=== PATIENT | female | born 1990 | race Caucasian/White ===

== ENCOUNTER 2019-12-18 06:52 | Outpatient (NON) | payer OTHER, SELFPAY ==
[2019-12-18 22:14] LABS: SARS-CoV-2 RNA PCR Negative
== END 2019-12-18 06:53 ==
PROVIDERS: PCP Internal Medicine; Visit Provider Internal Medicine
DX: Z20.828 Contact with and (suspected) exposure to other viral communicable diseases (principal); R68.89 Other general symptoms and signs
CPT/HCPCS: 87635; C9803; U0003

== ENCOUNTER 2019-12-20 15:33 | Outpatient (CLI) | payer OTHER, SELFPAY ==
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
== END 2019-12-20 15:34 | disposition home or self-care (01) ==
PROVIDERS: PCP Internal Medicine; Visit Provider Nurse Practitioner
DX: R05 Cough (principal)
CPT/HCPCS: 71046

== ENCOUNTER 2020-02-08 09:02 | Outpatient (CLI) | payer OTHER, SELFPAY ==
--- NOTE | ~2020-02-08 | US_ITS ---
US breast LT limited INDICATION: Palpable left breast lump at 9-10:00 position. Left breast pain. TECHNIQUE: Dedicated Limited left breast ultrasound COMPARISON: No prior studies for comparison. FINDINGS: The left breast is composed of normal heterogeneous echotexture without focal solid or cyst ic mass. IMPRESSION: 1: Normal left breast ultrasound. BI-RADS CATEGORY 1 - NEGATIVE Reviewed, dictated and finalized at location A. GER PROCESS EXCELLENCE
== END 2020-02-08 09:03 ==
LOC: MICIMG 09:02
PROVIDERS: Visit Provider Nurse Practitioner Obstetrics & Gynecology
DX: N63.20 Unspecified lump in the left breast, unspecified quadrant (principal)
CPT/HCPCS: 76642

== ENCOUNTER 2021-01-20 07:56 | Outpatient (CLI) | payer OTHER, SELFPAY ==
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
[2021-02-09 15:28] VITALS: BMI 53.9
== END 2021-01-21 07:41 | disposition home or self-care (01) ==
LOC: ANHCSM 07:57
PROVIDERS: PCP Internal Medicine; Visit Provider Nurse Practitioner Family
DX: G47.33 Obstructive sleep apnea (adult) (pediatric) (principal); Z99.89 Dependence on other enabling machines and devices
CPT/HCPCS: 95811

== ENCOUNTER 2021-03-20 09:34 | Outpatient (CLI) | payer OTHER, SELFPAY ==
[2021-03-20 11:25] LABS: Lithium 0.2 mmol/L (0.6-1.2)
== END 2021-03-20 09:35 | disposition home or self-care (01) ==
PROVIDERS: PCP Internal Medicine; Visit Provider Internal Medicine
DX: Z51.81 Encounter for therapeutic drug level monitoring (principal); Z79.899 Other long term (current) drug therapy
CPT/HCPCS: 36415; 80178

== ENCOUNTER 2021-09-16 09:29 | Outpatient (CLI) | payer OTHER, SELFPAY ==
[2021-09-16 10:02] LABS: Alanine Aminotransferase 21 U/L (6-35); Albumin Level 4.2 g/dL (3.5-5.1); Alkaline Phosphatase 46 U/L (38-126); Anion Gap 7 mmol/L (8-16); Aspartate Amino Transferase 23 U/L (14-36); Bilirubin,Total 0.6 mg/dL (0.2-1.3); Blood Urea Nitrogen 10 mg/dL (7-17); Calcium 8.4 mg/dL (8.4-10.2); Carbon Dioxide 27 mmol/L (22-30); Chloride 103 mmol/L (98-107); Cholesterol 143 mg/dL (0-200); Estimated Glomerular Filt Rate > 60; Glucose 95 mg/dL (65-110); HDL Direct 35 mg/dL; Potassium 4.4 mmol/L (3.4-5.0); Sodium 137 mmol/L (137-145); Triglycerides 164 mg/dL (<150)
[2021-09-16 10:12] LABS: LDL Cholesterol Direct 58 mg/dL
[2021-09-16 10:23] LABS: Appearance Urine Cloudy (Clear); Bacteria Urine Trace /hpf; Bilirubin Urine 1+ (Negative); Blood Urine Negative (Negative); Color Urine Yellow (Yellow); Glucose Urine UA Negative (Negative); Ketones Urine Negative (Negative); Leukocyte Esterase Ur 2+ LEU/UL (Negative); Mucus Urine Rare /lpf; Nitrate Urine Negative (Negative); Protein Urine 2+ mg/dL (Negative); RBC Urine 21-50 /hpf (0-2); Specific Grav Ur 1.025 (1.001-1.035); Squamous Epithelial Cell Urine Many /hpf (Few); Urobilinogen Urine 0.2 mg/dL (<2.0); WBC Clumps Urine Present /HPF; WBC Urine 31-50 /hpf; pH Urine 6.5 (5.0-9.0)
[2021-09-16 10:36] LABS: Add Urine Microscopic? YES
[2021-09-16 11:11] LABS: Hemoglobin A1C 5.3 % (<5.7)
== END 2021-09-16 09:30 | disposition home or self-care (01) ==
LOC: ANHLAB 09:31
PROVIDERS: PCP Internal Medicine; Visit Provider Nurse Practitioner
DX: G47.00 Insomnia, unspecified (principal); E88.81 Metabolic syndrome and other insulin resistance; R35.0 Frequency of micturition; Z13.21 Encounter for screening for nutritional disorder
CPT/HCPCS: 36415; 80053; 80061; 81001; 83036; 84443; 87086; 87088

== ENCOUNTER 2022-06-02 17:13 | Outpatient (CLI) | payer OTHER, SELFPAY ==
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
== END 2022-06-02 17:14 ==
PROVIDERS: PCP Internal Medicine; Visit Provider Chiropractor
DX: M47.816 Spondylosis without myelopathy or radiculopathy, lumbar region (principal); M47.814 Spondylosis without myelopathy or radiculopathy, thoracic region
CPT/HCPCS: 72072; 72110

== ENCOUNTER 2022-06-09 16:13 | Outpatient (CLI) | payer OTHER, SELFPAY ==
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
== END 2022-06-09 16:14 | disposition home or self-care (01) ==
PROVIDERS: PCP Internal Medicine; Visit Provider Nurse Practitioner
DX: R51.9 Headache, unspecified (principal)
CPT/HCPCS: 70450

== ENCOUNTER 2022-10-19 08:51 | Outpatient (CLI) | payer BC, SELFPAY ==
--- NOTE | ~2022-10-19 | XR_ITS ---
EXAMINATION: XR ankle RT min 3V INDICATION: Right ankle pain TECHNIQUE: Four views of the right ankle are obtained. COMPARISON: None available FINDINGS: Bone alignment is normal. There is no fracture. There is diffuse soft tissue swelling of th e ankle. IMPRESSION: 1. Ankle soft tissue swelling without acute osseous abnormality. Reviewed, dictated and finalized at location A.
== END 2022-10-19 08:52 | disposition home or self-care (01) ==
PROVIDERS: PCP Family Medicine; Visit Provider Nurse Practitioner Family
DX: S99.911A Unspecified injury of right ankle, initial encounter (principal); X58.XXXA Exposure to other specified factors, initial encounter; M79.89 Other specified soft tissue disorders
CPT/HCPCS: 73610

== ENCOUNTER 2023-09-21 08:43 | Outpatient (CLI) | payer MEDICAID, SELFPAY ==
[2023-09-21 10:09] LABS: Basophils Percent Auto 0.3 % (0.2-1.2); Eosinophils Absolute Auto 0.1 K/mm3 (0-0.3); Eosinophils Percent Auto 0.9 % (0-4.4); Hemoglobin 13.5 g/dL (12.0-15.0); Immature Granulocyte Absolute 0.08 K/mm3 (0.00-0.031); Immature Granulocyte Percent A 0.7 % (0-0.5); Lymphocytes Absolute Auto 2.63 K/mm3 (0.9-3.2); Lymphocytes Percent Auto 22.4 % (18.3-44.2); Mean Corpuscular HGB Conc 31.4 g/dl (32-36); Mean Corpuscular Hemoglobin 25.4 pg (26-34); Mean Platelet Volume 9.9 fl (7.4-10.4); Monocytes Absolute Auto 0.6 K/mm3 (0.1-0.6); Monocytes Percent Auto 4.9 % (2.6-8.5); Neutrophils Absolute Auto 8.3 K/mm3 (1.3-6.7); Neutrophils Percent Auto 70.8 % (45.5-73.1); Platelet Count Result 375 k/mm3 (150-375); Red Blood Count 5.31 M/mm3 (4.2-5.4); Red Cell Distribution Width 13.9 % (11.5-14.5); White Blood Count 11.7 K/mm3 (4.5-10.0)
[2023-09-21 10:23] LABS: Alanine Aminotransferase 30 U/L (6-35); Albumin Level 4.3 g/dL (3.5-5.1); Alkaline Phosphatase 66 U/L (38-126); Anion Gap 10 mmol/L (4-12); Aspartate Amino Transferase 28 U/L (14-36); Bilirubin,Total 0.6 mg/dL (0.2-1.3); Blood Urea Nitrogen 9 mg/dL (7-17); Calcium 8.7 mg/dL (8.4-10.2); Carbon Dioxide 27 mmol/L (22-30); Chloride 100 mmol/L (98-107); Cholesterol 164 mg/dL (0-200); Estimated Glomerular Filt Rate > 60; Glucose 107 mg/dL (65-110); HDL Direct 39 mg/dL; Potassium 3.7 mmol/L (3.4-5.0); Sodium 137 mmol/L (137-145); Triglycerides 120 mg/dL (<150)
[2023-09-21 10:34] LABS: LDL Cholesterol Direct 90 mg/dL
[2023-09-21 10:48] LABS: Vitamin D 25 Hydroxy 37.6 ng/mL
[2023-09-21 12:35] LABS: Hemoglobin A1C 6.6 % (<5.7)
[2023-09-23 15:19] LABS: Amphetamines NEGATIVE ng/mL (<500); Barbiturates NEGATIVE ng/mL (<300); Benzodiazepines NEGATIVE ng/mL (<100); Cocaine Metabolite NEGATIVE ng/mL (<150); Marijuana Metabolite POSITIVE ng/mL (<20); Methadone Metabolite NEGATIVE ng/mL (<100); Opiates NEGATIVE ng/mL (<100); Oxidant NEGATIVE mcg/mL (<200); pH 8.1 (4.5-9.0)
== END 2023-09-21 08:44 | disposition home or self-care (01) ==
LOC: ANHLAB 08:45
PROVIDERS: PCP Nurse Practitioner Family; Visit Provider Nurse Practitioner Family
DX: F31.10 Bipolar disorder, current episode manic without psychotic features, unspecified (principal); E66.01 Morbid (severe) obesity due to excess calories; G47.00 Insomnia, unspecified; I10 Essential (primary) hypertension; Z79.899 Other long term (current) drug therapy; F90.9 Attention-deficit hyperactivity disorder, unspecified type; F41.9 Anxiety disorder, unspecified
CPT/HCPCS: 36415; 80053; 80061; 80307; 82306; 83036; 84439; 84443; 85025

== ENCOUNTER 2024-02-06 08:30 | Outpatient (CLI) | payer MEDICAID, SELFPAY ==
[2024-02-06 09:07] LABS: Basophils Absolute Auto 0.1 K/mm3 (0.0-0.1); Basophils Percent Auto 0.4 % (0.2-1.2); Eosinophils Absolute Auto 0.1 K/mm3 (0-0.3); Eosinophils Percent Auto 0.7 % (0-4.4); Hematocrit 47.1 % (37.0-47.0); Hemoglobin 15.2 g/dL (12.0-15.0); Immature Granulocyte Percent A 0.9 % (0-0.5); Lymphocytes Absolute Auto 2.15 K/mm3 (0.9-3.2); Lymphocytes Percent Auto 18.5 % (18.3-44.2); Mean Corpuscular HGB Conc 32.3 g/dl (32-36); Mean Corpuscular Hemoglobin 25.8 pg (26-34); Mean Corpuscular Volume 79.8 fl (80-100); Mean Platelet Volume 9.5 fl (7.4-10.4); Monocytes Absolute Auto 0.5 K/mm3 (0.1-0.6); Monocytes Percent Auto 4.1 % (2.6-8.5); Neutrophils Absolute Auto 8.8 K/mm3 (1.3-6.7); Neutrophils Percent Auto 75.4 % (45.5-73.1); Platelet Count Result 355 k/mm3 (150-375); White Blood Count 11.6 K/mm3 (4.5-10.0)
[2024-02-06 09:19] LABS: Alanine Aminotransferase 65 U/L (6-35); Albumin Level 4.2 g/dL (3.5-5.1); Alkaline Phosphatase 66 U/L (38-126); Anion Gap 10 mmol/L (4-12); Aspartate Amino Transferase 47 U/L (14-36); Bilirubin,Total 0.7 mg/dL (0.2-1.3); Blood Urea Nitrogen 10 mg/dL (7-17); Calcium 9.1 mg/dL (8.4-10.2); Carbon Dioxide 26 mmol/L (22-30); Chloride 102 mmol/L (98-107); Estimated Glomerular Filt Rate > 60; Glucose 139 mg/dL (65-110); Potassium 4.1 mmol/L (3.4-5.0); Sodium 138 mmol/L (137-145)
[2024-02-06 11:21] LABS: Hemoglobin A1C 6.7 % (<5.7)
== END 2024-02-06 08:31 | disposition home or self-care (01) ==
LOC: ANHLAB 08:34
PROVIDERS: PCP Nurse Practitioner Family; Visit Provider Nurse Practitioner Family
DX: F31.10 Bipolar disorder, current episode manic without psychotic features, unspecified (principal); E11.69 Type 2 diabetes mellitus with other specified complication; E66.01 Morbid (severe) obesity due to excess calories; I10 Essential (primary) hypertension; L73.2 Hidradenitis suppurativa
CPT/HCPCS: 36415; 80053; 83036; 85025

== ENCOUNTER 2024-04-27 08:18 | Outpatient (CLI) | payer OTHER, SELFPAY ==
[2024-04-27 09:20] LABS: Anion Gap 10 mmol/L (4-12); Blood Urea Nitrogen 10 mg/dL (7-17); Calcium 9.1 mg/dL (8.4-10.2); Carbon Dioxide 26 mmol/L (22-30); Chloride 102 mmol/L (98-107); Estimated Glomerular Filt Rate > 60; Glucose 118 mg/dL (65-110); Potassium 4.2 mmol/L (3.4-5.0); Sodium 138 mmol/L (137-145)
== END 2024-04-27 08:19 | disposition home or self-care (01) ==
LOC: ANHLAB 08:19
PROVIDERS: PCP Nurse Practitioner Family; Visit Provider Nurse Practitioner Family
DX: I10 Essential (primary) hypertension (principal)
CPT/HCPCS: 36415; 80048

== ENCOUNTER 2024-05-01 08:17 | Outpatient (CLI) | payer OTHER, SELFPAY ==
[2024-05-01 09:06] LABS: Partial Thromboplastin Time 29.5 Seconds (22.3-36.8); Prothrombin Time 13.7 Seconds (11.1-14.7)
[2024-05-01 14:55] LABS: Iron 58 ug/dL (37-170)
[2024-05-01 15:23] LABS: Percent Iron Saturation 15 % (20-50)
[2024-05-01 17:41] LABS: Hemoglobin A1C 6.2 % (<5.7)
[2024-05-01 18:05] LABS: Cholesterol 158 mg/dL (0-200); HDL Direct 35 mg/dL; Triglycerides 234 mg/dL (<150)
[2024-05-01 18:09] LABS: LDL Cholesterol Direct 70 mg/dL
[2024-05-01 18:25] LABS: Vitamin D 25 Hydroxy 28.7 ng/mL
[2024-05-02 07:42] LABS: Transferrin 275 mg/dL (206-381)
[2024-05-02 19:15] LABS: Folic Acid 14.5 ng/mL (2.76->20)
== END 2024-05-01 08:18 | disposition home or self-care (01) ==
PROVIDERS: PCP Nurse Practitioner Family
DX: Z01.818 Encounter for other preprocedural examination (principal); E66.01 Morbid (severe) obesity due to excess calories; E53.8 Deficiency of other specified B group vitamins
CPT/HCPCS: 36415; 80061; 82306; 82607; 82746; 82747; 83036; 83540; 83550; 84443; 84466; 85610; 85730

== ENCOUNTER 2024-06-18 14:53 | Outpatient (CLI) | payer OTHER, SELFPAY ==
[2024-06-18 15:42] LABS: Add Urine Microscopic? YES; Appearance Urine Turbid (Clear); Bilirubin Urine Negative (Negative); Blood Urine 3+ (Negative); Color Urine Yellow (Yellow); Glucose Urine UA Negative (Negative); Ketones Urine 1+ mg/dL (Negative); Leukocyte Esterase Ur 3+ LEU/UL (Negative); Nitrate Urine Positive (Negative); Protein Urine 2+ mg/dL (Negative); Specific Grav Ur 1.021 (1.001-1.035); Urobilinogen Urine 0.2 mg/dL (<2.0)
[2024-06-18 15:59] LABS: Bacteria Urine 4+ /hpf; RBC Urine 21-50 /hpf (0-2); Squamous Epithelial Cell Urine Moderate /hpf (Few); WBC Urine >100 /hpf (0-3)
[2024-06-18 16:00] LABS: Calcium Oxalate Crystals Urine Present /hpf
--- OUTSIDE RECORDS SUMMARY | 2024-06-18 16:52 | XMS_ITS | Clinical Summary ---
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 Role Phone Unavailable Primary Care Provider Unavailabl e Social History Tobacco Use Types Packs/Day Years Used Date Smoking Tobacco: Never Assessed Comments Unknown Sex and Gender Information Value Date Recorded Sex Assigned at Not on file Legal Sex Female 5:11 PM [employer] Gender Identity Not on file Sexual Orientation Not on file Plan of Treatment Health Maintenance Due Date Last Done Comments Cervical Cancer Screening Pa p Smear (Age 30 to 64) Every 3 Years 1992 Annual Physical 09/21/1995 Hepatitis C 2010 DTaP, Tdap and Td Vaccines ( 1 - Tdap) 09/21/2011 Hepatitis B Vaccines (1 of 3 - 19+ 3-dose series) 09/21/2011 Cervical Cancer Screening Pa p with HPV Testing (Age 30 to 64) Every 5 Years 2022 Cervical Cancer Screening with HPV 2022 COVID-19 Vaccine (2023-2 5 season) 2023 HPV Vaccines Aged Out No longer eligi ble based on patient's age to complete this topic Meningococcal B Vaccine Aged Out No l onger eligible based on patient's age to complete this topic Meningococcal Vaccine Aged Out No yovana vasquez eligible based on patient's age to complete this topic Pneumococcal Vaccine: Pediat rics (0 to 5 Years) and At-Risk Patients (6 to 49 Years) Aged Out No longer eligible b ased on patient's age to complete this topic RSV Immunizations Under 20 Months Aged Out No longer eligible based on patient's age to complete this topic
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
--- OUTSIDE RECORDS SUMMARY | 2024-06-18 16:52 | XMS_ITS | Clinical Summary ---
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
--- OUTSIDE RECORDS SUMMARY | 2024-06-18 16:52 | XMS_ITS | Patient Health Record ---
Author Organization [facility] Address [address] [place] [address] Care Team Providers Care Home Appraiser Name Role Phone Flip Medellin Primary Care Provider Dunia Prieto [phone] Allergies Allergen (clinical drug ingredient) Drug/Non Drug Allergy documented on EMR Reaction Allergy Type Onset Date Status Penicillin hives Drug Allergy Active Reason For Referral Reason Start individual the rapy Diagnosis 1 Bipolar 1 disorder ( F31.9) Referral Organization [facility] Referring Provider First Name Flip Referring Provider Last Name Lacie Referring Provider Speciality Psychiatry Referred Provider [facility] Clinical Notes Beth Grande 02:05:00 PM >TIER indicates client has already begun the process of intake for therapy. Referral Priority Routine Medications Medication SIG (Take, Route, Frequency, Duration) Notes Start Date End Date Status hydrOXYzine HCl 25 MG 1-2 tablets as nee ded Orally three times a day Not-Shreyas ing Lurasidone HCl 60 MG 1 tablet in the candice sowmya with food Orally Once a day for 30 days Active Ozempic 0.5 mg Active Social History Tobacco Use: Social History Observation Description Date Details (start date - stop date) Never Smoker NA - NA PRAPARE Question Answer Notes Date Completed/Updated: 10/05/2023 What is your current housing situation? I have housing Are you worried about losing your housing? No son is currently staying with his father What is the highest level of school that you have finished? High school diploma or GED In the past year, have you o r any family members you live with been unable to get any of the following when it was really needed? Check all that apply Medicine or any health care (medical, dental, mental health or vision) Has lack of transportation k ept you from medical appointments, meetings, work or from getting things needed for daily living? No How often do you see or talk to people that you care about and feel close to? (For example: talking to friends on the phone, visiting friends or family, going to cheondoism or club meetings) 3 to 5 times a week How stressed are you? Stress is when someone feels tense, nervous, anxious, or can\t sleep at night because their mind is troubled A little bit states the she feels better on the olanzapine, currently holding off on the adderall due to the bobbi In the past year have you sp ent more than 2 nights in a row in a detention, nursing home, [place] [facility] center, or juvenile correctional facility? No Are you a refugee? No What country are you from? [place] Do you feel physically and emotionally safe where you currently live? Yes states she feels safe in her current environment In the past year, have you b een afraid of your partner or ex-partner? No PRAPARE Score: 5 Tobacco Control (Standard) Question Answer Notes Tobacco use: Nonsmoker Problems Problem Type SNOMED Code ICD Code Onset Dates Problem Status W/U Status Risk Notes Problem Attention deficit hyperactivity disorder (301366475) ADHD (attention deficit hyperactivity disorder), combined type (F90.2) 11/15/19 24 Active confirmed Problem Bipolar 1 disorder (243310539) Bipolar 1 disorder (F31.9) 09/23/19 24 Active confirmed Vital Signs Heart Rate 100 /min 10/05/2023 Respiratory Rate 18 /min 10/05/2023 Blood pressure diastolic 80 mm Hg 10/05/2023 Oximetry 98 % 10/05/2023 Height 70 in 10/05/2023 Blood pressure systolic 132 mm Hg 10/05/2023 Weight 424.4 lbs 10/05/2023 BMI 60.89 kg/m2 10/05/2023 Encounters Encounter Location Date Provider Diagnosis [address] [address] 09/23/2023 Kyria Medellin Bipolar 1 disorder F31.9 and Cannabis use disorder F12.90 [facility] [address] [place] [phone] 10/05/2023 Kyria Medellin Bipolar 1 disorder F31.9 ; Cannabis use disorder F12.90 and Nutritional counseling Z71.3 [place] [address] [place] [phone] 10/05/2023 Dunia Prieto [facility] [address] [place] [phone] 10/18/2023 Kyria Medellin Bipolar 1 disorder F31.9 and Cannabis use disorder F12.90 [place] [address] [place] [phone] 11/15/2023 Kyria Medellin Bipolar 1 disorder F31.9 ; ADHD (attention deficit hyperactivity disorder), combined type F90.2 and Cannabis use disorder F12.90 [place] [address] [place] [phone] 12/15/2023 Kyria Medellin ADHD (attention deficit hyperactivity disorder), combined type F90.2 ; Bipolar 1 disorder F31.9 and Cannabis use disorder F12.90 [place] [address] [place] [phone] 01/17/2024 Kyria Medellin ADHD (attention deficit hyperactivity disorder), combined type F90.2 ; Bipolar 1 disorder F31.9 and Cannabis use disorder F12.90 [facility] [address] [place] [phone] 02/23/2024 Kyria Medellin ADHD (attention deficit hyperactivity disorder), combined type F90.2 ; Bipolar 1 disorder F31.9 and Cannabis use disorder F12.[address] [address] 05/22/2024 Kyria Medellin ADHD (attention deficit hyperactivity disorder), combined type F90.2 ; Bipolar 1 disorder F31.9 and Cannabis use disorder F12.[address] [address] 09/23/2023 Flip Medellin [address] [place] [address] 11/04/2023 Flip Medellin [facility] [address] [place] [address] 11/04/2023 Flip Medellin Bipolar 1 disorder F31.[address] [place] [address] 04/30/2024 Flip Medellin Assessments Encounter Date Diagnosis (ICD Code) Assessment Notes Treatment Notes Treatment Clinical Notes Section Notes 09/23/2023 Bipolar 1 disorder (ICD-10 - F31.9) History: Family hx of bipolar disorder in mother/grandmother possibly brother. Hx of trialing Trazodone 50 mg, Celexa 10 mg, Adderall 10 mg BID, Adderall XR 30 mg, olanzapine 10 mg, lithium 300 mg BID, Zoloft 50 mg, Lamictal 100 mg, Abilify 5 mg, Wellbutrin XL 150 mg, Lunesta 2 mg. 1 hospitalization for bobbi in 2020 at [facility] with diagnosis of Bipolar disorder. Denies any previous SA/HI or SIB or AVH. Reports passive SI when depressed. Has 1 son who is 8. Today's visit: Patient is a 33-year-old female who presents for a psychiatric evaluation over phone and is located in [place]. PHQ-9 score of 16, JAYCOB-7 score of 19, MDQ with 13 yes. Not currently prescribed/taking any psychotropic medications. Pt presents with manic symptoms this appt as evidenced by pressured speech, circumstantial responses, hyper talkative. Does report some feelings paranoia and delusions of grandiosity such as being psychic and having connections with influential people. She appears mostly pleasant during conversation and is directable as needed. She does not endorse any feelings of SI/HI. She is agreeable to retrialing Zyprexa and is instructed to take her first dose today. She appears to have a good support system with her mother and son's father who she lives with. Provided pt education regarding olanzapine through HIPPA compliant text message and she is agreeable to next visit being in person. Educated pt on cannabis use and bipolar d/o, and she is encouraged to stop using. Further referred to crisis team for daily check-ins until more stabilized on medication. Unable to complete AIMS due to nature of appt, denies any irregular muscle movements; would benefit from an in person appointment.She is agreeable to treatment plan and is provided an opportunity to ask questions. May self-administer medications or be administered own oral medications per [facility] protocols. Provided informed consent with understanding of side effects, adverse effects, risks and benefits as well as alternative treatments as previously discussed and with the above recommended medications & other aspects of the treatment program. Agrees to return sooner if symptoms worsen or suicidal or homicidal ideations occur. 09/23/2023 Cannabis use disorder (ICD-10 - F12.90) 10/05/2023 Bipolar 1 disorder (ICD-10 - F31.9) History: Family hx of bipolar disorder in mother/grandmother possibly brother. Hx of trialing Trazodone 50 mg, Celexa 10 mg, Adderall 10 mg BID, Adderall XR 30 mg, olanzapine 10 mg, lithium 300 mg BID, Zoloft 50 mg, Lamictal 100 mg, Abilify 5 mg, Wellbutrin XL 150 mg, Lunesta 2 mg. 1 hospitalization for bobbi in 2020 at [facility] with diagnosis of Bipolar disorder. Denies any previous SA/HI or SIB or AVH. Reports passive SI when depressed. Has 1 son who is 8. Today's visit: Patient is a 33-year-old female who presents for a psychiatric follow-up over phone and is located in [place]. Previously seen on 09/23/2023 and during this appt was started on Olanzapine, PHQ-9 score of 16, today is 10. Pt reports noticeable decrease in her manic sx to include feeling more calm, decreased racing thoughts, not feeling grandiose, decreased energy in general, sleeping more. She does report noticeable increase in appetite. Discussed transitioning her to another mood stabilizer such as Latuda d/t concerns for weight, and she is agreeable. Encouraged pt to trial hydroxyzine as needed for sleep as well. She is okay with cross tapering olanzapine, discussed taking half for 5 mg for 4-7 days while starting Latuda. Encourage pt to continue reducing cannabis use. During future appts will further evaluate for ADHD sx and discuss non-stimulant options she can trial if warranted. AIMS is unremarkable. She is going to send lab work to office, do not see in chart. No acute safety concerns the time of this appt, he is agreeable to treatment plan and was provided an opportunity to ask questions. May self-administer medications or be administered own oral medications per [facility] protocols. Provided informed consent with understanding of side effects, adverse effects, risks and benefits as well as alternative treatments as previously discussed and with the above recommended medications & other aspects of the treatment program. Agrees to return sooner if symptoms worsen or suicidal or homicidal ideations occur. 10/18/2023 Bipolar 1 disorder (ICD-10 - F31.9) History: Family hx of bipolar disorder in mother/grandmother possibly brother. Hx of trialing Trazodone 50 mg, Celexa 10 mg, Adderall 10 mg BID, Adderall XR 30 mg, olanzapine 10 mg, lithium 300 mg BID, Zoloft 50 mg, Lamictal 100 mg, Abilify 5 mg, Wellbutrin XL 150 mg, Lunesta 2 mg. 1 hospitalization for bobbi in 2020 at [facility] with diagnosis of Bipolar disorder. Denies any previous SA/HI or SIB or AVH. Reports passive SI when depressed. Has 1 son who is 8. Today's visit: Patient is a 33-year-old female who presents for a psychiatric follow-up over phone and is located in [place]. Previously seen on 10/05/23 and during this appt was decreased on Zyprexa to 5 mg and started on Latuda in the evening alternatively d/t concerns for weight. Pt reports some insomnia (with restless legs) and irritability since the switch to Latuda, but notes improvement in anxiety. Denies any feelings of bobbi. Suspect Latuda absorption may be reduced as she is not taking it with food. Advised patient to take Latuda with dinner or an evening snack of at least 300 calories and will see if this improves efficacy. Pt's report of restless legs usually follow insomnia. Reports side effect of daytime somnolence. Unable to complete AIMS due to nature of appt, denies any irregular muscle movements; would benefit from an in person appointment. Will continue Latuda at current dose, encourage with food for increased absorption of medication and to take earlier in the evening to see if this also helps with daytime somnolence. No acute safety concerns at the time of this appt, she is agreeable to treatment plan and was provided an opportunity to ask questions. May self-administer medications or be administered own oral medications per [facility] protocols. Provided informed consent with understanding of side effects, adverse effects, risks and benefits as well as alternative treatments as previously discussed and with the above recommended medications & other aspects of the treatment program. Agrees to return sooner if symptoms worsen or suicidal or homicidal ideations occur. 10/18/2023 Cannabis use disorder (ICD-10 - F12.90) 11/04/2023 Bipolar 1 disorder (ICD-10 - F31.9) 11/15/2023 ADHD (attention deficit hyperactivity disorder), combined type (ICD-10 - F90.2) History: Family hx of bipolar disorder in mother/grandmother possibly brother. Hx of trialing Trazodone 50 mg, Celexa 10 mg, Adderall 10 mg BID, Adderall XR 30 mg, olanzapine 10 mg, lithium 300 mg BID, Zoloft 50 mg, Lamictal 100 mg, Abilify 5 mg, Wellbutrin XL 150 mg, Lunesta 2 mg. 1 hospitalization for bobbi in 2020 at [facility] with diagnosis of Bipolar disorder. Denies any previous SA/HI or SIB or AVH. Reports passive SI when depressed. Has 1 son who is 8. Today's visit: Patient is a 33-year-old female who presents for a psychiatric follow-up over phone and is located in [place]. Previously seen on 10/18/2023 and during this appt was continued on Latuda 40 mg. Previous PHQ-9 score of 10, today is 17. Reporting daytime fatigue interfering with school performance, likely due to lurasidone. She has a history of ADHD, supported by today's screening, but is not currently on treatment. Given concerns for manic switch with stimulant treatment in setting of bipolar disorder, plan is to start Strattera 40mg daily in morning and continue lurasidone for now. Will consider lurasidone dose adjustment in future if fatigue persists or trialing another mood stabilizer. Patient is amenable to this plan. Unable to complete AIMS due to nature of appt, denies any irregular muscle movements; would benefit from an in person appointment.No acute safety concerns at the time of this appt, she is agreeable to treatment plan and was provided an opportunity to ask questions. May self-administer medications or be administered own oral medications per [facility] protocols. Provided informed consent with understanding of side effects, adverse effects, risks and benefits as well as alternative treatments as previously discussed and with the above recommended medications & other aspects of the treatment program. Agrees to return sooner if symptoms worsen or suicidal or homicidal ideations occur. 11/15/2023 Bipolar 1 disorder (ICD-10 - F31.9) 12/15/2023 ADHD (attention deficit hyperactivity disorder), combined type (ICD-10 - F90.2) History: Family hx of bipolar disorder in mother/grandmother possibly brother. Hx of trialing Trazodone 50 mg, Celexa 10 mg, Adderall 10 mg BID, Adderall XR 30 mg, olanzapine 10 mg, lithium 300 mg BID, Zoloft 50 mg, Lamictal 100 mg, Abilify 5 mg, Wellbutrin XL 150 mg, Lunesta 2 mg. 1 hospitalization for bobbi in 2020 at [facility] with diagnosis of Bipolar disorder. Denies any previous SA/HI or SIB or AVH. Reports passive SI when depressed. Has 1 son who is 8. Today's visit: Patient is a 33-year-old female who presents for a psychiatric follow-up over phone and is located in [place]. Previously seen on 11/15/2023 and during this appt was continued on Latuda 40 mg and started on Strattera 40 mg for ADHD. Previous PHQ-9 score of 17, today is 11. Reports her moods have been feeling pretty stable mostly on Latuda and does not wish for any adjustment. She reports starting atomoxetine has not noticed any changes at all, will increase to 60 mg and wait another 4 weeks before reassessing effectiveness of medication. If no noticeable changes, may consider switching to Qelbree. Patient is amenable to this plan. Unable to complete AIMS due to nature of appt, denies any irregular muscle movements; would benefit from an in person appointment.No acute safety concerns at the time of this appt, she is agreeable to treatment plan and was provided an opportunity to ask questions. May self-administer medications or be administered own oral medications per [facility] protocols. Provided informed consent with understanding of side effects, adverse effects, risks and benefits as well as alternative treatments as previously discussed and with the above recommended medications & other aspects of the treatment program. Agrees to return sooner if symptoms worsen or suicidal or homicidal ideations occur. 01/17/2024 ADHD (attention deficit hyperactivity disorder), combined type (ICD-10 - F90.2) History: Family hx of bipolar disorder in mother/grandmother possibly brother. Hx of trialing Trazodone 50 mg, Celexa 10 mg, Adderall 10 mg BID, Adderall XR 30 mg, olanzapine 10 mg, lithium 300 mg BID, Zoloft 50 mg, Lamictal 100 mg, Abilify 5 mg, Wellbutrin XL 150 mg, Lunesta 2 mg. 1 hospitalization for bobbi in 2020 at [facility] with diagnosis of Bipolar disorder. Denies any previous SA/HI or SIB or AVH. Reports passive SI when depressed. Has 1 son who is 8. Today's visit: Patient is a 33-year-old female who presents for a psychiatric follow-up over phone and is located in [place]. Presents with ongoing symptoms of depression and poor concentration with Strattera 60 mg not providing adequate improvement, and Latuda 40 mg helpful for mood stability but not fully addressing depressive symptoms. Plan to increase Latuda to 60 mg and Strattera to 80 mg to target residual symptoms. Patient is agreeable to medication adjustments and will follow up in 4-6 weeks to assess response. Unable to complete AIMS due to nature of appt, denies any irregular muscle movements; would benefit from an in person appointment.No acute safety concerns at the time of this appt, she is agreeable to treatment plan and was provided an opportunity to ask questions. May self-administer medications or be administered own oral medications per [facility] protocols. Provided informed consent with understanding of side effects, adverse effects, risks and benefits as well as alternative treatments as previously discussed and with the above recommended medications & other aspects of the treatment program. Agrees to return sooner if symptoms worsen or suicidal or homicidal ideations occur. 02/23/2024 ADHD (attention deficit hyperactivity disorder), combined type (ICD-10 - F90.2) History: Family hx of bipolar disorder in mother/grandmother possibly brother. Hx of trialing Trazodone 50 mg, Celexa 10 mg, Adderall 10 mg BID, Adderall XR 30 mg, olanzapine 10 mg, lithium 300 mg BID, Zoloft 50 mg, Lamictal 100 mg, Abilify 5 mg, Wellbutrin XL 150 mg, Lunesta 2 mg. 1 hospitalization for bobbi in 2020 at [facility] with diagnosis of Bipolar disorder. Denies any previous SA/HI or SIB or AVH. Reports passive SI when depressed. Has 1 son who is 8. Today's visit: Patient is a 33-year-old female who presents for a psychiatric follow-up over phone and is located in [place]. Previously seen on 01/17/2024 and during this appt was increased on Latuda to 60 mg QHS and increased on atomoxetine to 80 mg. Previous PHQ-9 score of 8, today is 7. Recently increased dose but did not notice significant difference, agrees to continue same dose for now when asked if she would like to decrease to previous dose. Reports recent abnormal EKG and heart monitor findings per cardiology, with concern for Strattera causing abnormal heart palpitations, so she discontinued on 02/15 with upcoming stress test. Patient is hoping to be cleared by cardiology for weight loss surgery. Will hold off on any ADHD medications including Strattera for now pending further cardiac workup, as limited options due to potential cardiac side effects. Unable to complete AIMS due to nature of appt, denies any irregular muscle movements; would benefit from an in person appointment.No acute safety concerns at the time of this appt, she is agreeable to treatment plan and was provided an opportunity to ask questions. May self-administer medications or be administered own oral medications per [facility] protocols. Provided informed consent with understanding of side effects, adverse effects, risks and benefits as well as alternative treatments as previously discussed and with the above recommended medications & other aspects of the treatment program. Agrees to return sooner if symptoms worsen or suicidal or homicidal ideations occur. 05/22/2024 ADHD (attention deficit hyperactivity disorder), combined type (ICD-10 - F90.2) History: Family hx of bipolar disorder in mother/grandmother possibly brother. Hx of trialing Trazodone 50 mg, Celexa 10 mg, Adderall 10 mg BID, Adderall XR 30 mg, olanzapine 10 mg, lithium 300 mg BID, Zoloft 50 mg, Lamictal 100 mg, Abilify 5 mg, Wellbutrin XL 150 mg, Lunesta 2 mg. 1 hospitalization for bobbi in 2020 at [facility] with diagnosis of Bipolar disorder. Denies any previous SA/HI or SIB or AVH. Reports passive SI when depressed. Has 1 son who is 8. Today's visit: Patient is a 33-year-old female who presents for a psychiatric follow-up over phone and is located in [place]. Previously seen Jan 2024 and during this appt was continued on Latuda to 60 mg and stopped on atomoxetine (had self-discontinued). Previous PHQ-9 score of 7, today is 5. Reports approved for gastric sleeve on Tuesday; understandably some anxiety about changes in her body and surgery. Reports mood stability on Latuda and wishes to continue taking as prescribed. Unable to complete AIMS due to nature of appt, denies any irregular muscle movements; would benefit from an in person appointment.No acute safety concerns at the time of this appt, she is agreeable to treatment plan and was provided an opportunity to ask questions. May self-administer medications or be administered own oral medications per [facility] protocols. Provided informed consent with understanding of side effects, adverse effects, risks and benefits as well as alternative treatments as previously discussed and with the above recommended medications & other aspects of the treatment program. Agrees to return sooner if symptoms worsen or suicidal or homicidal ideations occur. 05/22/2024 Bipolar 1 disorder (ICD-10 - F31.9) 02/23/2024 Bipolar 1 disorder (ICD-10 - F31.9) 01/17/2024 Bipolar 1 disorder (ICD-10 - F31.9) 12/15/2023 Bipolar 1 disorder (ICD-10 - F31.9) 11/15/2023 Cannabis use disorder (ICD-10 - F12.90) 10/05/2023 Cannabis use disorder (ICD-10 - F12.90) 10/05/2023 Nutritional counseling (ICD-10 - Z71.3) 12/15/2023 Cannabis use disorder (ICD-10 - F12.90) 01/17/2024 Cannabis use disorder (ICD-10 - F12.90) 02/23/2024 Cannabis use disorder (ICD-10 - F12.90) 05/22/2024 Cannabis use disorder (ICD-10 - F12.90) 09/23/2023 Other Olanzapine Oral Tablet (OLANZAPINE - ORAL) material was printed 10/05/2023 Other Provided case management services to address social determinants of health needs and reduce barriers to health care services. Plan Of Treatment No Information Insurance Providers Payer Name Payer Address Payer Phone Subscriber Number Group Number Insured Name Patient Relationship to Insured Coverage Start Date Coverage End Date [facility] Claims Department [address] [place] [address] [phone] [id number] Anita Cisneros Self - patient is the insured 4 [address] [place] [address] [id number] Anita Cisneros Self - patient is the insured 4 4 [employer] [place] [address] [place] [address] [id number] Anita Cisneros Self - patient is the insured 4 4 [facility] Claims [facility] [address] [place] [address] [phone] [id number] Anita Cisneros Self - patient is the insured 4 Medical (General) History Medical History History ICD Code Hemorrhoid Surgical History Surgery Date(Month/Year) gland stones removed. Hospitalization History Reason Date(Month/Year) broken arm 01/2020 [facility] 01/2021
--- OUTSIDE RECORDS SUMMARY | 2024-06-18 16:52 | XMS_ITS | Data Portability ---
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 We reviewed the typical evaluation with labs, pelvic US and possible endometrial biopsy. Briefly discussed the options available for treatment (depending on the results of evaluation) such as hormonal treatment (OCPs, progestins), Mirena, endometrial ablation, and surgery. We spent more than 30 minutes face to face. the patient has an IUD. She had abnormal bleeding in the past. [email or web address] Not available 12/26/2020 14:37:18 04/24/2021 04/24/2021 Annual gynecological exam performed. Patient will come back in a year unless there are new symptoms. Suggest Calcium with Vitamin D if not eating in diet. Patient advised to get annual flu shot. Recommend yearly physicals and preform monthly breast exams. Genetic testing is available for patients with family history of cancer. Engage in safe sexual practices, use condoms. Encouraged to have daily exercise. Avoid tobacco and illicit drugs, moderation of alcohol. If BMI greater than 25 dietary consult advised. If you have any questions please call or email. Not available 04/24/2021 16:54:56 08/24/2023 08/24/2023 Annual gynecological exam performed. Patient will come back in a year unless there are new symptoms. [email or web address] Not available 08/24/2023 10:57:17 Plan of Treatment Reminders Order Date Submit Date Provider Last Modified By Organization Details Last Modified Time Details Appointments None recorded. Lab unlisted lab - 17-oh progesteron e, lc/MS/MS 2020 [facility] (Lab), [address], [place], [address], 23:19:25 dhea-sulfat e, serum 2020 [facility] (Lab), [address], [place], [address], 23:19:21 hormone panel, serum or plasma 2020 [facility] (Lab), [address], [place], [address], 23:19:24 HbA1c (hemoglobin A1c), blood 2020 [facility] (Lab), [address], [place], [address], 23:19:24 progesteron e, serum 2020 [facility] (Lab), [address], [place], [address], 23:19:23 prolactin, serum 2020 [facility] (Lab), [address], [place], [address], 23:19:23 shbg (sex hormone-bin ding globulin), serum 2020 [facility] (Lab), [address], [place], [address], 23:19:22 testosteron e free/testos terone total, ratio, serum 2020 [facility] (Lab), [address] [facility], [place], [address], 23:19:25 TSH, serum or plasma 2020 [facility] (Lab), [address], [place], [address], 23:19:21 CBC 2020 [facility] (Lab), [address], [place], [address], 23:19:20 CMP, serum or plasma 2020 [facility] (Lab), [address] [facility], [place], [address], 23:19:22 vitamin D, 25-hydroxy, total, serum 2020 [facility] (Lab), [address], [place], [address], 23:19:23 Referral None recorded. Procedures None recorded. Surgeries None recorded. Imaging US, pelvis [address], [address], [address], [place], [address], 21:27:20 US, transvagina l [address], [address], [address], [place], [address], 21:27:20 US, pelvis, complete 2020 [email or web address] [facility], [address], [place] [address], [place], [address], 15:21:52 Medication Orders metronidazo le 500 mg tablet 2021 [email or web address] [facility] #[id number], [address], [place], [place], [id number], 11:05:58 nystatin-tr iamcinolone 100,000 unit/gram-0 .1 % topical ointment 2021 [facility] #[id number], [address], [place], [place], [id number], 11:03:11 Patient TargetsNo targets recorded. Patient InstructionsNo instructions recorded. Reason for Referral None Reported. Results Created Date Observation Date Name Description Value Unit Range Abnormal Flag Note LastModifiedBy Organization Detail LastModifiedTime 12/31/1912/30/2020 CBC (HEMO GRAM) WBC 12.1 10'3/ uL 3.6-10 .2 high Not Available [facility] (Lab) [address] [place], [address], 01/06/2021 23:19:20 12/31/19 21 12/30/2020 CBC (HEMO GRAM) RBC 5.20 10'6/ uL (based on docume nted legal sex) 4.10-5 .30 Not Available [facility] (Lab) [address] [place], [address], 01/06/2021 23:19:20 12/31/19 21 12/30/2020 CBC (HEMO GRAM) HGB 13.8 g/dL (based on docume nted legal sex) 11.9-1 5.8 Not Available [facility] (Lab) [address] [place], [address], 01/06/2021 23:19:20 12/31/19 21 12/30/2020 CBC (HEMO GRAM) HCT 43.1 % (based on docume nted legal sex) 37.4-4 8.3 Not Available [facility] (Lab) [address] [facility], [place], [address], 01/06/2021 23:19:20 12/31/19 21 12/30/2020 CBC (HEMO GRAM) MCV 83.0 fL 82.0-9 9.0 Not Available [facility] (Lab) [address] [facility], [place], [address], 01/06/2021 23:19:20 12/31/19 21 12/30/2020 CBC (HEMO GRAM) MCH 27.0 pg 27.0-3 3.0 Not Available [facility] (Lab) [address] [facility] [address] [address], [place], [address], 01/06/2021 23:19:20 12/31/19 21 12/30/2020 CBC (HEMO GRAM) MCHC 32.0 g/dL 32.0-3 6.0 Not Available [facility] (Lab) [address] [facility] [address], [place], [address], 01/06/2021 23:19:20 12/31/19 21 12/30/2020 CBC (HEMO GRAM) RDW 14.0 % 11.0-1 5.0 Not Available [facility] (Lab) [address] [facility] [address], [place], [address], 01/06/2021 23:19:20 12/31/19 21 12/30/2020 CBC (HEMO GRAM) plt 374 10'3/ uL 150-45 0 Not Available [facility] (Lab) [address] [facility] [address], [place], [address], 01/06/2021 23:19:20 12/31/19 21 12/30/2020 CBC (HEMO GRAM) MPV 10.2 fL 9.8-12 .7 Not Available [facility] (Lab) [address] [facility] [address], [place], [address], 01/06/2021 23:19:20 12/31/19 21 12/30/2020 CBC (HEMO GRAM) NRBC's 0.00 % 0 Not Available [facility] (Lab) [address], [place], [address], 01/06/2021 23:19:20 12/31/19 21 12/30/2020 CBC (HEMO GRAM) absolute NRBCs 0.0 10'3/ uL 0 2020 1:42 AM: P indic ates parti al resul ts on a panel have been relea sed. Addit ional resul ts will follo w. 2020 1:42 AM: This resul t has been final verif ied. No addit ional or joiner ed resul ts are expec randy. Not Available [facility] (Lab) [address], [place], [address], 01/06/2021 23:19:20 12/31/19 21 12/30/2020 DHEA SULFA TE DHEA-sulfate 153 ug/dL Femal e Range s Age(y ) Range (ug/d L) 10-15 34-28 0 15-20 65-36 8 20-25 148-4 07 25-35 99-34 0 35-45 61-33 7 45-55 35-25 6 55-65 19-20 5 65-75 9-246 > 75 12-15 4 Not Available [facility] (Lab) [address], [place], [address], 01/06/2021 23:19:21 12/31/19 21 12/30/2020 TSH, REFLE X FREE T4 TSH 2.74 uIU/m L 0.30-5 .33 Not Available [facility] (Lab) [address], [place], [address], 01/06/2021 23:19:21 12/31/19 21 12/30/2020 HUMAN SEX HORMO NE LAQUITA NG GLOBU JAILENE sex hormone binding globulin 29.0 nmole s/L 18.2-1 35.5 Not Available [facility] (Lab) [address], [place], [address], 01/06/2021 23:19:22 12/31/19 21 12/30/2020 CMP(C OMPRE HENSI VE METAB OLIC PANEL ) sodium 139 mmol/ L 133-14 6 Not Available [facility] (Lab) [address], [place], [address], 01/06/2021 23:19:22 12/31/19 21 12/30/2020 CMP(C OMPRE HENSI VE METAB OLIC PANEL ) potassium 4.2 mmol/ L 3.5-5. 1 Not Available [facility] (Lab) [address] [facility] [address], [place], [address], 01/06/2021 23:19:22 12/31/19 21 12/30/2020 CMP(C OMPRE HENSI VE METAB OLIC PANEL ) chloride 103 mmol/ L 98-107 Not Available [facility] (Lab) [address] [facility] [address], [place], [address], 01/06/2021 23:19:22 12/31/19 21 12/30/2020 CMP(C OMPRE HENSI VE METAB OLIC PANEL ) carbon dioxide 27 mmol/ L 21-31 Not Available [facility] (Lab) [address] [facility] [address], [place], [address], 01/06/2021 23:19:22 12/31/19 21 12/30/2020 CMP(C OMPRE HENSI VE METAB OLIC PANEL ) anion gap 9 mmol/ L 4-13 Not Available [facility] (Lab) [address] [facility] [address], [place], [address], 01/06/2021 23:19:22 12/31/19 21 12/30/2020 CMP(C OMPRE HENSI VE METAB OLIC PANEL ) blood urea nitrogen 10 mg/dL 7-25 Not Available [facility] (Lab) [address], [place], [address], 01/06/2021 23:19:22 12/31/19 21 12/30/2020 CMP(C OMPRE HENSI VE METAB OLIC PANEL ) creatinine 0.67 mg/dL 0.60-1 .30 Not Available [facility] (Lab) [address], [place], [address], 01/06/2021 23:19:22 12/31/19 21 12/30/2020 CMP(C OMPRE HENSI VE METAB OLIC PANEL ) calcium 9.2 mg/dL 8.3-10 .5 Not Available [facility] (Lab) [address], [place], [address], 01/06/2021 23:19:22 12/31/19 21 12/30/2020 CMP(C OMPRE HENSI VE METAB OLIC PANEL ) glucose 93 mg/dL 70-100 Not Available [facility] (Lab) [address], [place], [address], 01/06/2021 23:19:22 12/31/19 21 12/30/2020 CMP(C OMPRE HENSI VE METAB OLIC PANEL ) protein, total 7.0 g/dL 6.4-8. 3 Not Available [facility] (Lab) [address], [place], [address], 01/06/2021 23:19:22 12/31/19 21 12/30/2020 CMP(C OMPRE HENSI VE METAB OLIC PANEL ) albumin 4.2 g/dL 3.5-5. 0 Not Available [facility] (Lab) [address], [place], [address], 01/06/2021 23:19:22 12/31/19 21 12/30/2020 CMP(C OMPRE HENSI VE METAB OLIC PANEL ) ALT 16 units /L 9-43 Not Available [facility] (Lab) [address], [place], [address], 01/06/2021 23:19:22 12/31/19 21 12/30/2020 CMP(C OMPRE HENSI VE METAB OLIC PANEL ) alkaline phosphatase 55 units /L 34-104 Not Available [facility] (Lab) [address] [facility] [address], [place], [address], 01/06/2021 23:19:22 12/31/19 21 12/30/2020 CMP(C OMPRE HENSI VE METAB OLIC PANEL ) AST 12 units /L 13-39 low Not Available [facility] (Lab) [address] [facility] [address], [place], [address], 01/06/2021 23:19:22 12/31/19 21 12/30/2020 CMP(C OMPRE HENSI VE METAB OLIC PANEL ) bilirubin, total 0.4 mg/dL 0.2-1. 2 Not Available [facility] (Lab) [address] [facility] [address], [place], [address], 01/06/2021 23:19:22 12/31/19 21 12/30/2020 CMP(C OMPRE HENSI VE METAB OLIC PANEL ) egfrcr (CKD-epi 2020) >90 mL/mi n/1.7 3_m2 >=60 Not Available [facility] (Lab) [address] [facility] [address], [place], [address], 01/06/2021 23:19:22 12/31/19 21 12/30/2020 VITAM IN D, 25-OH (TOTA L D2/D3 ) vitamin D, 25-hydroxy, total 20.8 NG/mL 30-80 low NOTE: Defic iency : <20 ng/mL Insuf ficie ncy: 20-29 ng/mL Optim um Level : 30-80 ng/mL Possi ble Toxic ity: >80 ng/mL Most patie nts with toxic ity have level s >150 ng/mL . Not Available [facility] (Lab) [address] [facility] [address], [place], [address], 01/06/2021 23:19:23 12/31/19 21 12/30/2020 PROGE STERO NE progesterone 6.73 NG/mL This assay was perfo rmed using [employer] ratio n reage nts and test kits. Value s obtai bertha with other assay metho ds or kits canno t be used inter [facility] . Femal e Proge stero ne Range s: Folli cular phase 0.06- 0.89 ng/mL Ovula tion phase 0.12- 12.00 ng/mL Lutea l phase 1.83- 23.90 ng/mL Postm enopa usal< 0.05- 0.13 ng/mL Healt hy Pregn ant Women 1st Trime ster1 1.0-4 4.30 2nd Trime ster2 5.40- 83.30 3rd Trime ster5 8.70- 214.0 0 Not Available [facility] (Lab) [address] [place], [address], 01/06/2021 23:19:23 12/31/19 21 12/30/2020 PROLA CTIN prolactin, total 18.90 NG/mL 4.79-2 3.30 This assay was perfo rmed using [employer] ratio n reage nts and test kits. Value s obtai bertha with other assay metho ds or kits canno t be used inter [facility] . Not Available [facility] (Lab) [address] [place], [address], 01/06/2021 23:19:23 12/31/19 21 12/30/2020 FSH, LH, ESTRA DIOL estradiol 103.0 pg/mL This assay was perfo rmed using [employer] ratio n reage nts and test kits. Value s obtai bertha with other assay metho ds or kits canno t be used inter [facility] . Femal e Estra diol Range s: Folli cular phase 12.4- 233 pg/mL Ovula tion phase 41.0- 398 pg/mL Lutea l phase 22.3- 341 pg/mL Postm enopa usal< 5-138 pg/mL Healt hy Pregn ant Women 1st Trime ster1 54-32 43 pg/mL 2nd Trime ster1 561-2 1280 pg/mL 3rd Trime ster8 525-> 36340 pg/mL Not Available [facility] (Lab) [address] [place], [address], 01/06/2021 23:19:24 12/31/19 21 12/30/2020 FSH, LH, ESTRA DIOL FSH 3.9 mIU/m L This assay was perfo rmed using [employer] ratio n reage nts and test kits. Value s obtai bertha with other assay metho ds or kits canno t be used inter [facility] . Femal es Folli cular : 3.5-1 2.5 mIU/m L Ovula tion: 4.7-2 1.5 mIU/m L Lutea l: 1.7-7 .7 mIU/m L Postm enopa use: 25.8- 134.8 mIU/m L Not Available [facility] (Lab) [address] [address], [place], [address], 01/06/2021 23:19:24 12/31/19 21 12/30/2020 FSH, LH, ESTRA DIOL LH 16.2 mIU/m L This assay was perfo rmed using [employer] n reage nts and test kits. Value s obtai bertha with other assay metho ds or kits canno t be used inter [facility] . Femal es Mid-F ollic ular: 2.4-1 2.6 mIU/m L Mid-C ycle: 14.0- 95.6 mIU/m L Mid-L uteal : 1.0-1 1.4 mIU/m L Postm enopa use: 7.7-5 8.5 mIU/m L Not Available [facility] (Lab) [address] [facility] [address], [place], [address], 01/06/2021 23:19:24 12/31/1912/30/2020 HEMOG LOBIN A1C hemoglobin A1C 5.7 % 0-5.6 high The Ameri can [employer] i[employer] n recom mends that a prima ry goal of therjames hazel be a HBA1C of < 7% and that physi cians victor m d reeva luate the treat ment regim en in patie nts with HBA1C value s consi stent ly > 8%. <5.7% Keisha l 5.7 - 6.4% Incre ased risk for diabe raman >=6.5 % Diagn ostic of diabe raman <7.0% Goal of thera py >8.0% Actio n sugge sted Not Available [facility] (Lab) [address] [facility] [address], [place], [address], 01/06/2021 23:19:24 12/31/19 21 12/30/2020 17-OH PROGE STERO NE 17-hydroxypr ogesterone, lc/MS/MS 143 NG/dL Adult Femal e Refer ence Range s for 17-Hy droxy proge stero ne: Pre-M enopa usal Mid Folli cular : 23-10 2 ng/dL Pre-M enopa usal Surge : 67-34 9 ng/dL Pre-M enopa usal Mid Lutea l: 139-4 31 ng/dL Postm enopa usal Phase : < or = 45 ng/dL Pregn shayy: First Trime ster: 78-45 7 ng/dL Secon d Trime ster: 90-35 7 ng/dL Third Trime ster: 144-5 78 ng/dL This test was devel oped and its manisha tical perfo rmanc e peter cteri stics have been deter mined by [facility] . It has not been clear ed or appro erin by FDA. This assay has been valid ated pursu ant to the CLIA regul ation s and is used for clini andrew purpo ses. Perfo rming Organ izati on Infor matio n: Site ID: [id number] Name: [facility]Edwin zulema [facility]-S higinio napoles , Addre ss: [id number] [facility] [place] [address] Direc tor: Mariama love MD,Ph D,LEATHA Not Available [facility] (Lab) [address], [place], [address], 01/06/2021 23:19:25 12/31/19 21 12/30/2020 TESTO STERO NE, FREE( DIALY SIS) AND TOTAL (LC/M S/MS) testosterone , total 27 NG/dL 2-45 For addit ional krupa villalobosjenny kerr e refer to http: //halle pollackque stdia gnost ics.c om/fa q/Tot alTes jaxon Malik CMSMS (This link is being provi ded for infoubaldo dewey nal/ educa jenny l purpo ses only. ) This test was devel oped and its manisha tical perfo rmanc e peter cteri stics have been deter mined by [facility]. It has not been clear ed or appro erin by the FDA. This assay has been valid ated pursu ant to the CLIA regul ation s and is used for clini andrew purpo ses. Not Available [facility] (Lab) [address], [place], [address], 01/06/2021 23:19:25 12/31/19 21 12/30/2020 TESTO STERO NE, FREE( DIALY SIS) AND TOTAL (LC/M S/MS) testosterone , free 4.2 pg/mL 0.1-6. 4 This test was devel oped and its manisha tical perfo rmanc e peter cteri stics have been deter mined by [facility]. It has not been clear ed or appro erin by the FDA. This assay has been valid ated pursu ant to the CLIA regul ation s and is used for clini andrew purpo ses. Perfo rming Organ izati on Krupa farias: Site ID: [id number] Name: [facility] zulema [place] Addre ss: [id number] [place] [address] Direc tor: Piter ny M.D. Not Available [facility] (Lab) [address] [place], [address], 01/06/2021 23:19:25 04/24/19 22 04/24/2021 IMAGE GUIDE D PAP, REFLE X HPV IF ASCUS ONLY image guided Pap, reflex HPV ASCUS only SEE RESULT S BELOW CASE REPOR T: Cytol ogy Gynec ologi andrew Repor t Case: [id number] Autho sahra eldridge Provi sly: Zoey chavarria, LAKEISHA Sandoval cted: 04/24 1615 Order ing Locat ion: [place] Patho log[facility] Recei erin: 04/25 0003 First Scree n: Reinier Sahu ed, CT Speci men: Scree sowmya Pap - Image d, Cervi x STATE MENT OF ADEQU ACY: Satis facto ry for evalu ation Trans forma tion zone compo nent prese nt FINAL DIAGN OSIS: Negat antione for Intra epith elial Lesio n or Isaac coon (NIL) . Elect kenji zamora phyllis d by Reinier Sahu ed, CT on 022 at 9:53 PM ----- ----- ----- ----- ----- ----- ----- ----- ----- ----- ----- ----- ----- ----- ----- ----- ----- ---- COMME NT: Note: This speci men was revie wed by a Cytot echno logis t and/o r Patho logis t (as indic ated in this repor t) after evalu ation using the Thinp rep Imagi ng Syste m. CLINI ANDREW INFOR MATIO N: Menst rual Statu s: LMP (if appli cable ): Clini andrew Histo ry/Pr eviou s Pap: Type of Neopl teodora (if appli cable ): Signi fican t Clini andrew Findi ngs: Other Histo ry: Hormo jessica (if appli cable ): PAP EDUCA JENNY L NOTE: The Pap Test is a scree sowmya test with an inher ent false negat antione rate. Liqui d-bas ed sampl ing may decre ase, but will not elimi julianne, false negat antione resul ts. A negat antione resul t does not precl ude the prese nce and/o r devel opmen t of disea se, since the prese nce of abnor mal cells in the sampl e depen ds on the locat ion of the lesio n and sampl ing techn ique. Lindsey nued regul ar scree sowmya is the best metho d of cance r preve ntion . If repor randy cytol ogic findi ng do not corre late with physi andrew and/o r histo rical findi ngs, furth er inves tigat ion is recom ivanna d, as clini malissa warrjames nted. Not Available [facility] (Lab) [address], [place], [address], 04/30/2021 22:56:23 12/31/19 21 12/30/2020 US, pelcielo s No observ ation record ed. [email or web address] [place] [address] [address], [place], [address], 12/30/2020 11:23:35 12/31/19 21 12/30/2020 US, trans ulices al No observ ation record ed. [email or web address] [place] [address], [place], [address], 12/30/2020 11:23:25 12/31/19 21 12/30/2020 US, pelvi s No observ ation record ed. [email or web address] [address], [place], [address], 12/30/2020 21:42:35 Result Notes None recorded. Problems Name Problem SNOMED Code Status Onset Date Resolution Date Notes Provider Name and Address Organization Details Recorded Time Intraute rine contrace ptive device in situ 640429738 Completed 202001/08/2021 Ria galan [place] - [facility] 16:13:07 Body mass index 40+ - severely obese [id number] Completed 202004/24/2021 bmi 58 Nazia galan [facility] 2 16:39:11 Insertio n of intraute rine contrace ptive device Completed 201403/21/2020 INSERTIO N OF IUD;Cresencio rded Elsewher e: No Locat ion: [facility] S ource: EHR Civil Clerk edwin: N Practi ce ID: [id number] Elijah lable Time: 09:30:00 AM Trista Marrero MD [address], [place], [address], [facility] 1 10:43:17 Primigra jocelyn [id number] Completed 201403/21/2020 Supervis ion of normal first pregnanc y;Record ed Elsewher e: No Locat ion: [facility] S ource: EHR Civil Clerk edwin: N Practi ce ID: [id number] Elijah lable Time: 11:00:00 AM Trista Marrero MD [address], [place], [address], [facility] 1 10:43:30 Educatio n Completed 201103/21/2020 Other general counseli ng and advice on contrace ptive manageme nt;Recor ded Elsewher e: No Locat ion: [facility] S ource: EHR Civil Clerk edwin: N Practi ce ID: [id number] Elijah lable Time: 10:30:00 AM Trista Marrero MD [address], [place], [address], [facility] 1 10:43:11 Depressi ve disorder [id number] Completed 201404/24/2021 Depressi on;Recor ded Elsewher e: No Locat ion: [facility] S ource: EHR Civil Clerk edwin: N Practi ce ID: [id number] Elijah lable Time: 06:00:00 PM Nazia galan, [facility] 2 16:39:14 Contrace ptive sheath status [id number] Completed 201503/21/2020 Encounte r for routine checking of IUD;Cresencio rded Elsewher e: No Locat ion: [facility] S ource: EHR Civil Clerk edwin: N Ciarati ce ID: [id number] Elijah lable Time: 02:00:00 PM Trista Marrero MD [address], [place], [address], [facility] 10:42:50 Ultrason ography Completed 201403/21/2020 Antenata l screenin g for malforma tion using ultrason ics;Cresencio rded Elsewher e: No Locat ion: [facility] S ource: EHR Civil Clerk edwin: N Practi ce ID: [id number] Elijah lable Time: 10:30:00 AM Trista Marrero MD [address], [place], [address], [facility] 10:43:56 Antenata l screenin g Completed 201403/21/2020 Antenata l screenin g for malforma tion using ultrason ics;Cresencio rded Elsewher e: No Locat ion: [facility] S ource: EHR Civil Clerk edwin: N Ciarati ce ID: [id number] Elijah lable Time: 10:30:00 AM Trista Marrero MD [address], [place], [address], [facility] 10:42:43 Congenit al malforma tion [id number] Completed 201403/21/2020 Antenata l screenin g for malforma tion using ultrason ics;Cresencio rded Elsewher e: No Locat ion: [facility] S ource: EHR Civil Clerk edwin: N Practi ce ID: 0001 Elijah lable Time: 10:30:00 AM Trista Marrero MD [address], [place], [address], [facility] 1 10:42:47 Adult health examinat ion Completed 201403/21/2020 ROUTINE MEDICAL EXAM;Rec orded Elsewher e: No Locat ion: [facility] S ource: EHR Civil Clerk edwin: N Ciarati ce ID: [id number] Elijah lable Time: 05:45:00 PM Trista Marrero MD [address], [place], [address], [facility] 1 10:42:41 Venereal disease screenin g Completed 201401/08/2021 Screenin g examinat ion for venereal disease; Recorded Elsewher e: No Locat ion: [facility] S ource: EHR Civil Clerk edwin: N Ciarati ce ID: [id number] Elijah lable Time: 05:45:00 PM [facility] 16:13:09 Pregnanc y test negative [id number] Completed 201403/21/2020 Encounte r for pregnanc y test, result negative ;Recorde d Elsewher e: No Locat ion: [facility] S ource: EHR Civil Clerk edwin: N Practi ce ID: [id number] Elijah lable Time: 01:30:00 PM Trista Marrero MD [address], [place], [address], [facility] 1 10:43:25 Removal of intraute rine device Completed 201603/21/2020 Encounte r for removal of intraute rine contrace ptive device;R ecorded Elsewher e: No Locat ion: [facility] S ource: EHR Civil Clerk edwin: N Practi ce ID: [id number] Elijah lable Time: 01:15:00 PM Trista Marrero MD [address], [place], [address], [facility] 1 10:43:32 Surveill ance of contrace ption Completed 201603/21/2020 Encounte r for surveill ance of contrace ptives, unspecif ied;Cresencio rded Elsewher e: No Locat ion: [facility] S ource: EHR Civil Clerk edwin: N Walter ce ID: 0001 Elijah lable Time: 10:30:00 AM Trista Marrero MD [address], [place], [address], [facility] 1 10:43:47 Transien t hyperten doolres of pregnanc y - not delivere d [id number] Completed 201403/21/2020 Gestatio nal hyperten dolores, antepart um;Recor ded Elsewher e: No Locat ion: [facility] S ource: EHR Civil Clerk edwin: Tiffanie Watson ce ID: 0001 Elijah lable Time: 03:00:00 PM Trista Marrero MD [address], [place], [address], [facility] 1 10:43:53 Maternal care for diminish ed movement s Completed 201403/21/2020 Decrease d movement s, affectin g manageme nt of mother, antepart um conditio n or complica tion;Rec orded Elsewher e: No Locat ion: [facility] S ource: EHR Civil Clerk edwin: Tiffanie Watson ce ID: 0001 Elijah lable Time: 04:00:00 PM Trista Marrero MD [address], [place], [address], [facility] 1 10:43:21 Screenin g for malignan t neoplasm of cervix Completed 201403/21/2020 Screenin g for malignan t neoplasm s of the cervix;R ecorded Elsewher e: No Locat ion: [facility] S ource: EHR Civil Clerk edwin: Tiffanie Watson ce ID: 0001 Elijah lable Time: 05:45:00 PM Trista Marrero MD [address], [place], [address], [facility] 1 10:43:35 Atypical squamous cells of undeterm ined signific ance on cervical Papanico laou smear [id number] Completed 201404/24/2021 Papanico laou smear of cervix with atypical squamous cells of undeterm ined signific ance (ASC-US) ;Recorde d Elsewher e: No [facility]ce: EHR Civil Clerk edwin: N Walter ce ID: 0001 Elijah lable Time: 05:45:00 PM Nazia galan, [facility] 2 16:39:08 Pregnanc y test positive [id number] Completed 201403/21/2020 Pregnanc y test positive ;Recorde d Elsewher e: No Locat ion: [facility] S ource: EHR Civil Clerk edwin: Tiffanie Watson ce ID: 0001 Elijah lable Time: 06:00:00 PM Trista Marrero MD [address], [place], [address], [facility] 1 10:43:28 Abnormal uterine bleeding [id number] 9100 Completed 201603/21/2020 Other specifie d abnormal uterine and vaginal bleeding ;Recorde d Elsewher e: No Locat ion: [facility] S ource: EHR Civil Clerk edwin: Tiffanie Watson ce ID: 0001 Elijah lable Time: 04:30:00 PM Trista Marrero MD [address], [place], [address], [facility] 1 10:42:37 anatomy study Completed 201403/21/2020 [facility] SURVEY;R ecorded Elsewher e: No [facility] S ource: EHR Civil Clerk edwin: Tiffanie Watson ce ID: 0001 Elijah lable Time: 01:00:00 PM Trista Marrero MD [address], [place], [address], [facility] 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 1 10:43:39 Subcutan eous contrace ptive implant present [id number] Completed 201103/21/2020 Surveill ance of implanta ble subderma l contrace ptive;Re corded Elsewher e: No Locat ion: [facility] S ource: EHR Civil Clerk edwin: N Walter ce ID: 0001 Elijah lable Time: 03:30:00 PM Trista Marrero MD [address], [place], [address], [facility] 1 10:43:45 Educatio n Completed 201503/21/2020 Encounte r for other general counseli ng and advice on contrace ption;Re corded Elsewher e: No Locat ion: [facility] S ource: EHR Civil Clerk edwin: N Walter ce ID: 0001 Elijah lable Time: 03:30:00 PM Trista Marrero MD [address], [place], [address], [facility] 1 10:42:58 Speciali marita medical examinat ion Completed 201403/21/2020 Other specifie d chlamydi al diseases ;Practic e ID: 0001 Trista Marrero MD [address], [place], [address], [facility] 1 10:43:42 Vaginiti s and vulvovag initis Completed 201403/21/2020 Vaginiti s and vulvovag initis, unspecif ied;Prac hossein ID: 0001 Trista Marrero MD [address], [place], [address], [facility] 10:43:58 Increase d frequenc y of urinatio n [id number] Completed 201403/21/2020 Urinary frequenc y;Practi ce ID: 0001 Trista Marrero MD [address], [place], [address], [facility] 10:44:19 Delivery normal [id number] Completed 201403/21/2020 NORMAL DELIVERY ;Practic e ID: 0001 Trista Marrero MD [address], [place], [address], [facility] 10:42:52 Single live [id number] Completed 201403/21/2020 DELIVER- SINGLE LIVEBORN ;Practic e ID: 0001 Trista Marrero MD [address], [place], [address], [facility] 10:43:37 Transien t hyperten dolores of pregnanc y - delivere d with postnata l complica tion [id number] Completed 201403/21/2020 Postpart um transien t hyperten dolores;Pra ctice ID: 0001 Trista Marrero MD [address], [place], [address], [facility] 10:43:51 Acute vaginiti s [id number] Completed 201603/21/2020 Acute vaginiti s;Practi ce ID: 0001 Trista Marrero MD [address], [place], [address], [facility] 10:42:39 Problem Notes None recorded. Procedures Surgical History Date Name Laterality Status Provider Name and Address Organization Details Recorded Time 04/24/19 22 Date of Last Pap Smear completed Nazia [facility] 04/24/2021 16:39:46 12/30/19 21 sleep studies completed [facility] 04/24/2021 17:52:48 01/29/20 20 procedure on upper arm completed Ria Barroso [facility] 12/26/2020 11:10:15 02/28/19 19 Date of Last Colonoscopy completed [facility] 04/24/2021 17:50:24 02/28/19 19 procedure on salivary gland completed Nazia [facility] 04/24/2021 17:52:26 02/28/19 19 Colonoscopy completed [facility] 04/24/2021 17:52:12 02/28/19 11 Colonoscopy completed [facility] 04/24/2021 17:52:03 02/28/18 98 Tonsillectomy completed [facility] 04/24/2021 17:52:21 Imaging Results Imaging Date Name Status LastModified by Organization Details LastModified Time 12/30/2020 US, pelvis completed rosalva [place] [address], [place], [address], 12/30/2020 11:23:35 12/30/2020 US, transvaginal completed rosalva enamorado [address], [place], [address], 12/30/2020 11:23:25 12/30/2020 US, pelvis completed [email or web address] [email or web address], [place], [address], 12/30/2020 21:42:35 Procedure Notes None recorded. Medical Equipment None Reported. Allergies Allergen ID Allergen Name Allergen Category Reaction Reaction Severity Criticality Documentation Date Start Date Code Code System Note Provider Name and Address Organization Details Recorded Time 277 Product containin g penicilli n (product) medicatio n Not available Not available Not available 01/16/2020 28607 8001 SNOMED Nithya Laguerre [facility] [place] - [facility] 0 16:01:29 Medications Name Sig Start Date Stop Date Status Note LastModified by Organization Details LastModified Time Mirena 21 mcg/24 hr (up to 8 years) 52 mg intrauter ine device 2014 active Prescrib ed Elsewher e: Yes Loca tion: [facility] M odify By: [email or web address] trick En counter DateTime : 02/05/20 15 09:30:00 AM Not Available Not Available Not Available clindamyc in HCl 300 mg capsule TK 1 C PO Q 8 H FOR 7 DAYS 03/21 completed Not Available Not Available Not Available trazodone 50 mg tablet TAKE 1 TABLET BY MOUTH AT BEDTIME NEEDED 04/24 completed Not Available Not Available Not Available azithromy elenita 250 mg tablet TK 2 TS PO ON DAY 1 THEN TK 1 T PO QD DAYS 2-5 08/23 completed Not Available Not Available Not Available nystatin 100,000 unit/gram topical ointment APPLY TOPICALL Y TO THE AFFECTED AREA TWICE DAILY 08/23 completed Not Available Not Available Not Available fluconazo le 150 mg tablet TAKE 1 TABLET BY MOUTH EVERY 72 HOURS FOR 9 DAYS 12/26 completed Not Available Not Available Not Available benzonata te 200 mg capsule TAKE 1 CAPSULE BY MOUTH THREE TIMES DAILY NEEDED FOR COUGH 08/23 completed Not Available Not Available Not Available metoprolo l succinate ER 50 mg tablet,ex tended release 24 hr TAKE 1 TABLET BY MOUTH AT BEDTIME 08/23 completed Not Available Not Available Not Available citalopra m 10 mg tablet TAKE 1 TABLET BY MOUTH DAILY 04/24 completed Not Available Not Available Not Available clarithro mycin 500 mg tablet TK 1 T PO Q 12 H 03/21 completed Not Available Not Available Not Available Nystop 100,000 unit/gram topical powder APPLY TO THE AFFECTED AREA THREE TIMES DAILY 12/26 completed Not Available Not Available Not Available dextroamp hetamine- amphetami ne 10 mg tablet TAKE 1 TABLET BY MOUTH EVERY DAY IN THE AFTERNOO N 08/23 completed Not Available Not Available Not Available olanzapin e 10 mg tablet TAKE 1 TABLET BY MOUTH AT BEDTIME 08/23 completed Not Available Not Available Not Available lithium carbonate 150 mg capsule TAKE 1 CAPSULE BY MOUTH TWICE DAILY 04/24 completed Not Available Not Available Not Available metronida zole 500 mg tablet TAKE 1 TABLET BY MOUTH EVERY 12 HOURS 08/23 completed Not Available Not Available Not Available sulfameth oxazole 800 mg-trimet hoprim 160 mg tablet TAKE 1 TABLET BY MOUTH EVERY 12 HOURS UNTIL ALL TAKEN 08/23 completed Not Available Not Available Not Available nystatin- triamcino lone 100,000 unit/gram -0.1 % topical ointment APPLY TO THE AFFECTED AREA(S) BY TOPICAL ROUTE 2 TIMES PER DAY 08/23 completed Not Available Not Available Not Available Zoloft 50 mg tablet take 1 tablet by oral route every day 11/22 completed Prescrib isrrael Ann e: No Locat ion: [facility] odify By: [email or web address] trick En counter DateTime : 04/08/19 15 06:00:00 PM Not Available Not Available Not Available oxycodone -acetamin ophen 10 mg-325 mg tablet TAKE 1 TABLET BY MOUTH EVERY 8 HOURS NEEDED 12/26 completed Not Available Not Available Not Available trazodone 100 mg tablet TAKE 1 TO 2 TABLETS BY MOUTH AT BEDTIME NEEDED 08/23 completed Not Available Not Available Not Available lithium carbonate 300 mg capsule TAKE 1 CAPSULE BY MOUTH TWICE DAILY 08/23 completed Not Available Not Available Not Available benzonata te 100 mg capsule TAKE 1 CAPSULE BY MOUTH THREE TIMES DAILY NEEDED FOR COUGH 08/23 completed Not Available Not Available Not Available pantopraz ole 40 mg tablet,de layed release TAKE 1 TABLET BY MOUTH TWICE DAILY FOR 14 DAYS 12/26 completed Not Available Not Available Not Available triamcino lone acetonide 0.1 % topical ointment APPLY THIN LAYER TOPICALL Y TO THE AFFECTED AREA TWICE DAILY 08/23 completed Not Available Not Available Not Available nystatin 100,000 unit/gram topical cream apply by topical route 2 times every day to the affected area(s) 11/22 completed Prescrib ed Elsewher e: No Locat ion: [facility] odify By: [email or web address] trick En counter DateTime : 10/26/19 03:30:00 PM Not Available Not Available Not Available metoprolo l tartrate 50 mg tablet TAKE 1 TABLET BY MOUTH EVERY 12 HOURS 12/26 completed Not Available Not Available Not Available codeine 10 mg-guaife nesin 100 mg/5 mL oral liquid TAKE 5 ML BY MOUTH EVERY DAY AT BEDTIME NEEDED FOR COUGH 08/23 completed Not Available Not Available Not Available mupirocin 2 % topical ointment ÁNGELA SML AMT EXT AA TID FOR 7 DAYS 12/26 completed Not Available Not Available Not Available metoprolo l succinate ER 25 mg tablet,ex tended release 24 hr TAKE 1 TABLET BY MOUTH DAILY AT BEDTIME 08/23 completed Not Available Not Available Not Available ergocalci ferol (vitamin D2) 1,250 mcg (50,000 unit) capsule TAKE 1 CAPSULE BY MOUTH EVERY WEEK 04/24 completed Not Available Not Available Not Available methylpre dnisolone 4 mg tablets in a dose pack FOLLOW PACKAGE DIRECTIO NS 08/23 completed Not Available Not Available Not Available albuterol sulfate HFA 90 mcg/actua tion aerosol inhaler INHALE 2 PUFFS BY MOUTH EVERY 4 HOURS NEEDED FOR SHORTNES S OF BREATH OR WHEEZING 08/23 completed Not Available Not Available Not Available dextroamp hetamine- amphetami ne ER 30 mg 24hr capsule,e xtend release TAKE 1 CAPSULE BY MOUTH EVERY MORNING 08/23 completed Not Available Not Available Not Available ketoconaz ole 2 % topical cream apply by topical route every day to the affected area(s) 03/21 completed Prescrib ed Elsewher e: No Locat ion: [facility] odify By: [email or web address] tz Encou nter DateTime : 06/01/19 17 03:15:00 PM Not Available Not Available Not Available Zoloft 25 mg tablet take 1 tablet by oral route every day 04/08 completed Prescrib ed Elsewher e: No Locat ion: [facility] odify By: didier tucker DateTime : 03/29/19 15 01:19:09 PM Not Available Not Available Not Available Fioricet 50 mg-325 mg-40 mg tablet take 1 - 2 tablet by oral route every 4 hours as needed not to exceed 6 tablets per 24hrs 11/22 completed Prescrib ed Elsewher e: No Locat ion: [facility] odify By: [email or web address] trick En counter DateTime : 05/16/19 15 11:00:00 AM Not Available Not Available Not Available fluticaso ne propionat e 50 mcg/actua tion nasal spray,deidra pension SHAKE LIQUID AND USE 2 SPRAYS IN EACH NOSTRIL DAILY 08/23 completed Not Available Not Available Not Available lamotrigi ne 100 mg tablet TAKE 1 TABLET BY MOUTH EVERY DAY FOR 30 DAYS 08/23 completed Not Available Not Available Not Available naproxen 500 mg tablet TAKE 1 TABLET BY MOUTH TWICE DAILY NEEDED FOR PAIN 08/23 completed Not Available Not Available Not Available clindamyc in phosphate 1 % topical solution APPLY 2 DROPS TO PROCEDUR E SITE DAILY 04/24 completed Not Available Not Available Not Available Sprintec (28) 0.25 mg-0.035 mg tablet take 1 tablet by oral route every day 04/08 completed Prescrib ed Elsewher e: No Locat ion: [facility] odify By: [email or web address] trick En counter DateTime : 12/01/19 12 10:30:00 AM Not Available Not Available Not Available aripipraz ole 10 mg tablet 08/23 completed Not Available Not Available Not Available aripipraz ole 5 mg tablet TAKE 1 TABLET BY MOUTH EVERY DAY 04/24 completed Not Available Not Available Not Available bupropion HCl XL 150 mg 24 hr tablet, extended release TAKE 1 TABLET BY MOUTH EVERY MORNING 04/24 completed Not Available Not Available Not Available nitrofura ntoin monohydra te/macroc rystals 100 mg capsule TAKE 1 CAPSULE BY MOUTH EVERY 12 HOURS FOR 7 DAYS 04/24 completed Not Available Not Available Not Available eszopiclo ne 2 mg tablet TAKE 1 TABLET WITH YOU TO [facility] FOR SLEEP STUDY 04/24 completed Not Available Not Available Not Available Adderall active Not Available Not Avai lable Not Available YARD BRAKEMAN-PNV-DH A 28 mg iron-1 mg-200 mg capsule take 1 capsule by oral route every day 07/19 completed Prescrib ed Elsewher e: No [facility] od[facility] By: angeline tucker DateTime : 07/06/19 15 03:16:42 PM Not Available Not Available Not Available Fluzone Quad (PF) 60 mcg (15 mcg x 4)/0.5 mL IM syringe ADM 0.5ML IM UTD 08/23 completed Not Available Not Available Not Available Vitals Date Recorded Body height Body mass index (BMI) Body weight Systolic blood pressure Diastolic blood pressure Systolic blood pressure Diastolic blood pressure Provider Name and Address Organization Details Last Updated DateTime 175.26 cm 56 kg/m2 067338. 51 g 161 mm[Hg] 116 mm[Hg] 145 mm[Hg] 85 mm[Hg] [facility] 10:01:18 Date Recorded Body height Body mass index (BMI) Body weight Systolic blood pressure Diastolic blood pressure Provider Name and Address Organization Details Last Updated DateTime 01/08/2021 175.26 cm 56.4 kg/m2 329714.2 9 g 154 mm[Hg] 110 mm[Hg] [facility] 16:13:00 Date Recorded Body height Body mass index (BMI) Body weight Systolic blood pressure Diastolic blood pressure Systolic blood pressure Diastolic blood pressure Provider Name and Address Organization Details Last Updated DateTime 2 175.26 cm 57.3 kg/m2 545621. 84 g 151 mm[Hg] 109 mm[Hg] 140 mm[Hg] 90 mm[Hg] Nazia Buenrostro [facility] 2 16:55:21 Date Recorded Body height Body mass index (BMI) Body weight Systolic blood pressure Diastolic blood pressure Provider Name and Address Organization Details Last Updated DateTime 08/24/2023 175.26 cm 63.2 kg/m2 968187.5 3 g 148 mm[Hg] 88 mm[Hg] Nancydaryl Lipscomb [facility] 4 11:00:21 Social History Question Answer Notes LastModified by Organizat ion Details LastModified Time Tobacco Smoking Status Never Smoker Nithya Shade galan, [facility] 01/16/2020 16:03:34 What Is Your Level Of Alcohol Consumption? None Information not available 03/21/2020 Are You Blind Or Do You Have Difficulty Seeing? No [email or web address] Information n ot available 04/24/2021 What Is Your Level Of Caffeine Consumption? Occasional Information not available 03/21/2020 In The 14 Days Before Symptom Onset, Have You Had Close Contact With A Laboratory-confirm ed COVID-19 While That Case Was Ill? No [email or web address] Information n ot available 04/24/2021 In The 14 Days Before Symptom Onset, Have You Had Close Contact With A Person Who Is Under Investigation For COVID-19 While That Person Was Ill? No [email or web address] Information not available 04/24/2021 Have You Been To An Area Known To Be High Risk For COVID-19? No [email or web address] Information not available 04/24/2021 Are You Deaf Or Do You Have Serious Difficulty Hearing? No [email or web address] Information not available 04/24/2021 What Type Of Diet Are You Following? REGULAR [email or web address] Information n ot available 04/24/2021 Do You Use Your Seat Belt Or Car Seat Routinely? Yes [email or web address] Information not available 04/24/2021 Do You Have Smoke And Carbon Monoxide Detectors In Your Home? Yes [email or web address] Information not available 04/24/2021 Do You Feel Stressed (tense, Restless, Nervous, Or Anxious, Or Unable To Sleep At Night)? [id number] Information not available 04/24/2021 Do You Use Any Illicit Or Recreational Drugs? No Information not available 03/21/2020 Do You Use Sunscreen Routinely? Yes Information not available 04/24/2021 Has Tobacco Cessation Counseling Been Provided? No Information not available 03/21/2020 Do You Or Have You Ever Used Any Other Forms Of Tobacco Or Nicotine? No [email or web address] Information not available 04/24/2021 Sex: Unknown Functional Status Question Answer Note LastModified by Organizat ion Details LastModified Time Do you have difficulty walking or climbing stairs? No [email or web address] Information not available 04/24/2021 Are you able to walk? YESWOREST [email or web address] Information not available 04/24/2021 Are you able to care for yourself? Yes Information not available 04/24/2021 Do you have difficulty dressing or bathing? No [email or web address] Information not available 04/24/2021 What is your exercise level? Occasional [email or web address] Information not available 04/24/2021 Mental Status None recorded. Family History Relationship Description Onset Age of this Age Resolved Age Notes LastModified by Organization Details LastModified Time Sister Asthma [email or web address] Not available 16:02:14 Sister Cyst of ovary [email or web address] Not available 2019 16:03:03 Sister Psychotic disorder [email or web address] Not available 2019 16:03:31 Maternal Grandmother Carcinoma in situ of breast 51 Not available 04/24 17:41:18 Maternal Grandmother Psychotic disorder [email or web address] Not available 2019 16:03:31 Maternal Grandmother Malignant tumor of colon 60 [employer] A [email or web address] Not available 04/24/2021 17:42:26 Maternal Grandfather Diabetes mellitus [email or web address] Not available 2019 16:02:32 Maternal Grandfather Hypercholest erolemia [email or web address] Not available 2019 16:02:43 Maternal Grandfather Hypertensive disorder [email or web address] Not available 2019 16:02:52 Maternal Grandfather Psychotic disorder [email or web address] Not available 2019 16:03:31 Maternal Grandfather Blood coagulation disorder [email or web address] Not available 04/24 17:51:39 Mother Psychotic disorder [email or web address] Not available 2019 16:03:31 Father Psychotic disorder [email or web address] Not available 2019 16:03:31 Maternal Uncle Psychotic disorder [email or web address] Not available 2019 16:03:31 Maternal Uncle Psychotic disorder [email or web address] Not available 04/24 17:51:02 Maternal Aunt Psychotic disorder [email or web address] Not available 2019 16:03:31 Paternal Grandmother Malignant tumor of ovary 54 [employer] A [email or web address] Not available 04/24/2021 17:41:55 Paternal Aunt Malignant tumor of pancreas 53 [email or web address] Not available 04/24 17:42:52 Paternal Aunt Psychotic disorder [email or web address] Not available 04/24 17:51:07 Brother Psychotic disorder [email or web address] Not available 04/24 17:50:57 Brother Bipolar disorder [email or web address] Not available 04/24 17:51:28 Paternal Grandfather Psychotic disorder [email or web address] Not available 04/24 17:51:13 Medical History Condition Response Other N Blood Transfusion N Dermatologic Disorders N Gestational Diabetes N Anxiety Disorder Y Autoimmune disease N Arthritis N Polyps N Infertility N Acid Reflux (GERD) N Cancer N Varicosities N Stroke N Neurologic/Epilepsy Y Fibromyalgia N Headaches N Kidney Disease N Heart Problems N Kidney or Bladder Problems N Eating Disorder N Art (IVF or FET) N Hepatitis/Liver Disease N No Past Medical History N Urinary Tract Infection N Asthma N Trauma/Violence N Thrombophilias N Allergies (Food, seasonal, environmental ) N Breast Cancer N Drug/Latex Allergies/Reactions Y Lung Disease N Defects or Inherited Disease N Breast Problem N Hematologic disorders N Anesthesia Complications N History of STI N Deep Vein Thrombosis N Polycystic ovary syndrome N History of abnormal pap Y Endometriosis N High Cholesterol N Thyroid Problems N GI Problems N Anemia N Psychiatric Illness Y Ovarian Cancer N Diabetes N Pulmonary (TB, Asthma) N Eczema N Abuse/Domestic Violence N Depression/ depression Y Heart Disease N Pre-Eclampsia N Hypertension Y Osteoporosis N Gynecological History Statement/Question Response Abnormal Pap Y Date of Last Colonoscopy 02/28/2018 Date of Last Mammogram Most Recent Bone Density Date of LMP 07/08/2023 STIs/STDs N Date of Last Pap Smear 04/24/2021 Current Control Method IUD LMP Approximate Obstetrics History GPAL:G 1 P 1 0 0 1 Type Value Full Term 1 Living 1 Total 1 Past Encounters Encounter ID Performer Location Encounter Start Date Encounter Closed Date Diagnosis/Indication Diagnosis SNOMED-CT Code Diagnosis ICD10 Code Diagnosis Note [id number] [facility] [address] [address] 01/17/2020 14:09:45 01/17/2020 16:03:52 Gynecologic examination 91891280 Z01.419 Take Calcium with Vitamin D 1200mg daily if not receiving in daily diet. It is strongly advised to have an annual flu shot and up can obtain at most pharmacies . If you have not had a TDap shot in the last 10 years you should obtain one as well. Discussed with patient & provided with informatio n regarding Gardisil vaccine to prevent the 4 strains for HPV that cause cervical cancer if under age 26. Encourage safe sexual practices, to use condoms and limit partners if not already in a monogamous relationsh ip. Do monthly self breast exams. Have mammogram yearly or every other year depending on family history. BRCA testing is now available for patients with strong genetic history of female cancer. If interested contact the office. Engage in daily exercise of low impact aerobic exercise 45-60 minutes 4-5 times weekly. Avoid tobacco and illicit drugs as well as using moderation with alcohol intake less than 1-2 8 oz beverages daily. This lifestyle behavior pattern will lead to less health conditions and longer life span. If BMI greater than 25 weight watchers or dietary consult advised. Patient received above instructio ns, and questions have been answered. If you have any questions please call or respond to this email. Patient was made aware of the patient portal and may obtain a paper copy of today's plan if desired. -Pap and HPV done today -IUD strings not found on exam, patient encouraged to schedule pelvic US to determine placement -Will f/u with patient after US results Mass of left breast [id number] N63.20 - Left breast mass, 1cm at 9 o'clock -Order for breast US given to patient, encouraged to schedule -Will f/u with results Skin irritation [id number] L30.9 -Lesion on left side of upper chest -Sent patient ointment to pharmacy -Will f/u with patient if the lesion is not resolving, biopsy may be needed at that time Elevated blood-pressure reading without diagnosis of hypertension [id number] R03.0 Recommende d patient f/u with her PCP regarding BP reading. Asymptomat ic. She agrees & will schedule. [id number] Norma Garcia [place] [address],[place] [address] 02/19/2020 12:35:22 02/19/2020 13:04:52 Mechanical complication of intrauterine contraceptive device [id number] T83.39XA [id number] Steph Landrum [facility] [address],[place] [address] 02/19/2020 12:35:38 02/19/2020 13:45:41 Intrauterine device check [id number] Z30.431 TVUS shows IUD in place. No other issues. Placement date 11/08/2016 Time spent in visit is a total of 15 mins with at least 50% of visit consisting of counseling and review of plan of care. [id number] Trista Marrero MD [place] [address],[place] [address] 03/21/2020 10:17:15 03/21/2020 14:33:06 Candidiasis of skin 25608996 B37.2 Candidal vulvovaginitis 32386889 B37.3 Body mass index 40+ - severely obese 485301667 Z68.43 [id number] Carrillo Morales MD [place] [address],[place] [address] 12/26/2020 09:42:25 12/26/2020 14:38:15 Abnormal uterine bleeding [id number] 9100 N93.9 [id number] Savanah Ledesma [place] [address],[place] [address] 12/30/2020 10:33:22 12/30/2020 11:31:50 Abnormal uterine bleeding [id number] 9100 N93.9 [id number] Carrillo Morales MD [place] [address],[place] [address] 01/08/2021 15:57:07 01/08/2021 17:39:14 Irregular periods 01631300 N92.6 this patient is a 30 year old female who presents for follow-up on ultrasound and laboratory work. Patient's sex hormones were evaluated. She appears to be ovulating has normal sex hormones. She did have a mildly elevated hemoglobin A1c in the prediabeti c range/ low prediabeti c. She was informed of this. We discussed her ultrasound results. Her IUD is well placed. She appears to have some periods that are regular and irregular bleeding at other times. She has a Mirena IUD to protect her lining of uterus. We reviewed prevention of endometria l cancer. We spent over 15 minutes face-to-fa ce. We will follow up as needed. [id number] Zoey Samuels CNM [place] [address],[place] [address] 04/24/2021 16:14:45 04/24/2021 17:05:09 Gynecologic examination 67455246 Z01.419 Vaginitis 00661489 N76.0 [id number] LELAND Hamilton [place] [address],[facility] [address] 08/24/2023 10:39:38 08/24/2023 11:41:04 Gynecologic examination 38807367 Z01.419 WWEpap updateddec lined STI screenBC - Mirena IUD, will 11/08/2024 (can replace sooner if heavier/pa inful periods start occurring) routine labs UTD/PCPBP precaution s reviewed, encouraged PCP f/uRTC in 1 yr or sooner if needed It is strongly advised to have an annual flu shot and up can obtain at most pharmacies . If you have not had a TDap shot in the last 10 years you should obtain one as well. Discussed with patient & provided with informatio n regarding HPV vaccine if applicable . Encourage safe sexual practices, to use condoms and limit partners if not already in a monogamous relationsh ip. Do monthly self breast exams. BRCA testing is now available for patients with strong genetic history of female cancer. If interested contact the office. Engage in regular exercise. Avoid tobacco and illicit drugs. This lifestyle behavior pattern will lead to less health conditions and longer life span. If BMI greater than 25 dietary consult advised. Patient received above instructio ns, and questions have been answered. If you have any questions please call or respond to this email. Patient was made aware of the patient portal and may obtain a paper copy of today's plan if desired. Health Concerns Section Related Observation LastModified by Organization Detai ls LastModified Time None Recorded Concern Status LastModified by Organization Details LastModified Time None Recorded Advance Directives Directive None Recorded Payers Encounter Date Sequence Insurance Name Policy Number Policy Alexander Covered Member ID Alexander Member ID Guarantor Name 12/26/2020 1 [facility] [id number] Anita Luu [place] [id number] Anita [place] 12/30/2020 1 [facility] [id number] Anita [facility] [id number] Aniat [place] 01/08/2021 1 [facility] [id number] Anita [facility] [id number] [facility] 04/24/2021 1 [facility] [id number] Anita [facility] [id number] Anita [place] 08/24/2023 1 [place] [facility] Anita [place] [id number] Anita [place] Notes Date Note Type Note Provider Name and Address Organization Details Recorded Time 12/26/2020 text/html Beer - Abnormal BleedingReported bypatient.Onset/Timin g:irregular Duration:<7 days/month Quality:moderate Context:occurs midcycleNotes:30-year -old female who appears who has irregular bleeding. She states that she occasionally has premenstrual symptoms. She states that her bleeding is about every 2 weeks. It is the volume of a normal menstrual period. is unclear if this is anovulatory bleeding or intermenstrual bleeding. Patient is a poor historian. Carrillo Morales MD [address], [place], [address], [facility] 12/26/2020 14:37:47 01/08/2021 text/html this patient is a 30 year old female who presents for follow-up on ultrasound and laboratory work. Patient's sex hormones were evaluated. She appears to be ovulating has normal sex hormones. She did have a mildly elevated hemoglobin A1c in the prediabetic range/ low prediabetic. She was informed of this. We discussed her ultrasound results. Her IUD is well placed. She appears to have some periods that are regular and irregular bleeding at other times. She has a Mirena IUD to protect her lining of uterus. We reviewed prevention of endometrial cancer. We spent over 15 minutes vdkr-ly-mfcz. We will follow up as needed. Carrillo Morales MD [address], [place], [address], [facility] 01/08/2021 16:59:25 04/24/2021 text/html Annual GYNReport ed bypatient.Menstrual cycle:Normal menses Urinary symptoms:No hematuria; No incontinence Vulva:No genital lesion Vagina:Normal vaginal discharge Breast:No breast pain; No breast lump; No nipple discharge Psychological symptoms:No depression; No anxiety; No PMDD Preventive measures:Encourage self breast examination; Encourage regular exercise; Encourage no tobacco use; Encourage regular mammograms starting age 40Notes:unsure if wants new IUD, ok for 7 years if replaced wants pre medication knows she needs a driverc/o odor and irritation x 1 month declines std testing Zoey Samuels CNM [address], [place], [address], [facility] 04/24/2021 16:58:05 08/24/2023 text/html Annual GYNReport ed bypatient.Menstrual cycle:Normal menses Urinary symptoms:No hematuria; No incontinence Vulva:No genital lesion Vagina:Normal vaginal discharge Breast:No breast pain; No breast lump; No nipple discharge Current Contraception:Satisfi ed with current contraception; Intrauterine device (iud) Sexual complaints:No sexual complaints; No pain during intercourse; Normal libido Menopausal Symptoms:No menopausal symptoms; Normal vaginal lubrication Psychological symptoms:No depression; No anxiety; No PMDD Preventive measures:Encourage self breast examination; Encourage regular exercise; Encourage no tobacco use; Encourage regular mammograms starting age 40Notes:32yo WWElast pap 12/2021 - normalMirena IUD inserted : 11/08/2016, will 11/08/2024 has started to have periods again, LELAND Stevens [address], [place], [address], [facility] 08/24/2023 11:39:53 OBGyn Episode Ob Episode Information Episode Created Date Number of Fetuses Patient Bloodtype Patient rh Status Prepregnancy Weight lbs Domestic Partner Domestic Partner Phone Father Name Research Advisor Status 01/16/20 20 1 CLOSED Fetus Data First Name Last Name Admitted to NICU Weight (g) Sex Living Outcome Pediatric Complications Fetus ID Race Codes Race Delivery Type 3316.66 4704 M Full Term [id number] Vaginal Delivery Robbin Calculation Initial Robbin Date Initial Exam Date Initial Exam Provider Initial Ultrasound Date Last Menstrual Period Date Ultra Sound Weeks Gestation 0 Eighteen To Twenty Week Robbin Update Ultra Sound Date Fundal Height At Umbil Quickening Date Ultra Sound Latest Weeks Gestation Final Robbin Confirmed By Final Robbin Confirmed Date Final Robbin Date Ultra Sound Latest Days Gestation 0 0 Menstrual History Last Menstrual Date Menses Monthly On Bcp Conception Prior Menses Frequency Hcg Plus Date Menarche Onset Age Delivery Information Delivery Date Delivery Type Labor Anesthesia Weeks Gestation Incision Type Labor Labor Length Hrs Delivered By Post Complications Tubal Sterilization Discharge Date Comments 11/10/ 5 38.1 Joel GHTN, Positive GBS Discharge Information Feeding Method Contraceptive Method Maternal HG B and HCT Levels
--- OUTSIDE RECORDS SUMMARY | 2024-06-18 16:52 | XMS_ITS | Encounter Summary ---
Author Organization [facility] Address [address] [place] [address] Care Team Providers Care Course Instructor Name Role Phone Leelee Dillon Primary Care Provider Unavailabl e Reason for Referral * Other Medical (Routine) - Closed Specialty Diagnoses / Procedures Referred By Contsaurabh t Referred To Contact Diabetes Education Diagnoses Type 2 diabetes mellitus without complication, unspecified whether residential insulin use (HCC) Kate Dumont MD [address] [place] [address] Phone: tel: fax: [facility] - Diabetes Education [address] [place] [address] Phone: tel: Referral ID Status Reason Start Date Expiration Date V isits Requested Visits Authorized [id number] Closed Specialty Services Required 05/03/2024 05/03/2025 5 5 Scheduling Instructions Surgery date 05/28/24 L MEDICINE PHYSICIAN Reason for Visit * Reason Onset Date Comments Surgery Scheduling 05/03/2024 Encounter Details Date Type Department Care Team (Late st Contact Info) Description 05/03/2024 Telephone [facility] [address] [place] [address] Kate Dumont MD [address] [place] [address] Surgery Scheduling Social History Tobacco Use Types Packs/Day Years Used Date Smoking Tobacco: Never Smokeless Tobacco: Never Alcohol Use Standard Drinks/Week Comments Not Currently 0 (1 standard drink = 0.6 oz pur e alcohol) Once a month AUDIT-C Answer Date Recorded Q1: How often do you have a drink containing alc ohol? Monthly or less 04/06/2024 Q2: How many drinks containi ng alcohol do you have on a typical day when you are drinking? 1 or 2 04/06/2024 Q3: How often do you have si x or more drinks on one occasion? Never 04/06/2024 PHQ-2 Answer Date Recorded Patient Health Questionnaire-2 Score 0 04/27/2024 Comments No Sex and Gender Information Value Date Recorded Sex Assigned at Not on file Legal Sex Female 12:14 PM RENAL MEDICINE PHYSICIAN Gender Identity Not on file Sexual Orientation Not on file documented as of this encounter Functional Status * Is person deaf or have serious hearing difficulty? Answer Date of Assessment Author No 04/06/2024 12:32 PM RENAL MEDICINE PHYSICIAN Jolie Max RN * Is person blind or have serious difficulty seeing? Answer Date of Assessment Author No 04/06/2024 12:32 PM RENAL MEDICINE PHYSICIAN Jolie Max RN * Does person have serious difficulty walking/climbing stairs? Answer Date of Assessment Author No 04/06/2024 12:32 PM RENAL MEDICINE PHYSICIAN Jolie Max RN * Does person have difficulty dressing/bathing? Answer Date of Assessment Author No 04/06/2024 12:32 PM RENAL MEDICINE PHYSICIAN Jolie Max RN * Does person have difficulty doing errands alone? Answer Date of Assessment Author No 04/06/2024 12:32 PM RENAL MEDICINE PHYSICIAN Jolie Max RN documented as of this encounter Mental Status * Does person have difficulty concentrating/remembering/making decisions? Answer Entry Date Author No 04/06/2024 12:32 PM Jolie Bates RN documented in this encounter Miscellaneous Notes * Telephone Encounter - Deana Hooker LPN - 05/03/2024 3:53 PM RENAL MEDICINE PHYSICIAN Diabetes ed ordered. L MEDICINE PHYSICIAN * Telephone Encounter - Norma France CMA - 05/03/2024 3:26 PM RENAL MEDICINE PHYSICIAN Surgery Scheduled Called patient and surgery is scheduled for 05/28/24 in [place]. Patient aware of all preop appointments and instructions have been sent to them through [employer]. Pt v/u and will call us with any additional questions. Yes DM education needed L MEDICINE PHYSICIAN documented in this encounter Plan of Treatment Upcoming Encounters Date Type Department Care Team (Late st Contact Info) Description 07/02/2024 1:00 PM CDT Video Visit [facility] Weight Management Services [address] [place] [phone] Dayna Castillo APRN-JANELLE [address] [place] [address] 07/02/2024 1:30 PM CDT Video Visit [facility] [address] [place] [address] 09/05/2024 11:00 AM CDT Clinical Support [facility] [address] [place] [address] 09/05/2024 11:30 AM CDT Office Visit [facility] [address] [place] [address] Cuca Carias, CARRIAGE SETTER-WELL TENDER [address] [place] [address] 10/09/2024 11:45 AM CDT Office Visit [facility] [address] [facility], [address] [place] [address] Prakash Pickett MD [address] [place] [address] 11/30/2024 10:00 AM CDT Clinical Support [facility] [address] [place] [address] 11/30/2024 10:30 AM CDT Office Visit [facility] [address] [facility] [place] [phone] Cuca Carias, CARRIAGE SETTER-WELL TENDER [address] [place] [address] 05/29/2025 11:00 AM CDT Office Visit [facility] [address] [place] [address] Cuca Carias, CARRIAGE SETTER-WELL TENDER [address], [place] [address] 05/29/2025 11:30 AM CDT Clinical Support [facility] [address] [place] [phone] Scheduled Referrals Name Type Priority Associated Diagnoses Orde r Schedule AMB REFERRAL TO DIABETES SELF-MGT EDUCATION/TRAININ G Outpatient Referral Routine Type 2 diabetes mellitus without complication, unspecified whether residential insulin use 5 Occurrences starting 05/03/2024 until 05/03/2025 documented as of this encounter Visit Diagnoses Diagnosis Type 2 diabetes mellitus without complication, unspecified whether terminal press operator insulin use (HCC)- Primary documented in this encounter Care Teams Course Instructor Relationship Specialty Start Date End Date Leelee Dillon PCP - General 12/14/23 documented as of this encounter
--- OUTSIDE RECORDS SUMMARY | 2024-06-18 16:52 | XMS_ITS ---
Author Organization [facility] Address [address] [place] [address] Care Team Providers Care Industrial Real Estate Agent Name Role Phone Flip Medellin Primary Care Provider REASON FOR VISIT refills Encounters Encounter Location Date Provider Diagnosis [address] [place] [address] 04/30/2024 Flip Medellin Plan Of Treatment No Information Progress Notes * Anita CISNEROSDOB:1990 (33 yo F)Acc No.[id number]:04/30/2024 Patient: Anita MOSES :1990 A ge:33 Y S ex:Female Address:[address], [place], [address] * true * Date: Generated for Horacio conde/Isabel/eTransmitting on: 0 06/18/2024 04:52 PM CDT
--- OUTSIDE RECORDS SUMMARY | 2024-06-18 16:53 | XMS_ITS ---
Author Organization [facility] Address [address] [place] [address] Care Team Providers Care Investment Officer Name Role Phone Flip Medellin Primary Care Provider Allergies Allergen (clinical drug ingredient) Drug/Non Drug Allergy documented on EMR Reaction Allergy Type Onset Date Status Penicillin hives Drug Allergy Active REASON FOR VISIT f/u Medications Medication SIG (Take, Route, Frequency, Duration) Notes Start Date End Date Status Lurasidone HCl 60 MG 1 tablet in the candice sowmya with food Orally Once a day for 30 days Active hydrOXYzine HCl 25 MG 1-2 tablets as nee ded Orally three times a day Not-Shreyas ing Ozempic 0.5 mg Active Encounters Encounter Location Date Provider Diagnosis Counts Include [address] [facility] [address] [address] 02/23/2024 Flip Medellin ADHD (attention deficit hyperactivity disorder), combined type F90.2 ; Bipolar 1 disorder F31.9 and Cannabis use disorder F12.90 Assessments Encounter Date Diagnosis (ICD Code) Assessment Notes Treatment Notes Treatment Clinical Notes Section Notes 02/23/2024 ADHD (attention deficit hyperactivity disorder), combined [...] 1 hospitalization for bobbi in 2020 at [facility] with diagnosis of Bipolar disorder. Denies any previous SA/HI or SIB or AVH. Reports passive SI when depressed. Has 1 son who is 8. Today's visit: Patient is a 33-year-old female who presents for a psychiatric follow-up over phone and is located in [place]. Previously seen on 01/17/2024 and during this [...] or be administered own oral medications per [facility] protocols. Provided informed consent with understanding of side effects, adverse effects, risks and benefits as well as alternative treatments as previously discussed and with the above recommended medications & other aspects of the treatment program. Agrees to return sooner if symptoms worsen or suicidal or homicidal ideations occur. 02/23/2024 Bipolar 1 disorder (ICD-10 - F31.9) 02/23/2024 Cannabis use disorder (ICD-10 - F12.90) Plan Of Treatment Medication Medication Name Sig Start Date Stop Date Notes Atomoxetine HCl 80 MG 1 capsule in the m orning Orally Once a day for 30 days Lurasidone HCl 60 MG 1 tablet in the candice sowmya with food Orally Once a day for 30 days Treatment Notes Assessment Notes ADHD (attention deficit hype ractivity disorder), combined type History: Family hx of bipolar disorder in mother/grandmother possibly brother. Hx of trialing Trazodone 50 mg, Celexa 10 mg, Adderall 10 mg BID, Adderall XR 30 mg, olanzapine 10 mg, lithium 300 mg BID, Zoloft 50 mg, Lamictal 100 mg, Abilify 5 mg, Wellbutrin XL 150 mg, Lunesta 2 mg. 1 hospitalization for bobbi in 2020 at [facility] with diagnosis of Bipolar disorder. Denies any previous SA/HI or SIB or AVH. Reports passive SI when depressed. Has 1 son who is 8. Today's visit: Patient is a 33-year-old female who presents for a psychiatric follow-up over phone and is located in [place]. Previously seen on 01/17/2024 and during this [...] or be administered own oral medications per [facility] protocols. Provided informed consent with understanding of side effects, adverse effects, risks and benefits as well as alternative treatments as previously discussed and with the above recommended medications & other aspects of the treatment program. Agrees to return sooner if symptoms worsen or suicidal or homicidal ideations occur. Next Appt Details Follow Up: 3 Months or PRN, Reason: med f/u Progress Notes * Anita CISNEROSDOB:1990 (33 yo F)Acc No.[id number]:02/23/2024 Patient: Anita MOSES Provider: JOVITA Watts :1990 A ge:33 Y S ex:Female Date:02/23/2024 [address] [id number] Subjective: * Chief Complaints: * F /u * HPI: P sych F/U: Changes since last visit?: Ana M beverly the past month been pretty good seeing acardiologist currently, and he is wondering if we can change her medication off of the strattera.States the atomoxetine can lead to abnormal heart palpitations so she went ahead an stopped taking it since she's trying to get weight loss surgery and needs his approval first. She stopped taking the atomoxetine on D ec or . Ana M beverly recent EKG reading was abnormal and so she had to wear aheart monitor which she recently sent in, and an upcoming stress test. States with the increase of Latuda going okay, nobouts of sleepiness or restlessness so going pretty good . Denies anynoticeable changes with the increase, can't say that I did . States theholidays are a little hard for me, I think they are for everyone , criedwatching the Polar Express, otherwise nothing abnormal . Continues to sleep6-7 hours a night and feels rested during the day, with the occasional naps.Appetite has been okay , started Ozempic last month which affects her eating. Hasnot been taking the hydroxyzine.Denies any feelings of SI/HI.. D epression Screening: PHQ-9 L ittle interest or pleasure in doing things?Not at all F eeling down, depressed, or hopeless S everal days T rouble falling or staying asleep, or sleeping too much N ot at all F eeling tired or having little energy S everal days P oor appetite or overeating S everal days F eeling bad about yourself or that you are a failure, or have let yourself or your family down S everal days T rouble concentrating on things, such as reading the newspaper or watching television N early every day M oving or speaking so slowly that other people could have noticed; or the opposite, being so fidgety or restless that you have been moving around a lot more than usual N ot at all T houghts that you would be better off or of hurting yourself in some way N ot at all T otal Score 7 I nterpretation M ild Depression S creening: Talala Suicide Severity Rating Scale (LF) D o you want to initiate with S creener form 1 . Wish to be : Have you wished you were or wished you could go to sleep and not wake up? N o 2 . Suicidal Thoughts: Have you actually had any thoughts of killing yourself? N o 6 . Suicide Behaviour: Have you ever done anything,started to do anything, or prepared to end your life? N o I nterpretation: L ow Risk C SSRS Interpretation and Follow Up Plan: CSSRS Interpretation and Follow Up Plan C SSRS Screen documented using SF Y es M oderate or High risk requires selection of a follow up plan C SSRS No/Low: intervention not needed at this time * ROS: P sych ROS: Constitutional A ll systems negative or controlled on medication unless indicated otherwise.. * Medical History: * Surgical History: g land stones removed. * Hospitalization/Major Diagno stic Procedure: [facility] * Family History: F ather: alive, mental health. M other: alive, mental health. 3 sister(s) - healthy. 1 son(s) - healthy. . * Social History: P ana Social History: L iving Arrangement L iving Arrangement: D ependent Living Alcohol Use A lcohol Use Frequency: N ever Illicit Substance Usage I llicit Substance Usage: Y es S ubstance Used: C anncourtneys Employment Status E mployment Status: U nemployed * Medications: T akingOzempic , Notes to Pharmacist: 0.5 mgLurasidone HCl 60 MG Tablet 1 tablet in the evening with food Orally Once a day Taking Ozempic , Notes to Pharmacist: 0.5 mgTaking Lurasidone HCl 60 MG Tablet 1 tablet in the evening with food Orally Once a day Not-TakinghydrOXYzine HCl 25 MG Tablet 1-2 tablets as needed Orally three times a day Atomoxetine HCl 80 MG Capsule 1 capsule in the morning Orally Once a day Medication List reviewed and reconciled with the patientNot-Taking hydrOXYzine HCl 25 MG Tablet 1-2 tablets as needed Orally three times a day Not-Taking Atomoxetine HCl 80 MG Capsule 1 capsule in the morning Orally Once a day Medication List reviewed and reconciled with the patient * Allergies: P enicillin: hivesno[Allergies Verified] Objective: * Vitals: * Examination: M ental Status Exam: SENSORIUM AND COGNITION A lert, A&OX4. ATTENTION AND CONCENTRATION N o deficits. APPEARANCE P kathie interview - unable to determine appearance.. ATTITUDE AND BEHAVIOR C ooperative , Pleasant. MEMORY A dequate. EYE CONTACT P kathie interview. AFFECT P kathie interview - CHICA. MOOD E uthymic. SPEECH QUANTITY A ppropriate. SPEECH QUALITY S pontaneous , Appropriate volume. THOUGHT PROCESS C oherent and goal directed. THOUGHT CONTENT N o evidence of delusional content , No reports of paranoia. LANGUAGE A ppropriate - WDL. MOTOR ACTIVITY P kathie interview, CHICA. SUICIDAL IDEATION D enies SI or thoughts of self harm. HOMICIDAL IDEATION D enies homicidal ideation or thoughts of aggression. HALLUCINATIONS D enies Auditory, Visual and Tactile hallucinations. INSIGHT A dequate. JUDGMENT A dequate. FUND OF KNOWLEDGE A dequate. ABILITY TO PARTICIPATE IN TREATMENT A dequate. WILLINGNESS TO PARTICIPATE IN TREATMENT A dequate. ? Assessment: * Assessment: 1. A DHD (attention deficit hyperactivity disorder), combined type - F90.2 2 .?Bipolar 1 disorder - F31.9 (Primary) S pecify :most recent episode of bobbi currently in remission 3 . C annabis use disorder - F12.90 Plan: * Treatment: 2. A DHD (attention deficit hyperactivity disorder), combined type Stop Atomoxetine HCl Capsule, 80 MG, 1 capsule in the morning, Orally, Once a day, 30 days, 30.? Notes:History: Family hx of bipolar disorder in mother/grandmother possibly brother. Hx of trialing Trazodone 50 mg, Celexa 10 mg, Adderall 10 mg BID, Adderall XR 30 mg, olanzapine 10 mg, lithium 300 mg BID, Zoloft 50 mg, Lamictal 100 mg, Abilify 5 mg, Wellbutrin XL 150 mg, Lunesta 2 mg. 1 hospitalization for bobbi in 2020 at [facility] with diagnosis of Bipolar disorder. Denies any previous SA/HI or SIB or AVH. Reports passive SI when depressed. Has 1 son who is 8. Today's visit: Patient is a 33-year-old female who presents for a psychiatric follow-up over phone and is located in [place]. Previously seenon 4and during this appt was increased on Latuda to 60 mg QHS and increased onatomoxetine to 80 mg.Previous PHQ-9score of8, today is7. Recently increased dose but did not notice [...] limited options due to potential cardiac side effects.Unable to complete AIMS due to nature of appt, denies any irregular muscle movements; would benefit from an in person appointment.No acute safety concerns at the time of this appt, she is agreeable to treatment plan and was provided an opportunity to ask questions. May self-administer medications or be administered own oral medications per [facility] protocols. Provided informed consent with understanding of side effects, adverse effects, risks and benefits as well as alternative treatments as previously discussed and with the above recommended medications & other aspects of the treatment program. Agrees to return sooner if symptoms worsen or suicidal or homicidal ideations occur. * Procedure Codes: * Follow Up: 3 Months or PRN (Reason: med f/u) * * LY PARTNER Sign off status: Completed true * Provider: Toby Medellin, PMP Date: 04/25/2023 Generated for Horacio conde/Isabel/Bran on: 0 06/18/2024 04:53 PM CDT History and Physical Notes * HPI (History of Present Illness) Category Sub-Category Detail Notes Category Not es Depression Screening PHQ-9 Little inte rest or pleasure in doing things: Not at all Feeling down, depressed, or hopeless: Se veral days Trouble falling or staying asleep, or sl eeping too much: Not at all Feeling tired or having little energy: S everal days Poor appetite or overeating: Several day s Feeling bad about yourself o r that you are a failure, or have let yourself or your family down: Several days Trouble concentrating on thi ngs, such as reading the newspaper or watching television: Nearly every day Moving or speaking so slowly that other people could have noticed; or the opposite, being so fidgety or restless that you have been moving around a lot more than usual: Not at all Thoughts that you would be b paul off or of hurting yourself in some way: Not at all Total Score: 7 Interpretation: Mild Depression Psych F/U Changes since last visit?: States the past month been pretty good seeing a paper bag machine operator currently, and he is wondering if we can change her medication off of the strattera. States the atomoxetine can lead to abnormal heart palpitations so she went ahead an stopped taking it since she's trying to get weight loss surgery and needs his approval first. She stopped taking the atomoxetine on Feb 15 or . States recent EKG reading was abnormal and so she had to wear a heart monitor which she recently sent in, and an upcoming stress test. States with the increase of Latuda going okay, no bouts of sleepiness or restlessness so going pretty good . Denies any noticeable changes with the increase, can't say that I did . States the holidays are a little hard for me, I think they are for everyone , cried watching the Polar Express, otherwise nothing abnormal . Continues to sleep 6-7 hours a night and feels rested during the day, with the occasional naps. Appetite has been okay , started Ozempic last month which affects her eating. Has not been taking the hydroxyzine. Denies any feelings of SI/HI. Screening Talala Suicide Sev erity Rating Scale (LF) Do you want to initiate with: Screener form 1. Wish to be : Have you wished you were or wished you could go to sleep and not wake up?: No 2. Suicidal Thoughts: Have you actually had any thoughts of killing yourself?: No 6. Suicide Behavior Question: Have you ever done anything,started to do anything, or prepared to end your life?: No Interpretation:: Low Risk Do Not Use CSSRS Interpretation and Follow Up Plan CSSRS Interpretation and Follow Up Plan CSSRS Screen documented using SF: Yes Moderate or High risk requir es selection of a follow up plan: CSSRS No/Low: intervention not needed at this time Examination Category Sub-Category Detail Notes Category Not es Mental Status Exam SENSORIUM AND COGNITION Alert, A&OX 4 ATTENTION AND CONCENTRATION No deficits APPEARANCE Phone interview - un able to determine appearance. ATTITUDE AND BEHAVIOR Cooperative , Plea kenya MEMORY Adequate EYE CONTACT Phone interview AFFECT Phone interview - UT A MOOD Euthymic SPEECH QUANTITY Appropriate SPEECH QUALITY Spontaneous , Approp riate volume THOUGHT PROCESS Coherent and goal di rected THOUGHT CONTENT No evidence of delus ional content , No reports of paranoia MOTOR ACTIVITY Phone interview, CHICA SUICIDAL IDEATION Denies SI or thought s of self harm HOMICIDAL IDEATION Denies homicidal bassam ation or thoughts of aggression HALLUCINATIONS Denies Auditory, Vis ual and Tactile hallucinations INSIGHT Adequate JUDGMENT Adequate FUND OF KNOWLEDGE Adequate ABILITY TO PARTICIPATE IN TREATMENT Adeq uate WILLINGNESS TO PARTICIPATE IN TREATMENT Adequate LANGUAGE Appropriate - WDL
--- OUTSIDE RECORDS SUMMARY | 2024-06-18 16:53 | XMS_ITS | CONTINUITY OF CARE DOCUMENT ---
Author Name yordyericmarion Address Unknown Organization [facility] Address [address] [place] [address] Phone [phone] Care Team Providers Care Furniture Cleaner Name Role Phone Julio Cesar KO, Aislinn Unavailable ALEXANDRO KO, ELTON Unavailable Unavailable EDEL KO, LISA Unavailable INSURANCE PROVIDERS Payer name Policy type / Coverage type Amarjit red democrat ID [facility] [id number]
--- OUTSIDE RECORDS SUMMARY | 2024-06-18 16:53 | XMS_ITS | Clinical Summary ---
Author Organization [facility] Address [address] [place] [address] Care Team Providers Care Program Management Professional Name Role Phone Leelee Dillon Primary Care Provider Unavailabl e Source Comments [facility],non-owned Affiliates and Associated Physician Practices is amultiple site organization consisting of ambulatory clinics and hospital sitesin [place], [place], [place] and [place]. This disclosure is being madepursuant to the Care Everywhere program and may not contain all information available regarding this patient. Last updated 17.[facility] Allergies Active Allergy Reactions Criticality Noted Date Comments Perflutren Lipid Microsphere Elevated Blood Pressure,Other,Heada ray Medium 03/23/2024 Moderate back pain Penicillins Swelling High 10/24/2023 Swelling/hives Medications * Be aware that medications may not be up to date on this document. Alwaysverify current medications with the patient. lurasidone (Latuda) 60 MG tablet TAKE 1 TABLET BY MOUTH DAILY IN THE EVENING WITH FOOD 5 Active Multiple Vitamins-Barry als (CENTRUM ULTRA WOMENS PO) Take 1 tablet by mouth once daily Active Ferrous Sulfate (IRON PO) Take 1 tablet by mouth once daily Active vitamin D, ergocalciferol , (Drisdol) 1.25 MG (84807 UT) capsuleIndicat ions:Vitamin D Deficiency Take 1 (one) capsule by mouth every 7 days Reasons: Vitamin D Deficiency 4 capsule 3 5 Active insulin lispro (HumaLOG;ADMel og) 100 UNIT/ML pen Bariatric sliding scale in media very low dose Active calcium citrate (Citracal 950) 950 MG tablet Take by mouth once daily Active Probiotic Product (Advanced Liquid Logic) capsuleIndicat ions:Bariatric surgery status Take 1 (one) capsule by mouth once daily 30 capsule 3 5 Active omeprazole (PriLOSEC) 40 MG capsuleIndicat ions:Bariatric surgery status Take 1 (one) capsule by mouth daily before breakfast for 90 days 90 capsule 5 08/17/19 25 Active acetaminophen (TYLENOL) 500 MG tabletIndicati ons:Bariatric surgery status Pt is to take 2 tabs po every 8 hours for basal pain. May take additional 1 tab twice daily if needed. Pt to not exceed 4000mg daily. 40 tablet 5 Active ursodiol (Actigall) 300 MG capsuleIndicat ions:Bariatric surgery status Take 1 (one) capsule by mouth 2 times daily for 90 days Take 1 (one) capsule by mouth 2 times daily for 90 days Do Not start until 1 week post op. 180 capsule 5 08/17/19 25 Active hydrOXYzine HCl (Atarax) 10 MG tablet Take by mouth as needed for Itching Active amLODIPine (Norvasc) 10 MG tablet Take 1 (one) tablet by mouth once daily Active lisinopril (Prinivil; Zestril) 40 MG tablet Take 1 (one) tablet by mouth once daily Active Blood Glucose Monitoring Suppl (ONE TOUCH ULTRA 2) w/Device KIT USE TO TEST BLOOD SUGARS 5 Active OneTouch Ultra test strip TEST FOUR TIMES DAILY 5 Active B-D UF III MINI PEN NEEDLES 31G X 5 MM needle USE TO INJECT INSULIN FOUR TIMES DAILY 5 Active Blood Pressure Monitor [facility] Use 1 Each once daily Check your blood pressure daily before taking your blood pressure medication Keep a log of your readings Do not take your blood pressure medicine if your reading is less than 120/80 5 Active metFORMIN (Glucophage) 500 MG tablet Take 1 (one) tablet by mouth once daily 4 05/22/19 25 Discontinu ed(Tx Complete) lisinopril-hyd roCHLOROthiazi de (Prinzide; Zestoretic) 10-12.5 MG tablet Take 1 (one) tablet by mouth once daily 05/31/19 25 Discontinu ed(Dose Adjustment ) scopolamine (Transderm-Sco p) 1 MG patchIndicatio ns:Surgery Apply 1 patch to skin pre-op for 1 dose, place 1 patch behind ear night before surgery Reasons: Operation 1 patch 5 05/31/19 25 Discontinu ed(Tx Complete) ondansetron, disintegrating , (Zofran ODT) 4 MG tabletIndicati ons:Bariatric surgery status Take 1 (one) tablet by mouth every 4 hours as needed for Nausea/Vomitin g Allow tablet to dissolve on the tongue 30 tablet 2 5 06/18/19 25 Active Problems Problem Noted Date Diagnosed Date Morbid obesity 05/28/2024 Hiatal hernia 05/28/2024 Encounters Date Type Department Care Team Description 5 9:45 AM CDT Video Visit [facility] [address] [place] [address] S/P laparoscopic sleeve gastrectomy 5 Refill [facility] [address] [place] [address] Cuca Carias, CRA OFFICER-VISUAL DESIGNER Refill Request 5 9:00 AM CDT Office Visit [facility] - Internal Medicine [address], [address] [address] Quinten Agee MD Sleepiness (Primary Dx); JOANNA (obstructive sleep apnea) 5 1:30 PM CDT Video Visit [facility] [address] [place] [address] Cuca Carias, CRA OFFICER-VISUAL DESIGNER Status post laparoscopic sleeve gastrectomy ; History of repair of hiatal hernia 5 Telephone [facility] [address] [place] [address] Kate Dumont MD Post-Op 5 8:24 AM CDT Anesthesia Event [facility] [address] [place] [address] Tam Orr MD Heaney, Michael, MD 5 7:45 AM CDT - 5 10:10 AM CDT Surgery [facility] [address] [place] [address] Kate Dumont MD LAPAROSCOPIC SLEEVE GASTRECTOMY WITH HIATAL HERNIA REPAIR 5 6:02 AM CDT - 5 4:00 PM CDT Hospital Encounter [facility] [address] [place] [address] Kate Dumont MD Surgery General Discharge Disposition: Home or Self Care 5 Travel 5 11:15 AM CDT Video Visit [facility] [address] [place] [address] Kate Dumont MD Morbid obesity due to excess calories 5 Telephone [facility] Weight Management Services [address] [place] [address] Cuca Carias, CARIDAD-JANELLE Question 5 Telephone [facility] [address] [place] [phone] Kate Dumont MD Bariatric Surgery Pre-op Instruction 5 2:10 PM CDT Video Visit [facility] Antico[facility] - Clinical Pharmacy [address] [place] [phone] Cuca Carias, CRA OFFICER-VISUAL DESIGNER Sushma Sherwood, BrianD Encounter for pre-bariatric surgery counseling and education 5 12:00 PM CDT - 5 11:59 PM CDT Hospital [facility] [address] [place] [address] Kate Dumont MD Discharge Disposition: Home or Self Care 5 Telephone [facility] Weight Management Services [address] [place] [address] Kate Dumont MD Hypertension 5 Travel 5 Telephone [facility] Weight Management Services [address] [place] [phone] Kate Dumont MD Bariatric Surgery Pre-op Instruction 5 Telephone [facility] Diabetes [facility] [address] [place] [address] Ronald Byers, data software engineer 5 Telephone [facility] Weight Management Services [address] [place] [phone] Cuca Carias APRN-JANELLE Pre Op Call 5 10:30 AM CDT Video Visit [facility] [address] [place] [phone] Morbid obesity 5 9:00 AM CDT - 5 11:59 PM CDT Hospital Encounter [facility] Diabetes [facility] [address] [place] [address] Kate Dumont MD Discharge Disposition: Home or Self Care 5 6:00 PM TRAINING PROJECT MANAGER - 5 11:59 PM TRAINING PROJECT MANAGER Hospital Encounter [facility] Imaging [facility] - [place] Scan [address] [place] [address] Batsheva Islas, CARIDAD-VISUAL DESIGNER Discharge Disposition: Home or Self Care 5 Travel 5 Telephone [facility] Diabetes Education [address] [place] [address] Loren Alcantar S Referral 5 Telephone [facility] [address] [place] [phone] Kate Dumont MD Surgery Scheduling 5 Orders Only [facility] Weight [facility] [address] [place] [phone] Kate Dumont MD Pre-op testing; Morbid obesity 5 Orders Only [facility] [address] [place] [facility] [place] [address] Dayna Castillo APRN-CNP Morbid obesity; Pre-op testing; Iron deficiency 5 Orders Only [facility] Weight Management Services [address] [place] [facility] [place] [address] Cuca Carias APRN-CNP Iron deficiency 5 Orders Only [facility] [address] [place] [facility] [place] [address] Cuca Carias APRN-CNP Vitamin D deficiency 5 Telephone [facility] [address] [place] [address] Ilana Springer, RD/LDN LABS ONLY 5 Orders Only [facility] Weight Management Services [address] [place] [address] Cuca Carias APRN-CNP Iron deficiency 5 Telephone [facility] Weight Management Services [address] [place] [address] Dayna Castillo APRN-CNP LABS ONLY 5 Refill [facility] [address] [place] [address] Dayna Castillo APRN-CNP Refill Request 5 1:00 PM TRAINING PROJECT MANAGER Video Visit [facility] Weight Management Services [address] [place] [address] Dayna Castillo APRN-CNP Morbid obesity ; Folate deficiency; Iron deficiency; Pre-op testing 5 10:00 AM TRAINING PROJECT MANAGER Office Visit [facility] Services [address] [place] [address] Morbid obesity (Primary Dx) 5 11:40 AM TRAINING PROJECT MANAGER - 5 12:07 PM TRAINING PROJECT MANAGER Surgery [facility] [address] [place] [address] Kate Dumont MD ESOPHAGOGASTRODUODENOSCOPY WITH BIOPSY 5 11:37 AM TRAINING PROJECT MANAGER Anesthesia Event [facility] [address] [place] [address] Edson Low MD 5 9:32 AM TRAINING PROJECT MANAGER - 5 12:49 PM TRAINING PROJECT MANAGER Hospital Encounter [facility] [address] [place] [address] Kate Dumont MD Surgery General Discharge Disposition: Home or Self Care 5 Travel 5 Travel 5 1:30 PM TRAINING PROJECT MANAGER Office Visit [facility] [address] [facility] [address] [place] [address] Caroline Card, CRA OFFICER-VISUAL DESIGNER Abnormal EKG (Primary Dx); Shortness of breath; Enlarged aorta; Preop cardiovascular exam; Diabetes mellitus type 2, noninsulin dependent; HTN (hypertension), benign 5 1:30 PM TRAINING PROJECT MANAGER Video Visit [facility] [address] [place] [phone] Cuca Carias CRA OFFICER-VISUAL DESIGNER Morbid obesity 5 Telephone [facility] [address] [facility], [address] [place] [address] Batshvea Islas APRN-VISUAL DESIGNER Results 5 Orders Only [facility] Heart & Vascular Care [address] [facility], [address] [place] [address] Batsheva Islas APRN-VISUAL DESIGNER Enlarged aorta 5 Telephone [facility] Weight Management Services [address] [place] [phone] Kate Dumont MD Scheduling (EGD pre op) 5 Travel 5 11:35 AM TRAINING PROJECT MANAGER - 5 2:21 PM TRAINING PROJECT MANAGER Emergency ER at [facility] [address] [place] [address] Sada Foster APRN-JANELLE Hypertension, unspecified type Discharge Disposition: Home or Self Care 5 9:00 AM TRAINING PROJECT MANAGER Hospital Encounter [facility] Cardiovascular Ultrasound [address] [place] [address] Prakash Pickett MD Discharge Disposition: Home or Self Care 5 Travel 5 8:30 AM TRAINING PROJECT MANAGER Video Visit [facility] [address] [place] [phone] Morbid obesity from Last 3 Months Family History Medical History Relation Name Comments CAD (Coronary Artery Disease) Maternal Grandfather Diabetes; unknown type Maternal Grandfather Heart Failure Maternal Grandfather Cancer Maternal Grandmother Heart Failure Paternal Uncle Relation Name Status Comments Maternal Grandfather Maternal Grandmother Paternal Uncle Other Social History Tobacco Use Types Packs/Day Years Used Date Smoking Tobacco: Never Smokeless Tobacco: Never Tobacco Cessation:Counseling Given: Not Answered Alcohol Use Standard Drinks/Week Comments Not Currently [...] Date Recorded Patient Health Questionnaire-2 Score 0 06/07/2024 Comments No Sex and Gender Information Value Date Recorded Sex Assigned at Not on file Legal Sex Female 12:14 PM TRAINING PROJECT MANAGER Gender Identity Not on file Sexual Orientation Not on file Last Filed Vital Signs Vital Sign Reading Time Taken Comments Blood Pressure 138/76 06/07/2024 9:02 AM CDT Pulse 115 06/07/2024 9:02 AM CDT Temperature 36.7 C (98 F) 06/07/2024 9:02 AM CDT Respiratory Rate 16 05/30/2024 7:21 AM CDT Oxygen Saturation 97% 06/07/2024 9:02 AM CDT Inhaled Oxygen Concentration 21% 05/30/2024 7 :06 AM CDT Weight 178.4 kg (393 lb 3.2 oz) 06/13/2024 9:00 AM CDT Height 175.3 cm (5' 9 ) 06/13/2024 9:00 AM CDT Body Mass Index 58.07 06/13/2024 9:00 AM CDT Plan of Treatment Upcoming Encounters Date Type Department Care Team (Late st Contact Info) Description 07/02/2024 1:00 PM CDT Video Visit [facility] Weight Management Services [address] [place] [phone] Dayna Castillo APRN-VISUAL DESIGNER [address] [place] [address] 07/02/2024 1:30 PM CDT Video Visit [facility] Weight Management Services [address] [place] [phone] 09/05/2024 11:00 AM CDT Clinical Support [facility] Weight Management Services [address] [place] [address] 09/05/2024 11:30 AM CDT Office Visit [facility] Weight Management Services [address] [place] [address] Cuca Carias, CRA OFFICER-VISUAL DESIGNER [address] [place] [address] 10/09/2024 11:45 AM CDT Office Visit [facility] Health Heart & Vascular Care [address] [facility], [facility] [address] [place] [address] Prakash Pickett MD [address] [facility] [address] [place] [phone] 11/30/2024 10:00 AM CDT Clinical Support [facility] Weight Management Services [address] [place] [facility] [place] [phone] 11/30/2024 10:30 AM CDT Office Visit [facility] Weight Management Services [address] [place] [facility] [phone] Cuca Carias CRA OFFICER-VISUAL DESIGNER [address] [place] [address] 05/29/2025 11:00 AM CDT Office Visit [facility] Weight Management Services [address] [place] [facility] [place] [phone] Cuca Carias CRA OFFICER-VISUAL DESIGNER [address] [place] [address] 05/29/2025 11:30 AM CDT Clinical Support [facility] Services [address] [place] [phone] Health Maintenance Due Date Last Done Comments HIV SCREENING 09/21/2007 HEPATITIS C SCREENING 09/16/2010 DTAP/TDAP/TD VACCINES (1 - Tdap) 09/21/2011 HEPATITIS B VACCINE (1 of 3 - 19+ 3-dose series) 09/21/2011 PNEUMOCOCCAL VACCINE (1 of 2 - PCV) 09/21/2011 COVID-19 VACCINE ( - season) 2023 12/26/2020, 06/19/2020, 05/29/2020 INFLUENZA VACCINE (Season Ended) 2024 12/24/2021, 12/18/2020, 10/17/2019, Additional history exists PAP SMEAR 08/23/2026 08/24/2023 ZOSTER VACCINE (1 of 2) 2042 DEPRESSION SCREENING Completed 03/26/2024, 10/27/19 HIB VACCINE Aged Out No longer eligi ble based on patient's age to complete this topic HPV VACCINE Aged Out No longer eligi ble based on patient's age to complete this topic MENINGOCOCCAL (Group B) VACCINE SHARED DECISION-MAKING Aged Out No longer eligible based on patient's age to complete this topic MENINGOCOCCAL GROUPS A/C/Y/W VACCINE Aged Out No longer eligible based on patient's age to complete this topic Medical Devices Implanted Type Area Medical Laboratory Technical Officer Device Identifier Shelf Expiration Date Model / Serial / Lot Kit Tissue Clsr Duo Tssl 1 Prefl Syr - [id number] Implanted:Qty: 1 on 05/28/2024 by Kate Dumont MD at [facility] 01/27/2025 [id number] / [id number] / [id number] Procedures Procedure Name Priority Date/Time Associated Diagnosis Comments APHERESIS/TRANSFUSI ON ORDER 06/01/2024 3:27 PM CDT CARDIAC RHYTHM STRIP ORDER 06/01/2024 3:27 PM CDT GLUCOSE - POINT OF CARE Routine 05/30/2024 12:08 PM CDT GLUCOSE - POINT OF CARE Routine 05/30/2024 6:09 AM CDT PHOSPHORUS BLOOD Routine 05/30/2024 5:45 AM CDT Morbid obesity (HCC) Hiatal hernia MAGNESIUM BLOOD Routine 05/30/2024 5:45 AM CDT Morbid obesity (HCC) Hiatal hernia COMPREHENSIVE METABOLIC PANEL Routine 05/30/2024 5:45 AM CDT Morbid obesity (HCC) Hiatal hernia CBC W AUTO DIFFERENTIAL Routine 05/30/2024 5:45 AM CDT Morbid obesity (HCC) Hiatal hernia GLUCOSE - POINT OF CARE Routine 05/29/2024 10:05 PM CDT GLUCOSE - POINT OF CARE Routine 05/29/2024 5:15 PM CDT GLUCOSE - POINT OF CARE Routine 05/29/2024 12:05 PM CDT GLUCOSE - POINT OF CARE Routine 05/29/2024 6:07 AM CDT HEMOGLOBIN A1C Routine 05/29/2024 5:25 AM CDT Morbid obesity (HCC) Hiatal hernia PHOSPHORUS BLOOD Routine 05/29/2024 5:25 AM CDT Morbid obesity (HCC) Hiatal hernia MAGNESIUM BLOOD Routine 05/29/2024 5:25 AM CDT Morbid obesity (HCC) Hiatal hernia COMPREHENSIVE METABOLIC PANEL Routine 05/29/2024 5:25 AM CDT Morbid obesity (HCC) Hiatal hernia CBC W AUTO DIFFERENTIAL Routine 05/29/2024 5:25 AM CDT Morbid obesity (HCC) Hiatal hernia GLUCOSE - POINT OF CARE Routine 05/28/2024 9:50 PM CDT MAGNESIUM BLOOD Timed 05/28/2024 8:26 PM CDT Hypomagnesemia GLUCOSE - POINT OF CARE Routine 05/28/2024 5:15 PM CDT GLUCOSE - POINT OF CARE Routine 05/28/2024 12:28 PM CDT PHOSPHORUS BLOOD Routine 05/28/2024 12:08 PM CDT Morbid obesity Hiatal hernia MAGNESIUM BLOOD Routine 05/28/2024 12:08 PM CDT Morbid obesity Hiatal hernia COMPREHENSIVE METABOLIC PANEL Routine 05/28/2024 12:08 PM CDT Morbid obesity Hiatal hernia CBC W AUTO DIFFERENTIAL Routine 05/28/2024 11:18 AM CDT Morbid obesity Hiatal hernia GLUCOSE - POINT OF CARE Routine 05/28/2024 10:50 AM CDT GROSS + MICRO EXAM (ILL) Routine 05/28/2024 9:49 AM CDT Morbid obesity (HCC) Hiatal hernia RI LAP SLEEVE GASTRECTOMY 05/28/2024 8:09 AM CDT Morbid obesity Hiatal hernia Special Needs ARRIVAL TIME: 0600 Abdominal Binder: 62 /[address] Dumont HCG URINE QUALITATIVE Routine 05/28/2024 6:20 AM CDT GLUCOSE - POINT OF CARE Routine 05/28/2024 6:19 AM CDT BLOOD TYPE VERIFICATION Routine 05/21/2024 1:03 PM CDT TYPE + SCREEN PANEL Routine 05/21/2024 12:52 PM CDT Pre-op testing CT CHEST WO CONTRAST Routine 05/04/2024 6:24 PM TRAINING PROJECT MANAGER Enlarged aorta FOLATE Routine 05/02/2024 Folate deficiency Pre-op testing PT PTT PANEL Routine 05/01/2024 Pre-op testing Morbid obesity IRON + TRANSFERRIN PANEL Routine 05/01/2024 Iron deficiency Pre-op testing HEMOGLOBIN A1C Routine 05/01/2024 Morbid obesity Pre-op testing LIPID PROFILE Routine 05/01/2024 Morbid obesity Pre-op testing VITAMIN D 25-HYDROXY Routine 05/01/2024 Morbid obesity Pre-op testing TSH Routine 05/01/2024 Morbid obesity Pre-op testing CARDIAC RHYTHM STRIP ORDER 04/09/2024 1:20 PM TRAINING PROJECT MANAGER GLUCOSE - POINT OF CARE Routine 04/06/2024 12:12 PM TRAINING PROJECT MANAGER GROSS + MICRO EXAM (ILL) Routine 04/06/2024 11:54 AM TRAINING PROJECT MANAGER Encounter for screening for upper gastrointestinal disorder RI EGD FLEX TRANSORAL W BX SNGL OR MULT 04/06/2024 11:32 AM TRAINING PROJECT MANAGER Encounter for screening for upper gastrointestinal disorder Special Needs ARRIVAL TIME: 0930 GLUCOSE - POINT OF CARE Routine 04/06/2024 9:47 AM TRAINING PROJECT MANAGER HCG URINE QUALITATIVE Pre-Op 04/06/2024 9:44 AM TRAINING PROJECT MANAGER Preop testing XR CHEST 1VW PORTABLE STAT 03/23/2024 12:14 PM TRAINING PROJECT MANAGER Hypertension, unspecified type EKG 12-LEAD STAT 03/23/2024 11:41 AM TRAINING PROJECT MANAGER Hypertension, unspecified type TROPONIN-I HIGH SENSITIVE STAT 03/23/2024 11:36 AM TRAINING PROJECT MANAGER COMPREHENSIVE METABOLIC PANEL STAT 03/23/2024 11:36 AM TRAINING PROJECT MANAGER CBC W AUTO DIFFERENTIAL STAT 03/23/2024 11:36 AM TRAINING PROJECT MANAGER ECHO COMPLETE W CONTRAST Routine 03/23/2024 10:58 AM TRAINING PROJECT MANAGER Shortness of breath from Last 3 Months Results * APHERESIS/TRANSFUSION ORDER (06/01/2024 3:27 PM CDT) Narrative 06/01/2024 3:27 PM CDT Ordered by an unspecified provider. us Scanned Document NURSING - VITAL SIGNS AND ASSES SMENT Final Result * CARDIAC RHYTHM STRIP ORDER (06/01/2024 3:27 PM CDT) Only the most recent of2 resultswithin the time period is included. Narrative 06/01/2024 3:27 PM CDT Ordered by an unspecified provider. us Scanned Document CARDIAC SERVICES ORDERABLES Cooper randy Result - Final * GLUCOSE - POINT OF CARE (05/30/2024 12:08 PM CDT) Only the most recent of13 resultswithin the time period is included. [facility] Glucose WB/POC 108 70 - 125 mg/dL 05/30/2024 5:03 PM CDT [facility] Specimen Type Cap Fingerstick 2024 5:03 PM CDT [facility] Blood BLOOD SPECIMEN / Unknown 05/30/2024 12:08 PM CDT 05/30/2024 5:03 PM CDT us Kate Dumont MD LAB - POINT OF CARE JUN MAZARIEGOS Final Result Performing Organization Address City/State/[place]UST Co de Phone Number [facility] [address] * (ABNORMAL) CBC W AUTO DIFFERENTIAL (05/30/2024 5:45 AM CDT) Only the most recent of4 resultswithin the time period is included. WBC 11.5(H) 4.0 - 10.7 x10E9/L 05/30/2024 6:01 AM T [facility] RBC Count 5.07 3.90 - 5.20 x10E12/L 05/30/2024 6:01 AM T [facility] Hemoglobin 13.8 11.9 - 15.8 g/dL 05/30/2024 6:01 AM T [facility] Hematocrit 41.3 34.8 - 46.1 % 05/30/2024 6:01 AM [facility] MCV 81.5 80.0 - 98.0 fL 05/30/2024 6:01 AM [facility] MCH 27.2 26.7 - 33.6 pg 05/30/2024 6:01 AM T [facility] MCHC 33.4 31.7 - 36.3 g/dL 05/30/2024 6:01 AM T [facility] RDW-CV 14.8 11.3 - 14.8 % 05/30/2024 6:01 AM T [facility] Platelet Count 310 150 - 420 x10E9/L 05/30/2024 6:01 AM T [facility] MPV 9.4 7.8 - 11.4 fL 05/30/2024 6:01 AM T [facility] Neutrophil % 68.3 41.0 - 74.0 % 05/30/2024 6:01 AM T [facility] Lymphocyte % 24.5 17.0 - 47.0 % 05/30/2024 6:01 AM CDT [facility] Monocyte % 6.1 3.0 - 11.0 % 05/30/2024 6:01 AM CDT [facility] Eosinophil % 0.2 0.0 - 7.0 % 05/30/2024 6:01 AM T [facility] Basophil % 0.3 0.0 - 1.6 % 05/30/2024 6:01 AM CDT [facility] Immature Granulocytes % 0.6 0.0 - 1.0 % 05/30/2024 6:01 AM CDT [facility] Neutrophil Absolute 7.85(H) 1.60 - 7.50 x10E9/L 05/30/2024 6:01 AM CDT [facility] Lymphocyte Absolute 2.81 1.00 - 4.40 x10E9/L 05/30/2024 6:01 AM T [facility] Monocyte Absolute 0.70 0.15 - 1.00 x10E9/L 05/30/2024 6:01 AM T [facility] Eosinophil Absolute 0.02 0.00 - 0.60 x10E9/L 05/30/2024 6:01 AM T [facility] Basophil Absolute 0.04 0.00 - 0.13 x10E9/L 05/30/2024 6:01 AM T [facility] Blood BLOOD SPECIMEN / Unknown Lab Venipuncture / Unknown 05/30/2024 5:45 AM CDT 05/30/2024 5:57 AM CDT us Kate Dumont MD LAB - HEMATOLOGY ORDERAB LES Final Result Performing Organization Address [facility]/State/[facility] de Phone Number [facility] [address] * (ABNORMAL) COMPREHENSIVE METABOLIC PANEL (05/30/2024 5:45 AM CDT) Only the most recent of4 resultswithin the time period is included. [facility] Glucose 106 70 - 125 mg/dL 05/30/2024 6:38 AM CDT [facility] Sodium 137 136 - 145 mmol/L 05/30/2024 6:38 AM CDT [facility] Potassium 3.8 3.4 - 5.1 mmol/L 05/30/2024 6:38 AM [facility] Chloride 107 98 - 107 mmol/L 05/30/2024 6:38 AM [facility] CO2 21(L) 22 - 29 mmol/L 05/30/2024 6:38 AM [facility] Calcium 8.54 8.4 - 10.2 mg/dL 05/30/2024 6:38 AM [facility] [facility] Anion Gap 9 6 - 16 mmol/L 05/30/2024 6:38 AM [facility] BUN 8.1(L) 9.8 - 20.1 mg/dL 05/30/2024 6:38 AM [facility] Creatinine 0.61 0.57 - 1.11 mg/dL 05/30/2024 6:38 AM [facility] Alkaline Phosphatase 41 40 - 150 U/L 05/30/2024 6:38 AM [facility] ALT 121(H) <=55 U/L 05/30/2024 6:38 AM [facility] AST 68(H) 5 - 34 U/L 05/30/2024 6:38 AM [facility] Protein Total 6.8 6.4 - 8.3 gm/dL 05/30/2024 6:38 AM [facility] Albumin 3.4 3.4 - 4.8 gm/dL 05/30/2024 6:38 AM [facility] Globulin Total 3.4 2.6 - 4.0 gm/dL 05/30/2024 6:38 AM [facility] Albumin/Globulin Ratio 1.0 0.9 - 1.6 05/30/2024 6:38 AM [facility] Bilirubin Total 0.5 0.2 - 1.2 mg/dL 05/30/2024 6:38 AM [facility] eGFR >90 >90 mL/min/1.7 3m2 05/30/2024 6:38 AM [facility] Comment:The GFR result was c alculated using the updated CKD-EPI Creatinine Equation (2020). Blood BLOOD SPECIMEN / Unknown Lab Venipuncture / Unknown 05/30/2024 5:45 AM CDT 05/30/2024 5:57 AM T Kate Dumont MD LAB - CHEMISTRY ORDERABL ES Final Result Performing Organization Address [facility] de Phone Number [facility] [address] * PHOSPHORUS BLOOD (05/30/2024 5:45 AM CDT) Only the most recent of3 resultswithin the time period is included. Phosphorus 2.5 2.5 - 4.5 mg/dL 05/30/2024 6:38 AM CDT [facility] Blood BLOOD SPECIMEN / Unknown Lab Venipuncture / Unknown 05/30/2024 5:45 AM CDT 05/30/2024 5:57 AM CDT Kate Dumont MD LAB - CHEMISTRY ORDERABL ES Final Result Performing Organization Address [facility] de Phone Number [facility] [address] [place] [address] * MAGNESIUM BLOOD (05/30/2024 5:45 AM CDT) Only the most recent of4 resultswithin the time period is included. Magnesium 1.7 1.6 - 2.6 mg/dL 05/30/2024 6:18 AM CDT [facility] Blood BLOOD SPECIMEN / Unknown Lab Venipuncture / Unknown 05/30/2024 5:45 AM CDT 05/30/2024 5:57 AM CDT Kate Dumont MD LAB - CHEMISTRY ORDERABL ES Final Result Performing Organization Address [facility] de Phone Number [facility] [address] [place] [address] * (ABNORMAL) HEMOGLOBIN A1C (05/29/2024 5:25 AM CDT) Only the most recent of2 resultswithin the time period is included. Hemoglobin A1c 6.0(H) 4.2 - 5.6 % 05/29/2024 6:02 AM CDT [facility] Estimated Average Glucose 126 mg/dL 05/29/2024 6:02 AM CDT [facility] Blood BLOOD SPECIMEN / Unknown Lab Venipuncture / Unknown 05/29/2024 5:25 AM CDT 05/29/2024 5:47 AM CDT Narrative [facility] - 05/29/2024 6:02 AM CDT HbA1c Interpretation: Normal: < 5.7% Pre-diabetes: 5.7-6.4% Diabetes: Equal to or greater than 6.5% Test results diagnostic of diabetes should be repeated for confirmation. Treatment target values recommended by ADA and other clinical organizations should be used to evaluate metabolic control in patients. This test should not replace glucose testing for patients with Type 1 diabetes, pediatric patients, or women. Falsely low HbA1c results may be observed in patients with clinical conditions that shorten erythrocyte life span or decrease mean erythrocyte age such as the presence of unstable hemoglobin variants, elevated hemoglobin F level or other causes of hemolytic anemia. HbA1c may not accurately reflect glycemic control when clinical conditions that affect erythrocyte survival are present. Severe Iron deficiency anemia may yield falsely high results. Hemoglobin A1c assay should not be used to diagnose or monitor diabetes in patients with malignancy, recent blood transfusion, chronic kidney or liver disease. This method may yield falsely low results when hemoglobin (HbF) exceeds 5% in the specimen. The Roche Alinity assay for the measurement of HbA1c is a National Glycohemoglobin Standardization Program (NGSP) certified method. Kate Dumont MD LAB - CHEMISTRY ORDERABL ES Final Result Performing Organization Address City/State/[place] [facility] de Phone Number [facility] [address] * GROSS + MICRO EXAM (ILL) (05/28/2024 9:49 AM CDT) Only the most recent of2 resultswithin the time period is included. Case Report Surgical Pathology Report Case: [id number] Authorizing Provider: Kate Dumont MD Collected: 05/28/2024 09:49 AM Ordering Location: [facility] [place][note 3] Received: 05/29/2024 09:27 AM [facility] Pathologist: Alexandro García MD Specimen: Stomach Resect Sub, Stomach Remnent 05/30/2024 10:12 AM CDT [facility] Final Diagnosis A. Partial stomach, sleeve gastrectomy: - Body/fundus segment of stomach, with no significant histopathologic abnormality 05/30/2024 10:12 AM [facility] Microscopic Description and Comment Microscopic examination is performed and substantiates the above diagnosis. 05/30/2024 10:12 AM [facility] Clinical History Morbid obesity. Hiatal hernia 05/30/2024 10:12 AM [facility] Gross Description A. The requisition and specimen(s) are identified with the patient's name, Anita Cisneros. Received in formalin labeled stomach remnant , is a stapled portion of stomach, 20.5 x 4.5 x 2.2 cm, demonstrating purple hitchcock and smooth serosa with scant attached yellow-hitchcock perigastric adipose tissue. Opening reveals pink-hitchcock to focally hemorrhagic mucosa with prominent rugal folds, no lesions or masses grossly identified. The wall thickness is 0.1 cm. Stem Sizer sections are submitted in cassettes A1-A2 with sections subjacent to the staple line in A1. AW 05/30/2024 10:12 AM [facility] Pathologist Location at [facility] 05/30/2024 10:12 AM [facility] Disclaimer The performance characteristics of all immunohistochemical and indirect immunofluorescence stains (if any) cited in this report were determined by the Histopathology Laboratory of [facility]. Some of these tests were developed by our own laboratory and have not been cleared or approved by the US Food and Drug Administration. The FDA does not require this test to go through premarket FDA review. These tests are used for clinical purposes. They should not be regarded as investigational or for research. This laboratory is certified under the Clinical Laboratory Improvement Amendments (CLIA) as qualified to perform high complexity clinical laboratory testing. H&E slides and special stains prepared at [facility], [place]. [address] (CLIA# [id number]) unless otherwise specified. This case was interpreted by the [facility] Department of Pathology. When applicable, select reference laboratory testing is performed at the [facility], [address] [place] [id number]. 05/30/2024 10:12 AM [facility] Embedded Images 05/30/2024 10:12 AM [facility] Pathology/Cytolo gy SPECIMEN FROM STOMACH OBTAINED BY PARTIAL GASTRECTOMY / Unknown 05/28/2024 9:49 AM CDT 05/29/2024 9:27 AM CDT Comment:Pre-op diagnosis: Morbid obesity (HCC) [E66.01] Hiatal hernia [K44.9] Kate Dumont MD LAB - PATHOLOGY/CYTOLOGY ORDERABLES Final Result Performing Organization Address [facility] de Phone Number [facility] [address] * HCG URINE QUALITATIVE (05/28/2024 6:20 AM CDT) Only the most recent of2 resultswithin the time period is included. Pathologist [facility] [place] hCG Qualitative Urine Negative Negative 05/28/2024 6:39 AM CDT [facility] Specific [place] UA >=1.030 1.005 - 1.030 05/28/2024 6:39 AM CDT [facility] Urine URINE / Unknown Collection / Unknown 05/28/2024 6:20 AM CDT 05/28/2024 6:24 AM CDT Cuca Carias APRN-VISUAL DESIGNER LAB - URINALYSIS ORDERAB LES Final Result Performing Organization Address [facility] de Phone Number [facility] [address] * BLOOD TYPE VERIFICATION (05/21/2024 1:03 PM CDT) Pathologist [facility] [place] ABO Rh A POS 05/21/2024 1:3 5 PM CDT [facility] Blood Bank BLOOD SPECIMEN / Unknown Lab Venipuncture / Unknown 05/21/2024 1:03 PM CDT 05/21/2024 1:05 PM CDT Edson Low MD LAB - BLOOD BANK ORDERABLES Fi nal Result Performing Organization Address [facility] de Phone Number [facility] [address] * TYPE + SCREEN PANEL (05/21/2024 12:52 PM CDT) ABO Rh A POS 05/21/2024 1:34 PM CDT [facility] Antibody Screen NEG 1:34 PM CDT [facility] Blood Bank BLOOD SPECIMEN / Unknown Lab Venipuncture / Unknown 05/21/2024 12:52 PM CDT 05/21/2024 12:58 PM CDT us Edson Low MD LAB - BLOOD BANK ORDERABLES Fi nal Result [facility] [address] [place] [address], [facility] * CT Chest Wo Contrast (05/04/2024 6:24 PM TRAINING PROJECT MANAGER) Anatomical Region Laterality Modality Chest Computed Tomogra phy 05/05/2024 8:06 AM TRAINING PROJECT MANAGER Impressions 05/05/2024 8:08 AM TRAINING PROJECT MANAGER IMPRESSION: 1. No acute cardiopulmonary process. > Interpreting Provider: Tyrell Delgado MD on 05/05/2024 8:08 AM Narrative 05/05/2024 8:08 AM TRAINING PROJECT MANAGER EXAM: CT CHEST WO CONTRAST DATE: 05/04/2024 HISTORY: I77.89: Enlarged aorta (HCC). CONTRAST: None TECHNIQUE: Multislice axial. Radiation dose reduction technique was utilized. COMPARISON: Chest x-ray from 03/23/2024. FINDINGS: No suspicious pulmonary nodules or infiltrates are seen. No pneumothorax or pleural effusion is present. The heart is normal in size. The thoracic aorta appears normal in course and caliber. No osteolytic or osteoblastic lesions are identified. Limited views of the upper abdomen reveal no acute findings. Procedure Note Tyrell Delgado MD - 05/05/2024 EXAM: CT CHEST WO CONTRAST DATE: 05/04/2024 HISTORY: I77.89: Enlarged aorta (HCC). CONTRAST: None TECHNIQUE: Multislice axial. Radiation dose reduction technique was utilized. COMPARISON: Chest x-ray from 03/23/2024. FINDINGS: No suspicious pulmonary nodules or infiltrates are seen. No pneumothorax or pleural effusion is present. The heart is normal insize. The thoracic aorta appears normal in course and caliber. No osteolyticor osteoblastic lesions are identified. Limited views of the upper abdomen reveal no acute findings. IMPRESSION: 1. No acute cardiopulmonary process. > Interpreting Provider: Tyrell Delgado MD on 05/05/2024 8:08 AM Result [facility] [place] Batsheva Cayla Islas [facility] ORDERABLES Final Resu lt * FOLATE (05/02/2024) Blood BLOOD SPECIMEN / Unknown 05/02/2024 Result [place] [facility] LAB - CHEMISTRY ORDERABLES F inal Result OTHER LAB * VITAMIN D 25-HYDROXY (05/01/2024) Blood BLOOD SPECIMEN / Unknown 05/01/2024 Result [place] [facility] LAB - CHEMISTRY ORDERABLES F inal Result OTHER LAB * PT PTT PANEL (05/01/2024) Blood BLOOD SPECIMEN / Unknown 05/01/2024 Result [facility] [place] Kate Dumont MD LAB - COAGULATION ORDERA BLES Final Result [facility] [address] [place], [place] [address] * TSH (05/01/2024) Blood BLOOD SPECIMEN / Unknown 05/01/2024 Result [place] [facility] LAB - CHEMISTRY ORDERABLES F inal Result Performing Organization Address City/[facility]/ZIP Co de Phone Number OTHER LAB * IRON + TRANSFERRIN PANEL (05/01/2024) Blood BLOOD SPECIMEN / Unknown 05/01/2024 Result [place] [facility] - CHEMISTRY ORDERABLES E dited Result - Final OTHER LAB * LIPID PROFILE (05/01/2024) Blood BLOOD SPECIMEN / Unknown 05/01/2024 Dayna Castillo [facility] LAB - CHEMISTRY ORDERABLES F inal Result OTHER LAB * XR CHEST 1VW PORTABLE (03/23/2024 12:14 PM TRAINING PROJECT MANAGER) Anatomical Region Laterality Modality Chest Computed Radiogr aphy 03/23/2024 12:4 4 PM TRAINING PROJECT MANAGER Impressions 03/23/2024 12:45 PM TRAINING PROJECT MANAGER IMPRESSION: No acute process. > Interpreting Provider: Jorge Luis Jessica MD on 03/23/2024 12:45 PM Narrative 03/23/2024 12:45 PM TRAINING PROJECT MANAGER PROCEDURE: XR CHEST 1VW PORTABLE 03/23/2024 12:44 PM HISTORY: I10: Essential (primary) hypertension. FINDINGS AND IMPRESSION: COMPARISON: No comparison. FINDINGS: Single view of the chest reveals no evidence of pulmonary disease. The heart and mediastinum are within normal limits. The diaphragms are smooth and the costophrenic angles are clear. The lungs are radiographically clear. Bony thorax is normal. Procedure Note Jorge Luis Jessica MD - 03/23/2024 PROCEDURE: XR CHEST 1VW PORTABLE 03/23/2024 12:44 PM HISTORY: I10: Essential (primary) hypertension. FINDINGS AND IMPRESSION: COMPARISON: No comparison. FINDINGS: Single view of the chest reveals no evidence of pulmonary disease. The heart and mediastinum are within normal limits. The diaphragms are smooth and the costophrenic angles are clear. The lungs are radiographically clear. Bony thorax is normal. IMPRESSION: No acute process. > Interpreting Provider: Jorge Luis Jessica MD on 03/23/2024 12:45 PM Sada Foster [facility] DIAGNOSTIC IMAGING OR DERABLES Final Result * EKG 12-LEAD (03/23/2024 11:41 AM TRAINING PROJECT MANAGER) Ventricular Rate 92 BPM [facility] Atrial Rate 92 BPM [facility] P-R Interval 134 ms [facility] QRS Duration ms 98 ms [facility] Q-T Interval ms 398 ms [facility] QTC Calculation (Bezet) 492 ms [facility] Calculated P [place] 47 degrees [facility] Calculated R [place] -22 degrees [facility] Calculated T [place] 137 degrees [facility] Interpretation EKG Normal sinus rhythm Minimal voltage criteria for LVH, may be normal variant ( R in aVL ) ST & T wave abnormality, consider lateral ischemia Abnormal ECG No previous ECGs available Confirmed by MD Twyla, [facility] ([id number]) on 03/24/2024 6:52:02 PM [facility] 03/23/2024 11:4 1 AM TRAINING PROJECT MANAGER 03/24/2024 6:52 PM TRAINING PROJECT MANAGER Sada Foster [facility]NJOS[facility] ECG ORDERABLES Edite d Result - Final [facility] MUSE * TROPONIN-I HIGH SENSITIVE (03/23/2024 11:36 AM TRAINING PROJECT MANAGER) Pathologist [facility] [place] Troponin I High Sensitive 12 <=14 ng/L 03/23/2024 12:17 PM TRAINING PROJECT MANAGER [facility] Blood BLOOD SPECIMEN / Unknown Venipuncture / Unknown 03/23/2024 11:36 AM TRAINING PROJECT MANAGER 03/23/2024 11:44 AM TRAINING PROJECT MANAGER Sada Foster [facility] LAB - CHEMISTRY ORDER SEGUN Final Result [facility] [address] [place] [address], [facility] * ECHO COMPLETE W CONTRAST (03/23/2024 10:58 AM TRAINING PROJECT MANAGER) Sinus of Valsalva 3.5 cm SSM CV FUJI PACS Myocardial strain charge 2 unitless SSM CV FUJI PACS LV EDV A2C 80.8 ml SSM CV FU JI PACS LV EDV A4C 163 ml SSM CV FU JI PACS LV ESV A2C 28.6 ml SSM CV FU JI PACS LV ESV A4C 47.5 ml SSM CV FU JI PACS IVSd 2D 1.2 cm SSM CV FUJ I PACS LVIDd 4.9 cm SSM CV FUJ I PACS LVIDs 3.4 cm SSM CV FUJ I PACS LVOT diam 2 cm SSM CV FUJ I PACS LVOT pk dmitry 98 cm/s SSM CV F UJI PACS LVPWd 1.2 cm SSM CV FUJ I PACS MV E' lateral dmitry 3.15 cm/s SSM CV FUJI PACS LV A2C EF 64.604 % SSM CV FUJ I PACS LV A4C EF 70.859 % SSM CV FUJ I PACS LV biplane EF 69.274 % SSM CV FUJI PACS LA vol BP 65.9 ml SSM CV FUJ I PACS LA size 4.1 cm SSM CV FUJ I PACS LA vol index 0.02 l/m SSM CV FUJI PACS AV pk dmitry 136 cm/s SSM CV FUJ I PACS Ascending aorta 3.6 cm SSM CV FUJI PACS IVC Diam Expiration 1.8 cm SSM CV FUJI PACS MV A pk dmitry 75 cm/s SSM CV F UJI PACS MV E pk dmitry 58.1 cm/s SSM CV F UJI PACS TAPSE 1.83 cm SSM CV FUJ I PACS Anatomical Region Laterality Modality Ultrasound 03/23/2024 9:43 AM TRAINING PROJECT MANAGER Narrative 03/26/2024 9:30 AM TRAINING PROJECT MANAGER Summary * The left ventricle is normal in size with normal systolic function and an estimated ejection fraction of 60-65% by visual estimate. Left ventricular wall motion is grossly normal, however endocardial definition is limited. The apical portion of the interventricular septum appears to be thinned out, however, it also appears to contract adequately. * There is mildly increased left ventricular wall thickness. * The left ventricular diastolic function is indeterminate. * Right ventricle is normal in size with normal systolic function. * Aortic valve is not well visualized with no stenosis, and trace regurgitation. * Mitral valve is normal, with no stenosis, and no regurgitation. * The ascending aorta is dilated measuring 3.6 cm with an index of 1.1 cm/m2. Patient Info Name: Anita Cisneros Age: 33 years : 1990 Gender: Female Ht: 69 in Wt: 440 lb BSA: 3.25 m2 HR: 87 bpm BP: 160 / 124 mmHg Heart Rhythm: Sinus Rhythm Exam Date: 03/23/2024 9:43 AM Patient Status: O/P Study Site: [facility] Primary Location: [facility] EStudy Info Technical Quality: Fair, Technically Difficult Exam Type: ECHO COMPLETE W CONTRAST Indications R06.02 - Shortness of breath Procedure(s) * A complete 2D, color Doppler, and spectral Doppler transthoracic echocardiogram was performed. * An Ultrasound Enhancing Agent (UEA) was utilized to enhance endocardial definition and opacify the left ventricle. Contrast/Agitated Saline Contrast / Saline: Definity Amount: 2.00 ml Reaction to Contrast: yes Reaction Description: Mild back pain Reason for Technically Difficult Study: body habitus Staff Referring Physician: Prakash Pickett Ordering Provider: Prakash Pickett Attending Physician: Prakash Pickett Materials Branch Chief: Lazara Islas [facility] Left Ventricle The left ventricle is normal in size. Left ventricular systolic function is normal with an estimated ejection fraction of 60-65% by visual estimate. There is mildly increased left ventricular wall thickness. The left ventricular diastolic function is indeterminate. Diastolic function is indeterminate due to discordant parameters. Right Ventricle The right ventricle is normal in size. Right ventricular systolic function is normal. Left Atrium The left atrium is normal in size with a left atrial volume index of 20 ml/m2 by BP MOD. Right Atrium The right atrium is normal in size. Atrial Septum Interatrial septum not well visualized. Aortic Valve Aortic valve is not well visualized with no stenosis, and trace regurgitation. Pulmonic Valve Pulmonic valve is not well visualized, with no stenosis, and no regurgitation. Mitral Valve Mitral valve is normal, with no stenosis, and no regurgitation. Tricuspid Valve Tricuspid valve is not well visualized, with no stenosis, and no regurgitation. Unable to assess pulmonary pressures due to a lack of tricuspid and pulmonic regurgitation. Inferior Vena Cava The inferior vena cava is not well visualized and therefore the right atrial pressure is assumed to be 8 mmHg. Pulmonary Veins Systolic blunting in the pulmonary venous flow. Pericardium/Pleural There is no pericardial effusion. Aorta The aortic root at the sinus of Valsalva is dilated measuring 3.5 cm with an index of 1.1 cm/m2. The ascending aorta is dilated measuring 3.6 cm with an index of 1.1 cm/m2. Measurements Left Ventricular Outflow Tract Name Value Normal LVOT 2D LVOT Diameter 2.0 cm LVOT Area 3.1 cm2 LVOT Doppler LVOT Peak Velocity 1.0 m/s LVOT Peak Gradient 4 mmHg Mitral Valve Name Value Normal MV Doppler MV PHT 56 ms MV Area (PHT) 3.93 cm2 4.00-5.00 MV Diastolic Function MV E Peak Velocity 0.6 m/sec MV A Peak Velocity 0.8 m/sec MV E/A 0.8 MV Decel Time (PW) 190 ms MV Annular TDI MV Septal e' Velocity 5 cm/s >=8 MV E/e' (Septal) 12 <=8 MV Lateral e' Velocity 3 cm/s >=10 MV E/e' (Lateral) 18 <=8 MV e' Average 4 cm/s MV E/e' (Average) 15 Tricuspid Valve Name Value Normal Estimated PAP/RSVP RA Pressure 8 mmHg <=5 Aorta Name Value Normal Ascending Aorta Ao Root Diameter (2D) 3.5 cm Ao Root Diam Index (2D) 1.1 cm/m2 Sinus of Valsalva Diameter 3.5 cm 2.4-3.6 Sinus of Valsalva Index 1.1 cm/m2 1.4-2.2 Asc Ao Diameter 3.6 cm 1.9-3.5 Asc Ao Diameter Index 1.1 cm/m2 1.0-2.2 Venous Name Value Normal IVC/SVC IVC Diameter 1.8 cm <=2.1 Aortic Valve Name Value Normal AV Doppler AV Peak Velocity 1.36 m/s AV Peak Gradient 7 mmHg AV Area (Cont Eq Dmitry) 2.26 cm2 AV DI (Dmitry) 0.72 AV Regurgitation 2D LVOT Area 3.14 cm2 Ventricles Name Value Normal LV Dimensions 2D/MM IVS Diastolic Thickness (2D) 1.2 cm 0.6-0.9 LVID Diastole (2D) 4.9 cm 3.8-5.2 LVPW Diastolic Thickness (2D) 1.2 cm 0.6-0.9 LVID Systole (2D) 3.4 cm 2.2-3.5 LV Mass (2D Cubed) 226 g 67-162 LV Mass Index (2D Cubed) 70 g/m2 43-95 Relative Wall Thickness (2D) 0.49 <=0.42 LV Fractional Shortening/Ejection Fraction 2D/MM LV Fractional Shortening (2D) 31 % 27-45 LV EF (2D Teichmanuelz) 58 % 54-74 LV Diastolic Volume (4C MOD) 163 ml LV EF (4C MOD) 71 % LV Diastolic Volume (2C MOD) 81 ml LV EF (2C MOD) 65 % LV Diastolic Volume (BP MOD) 124 ml 46-106 LV Diastolic Volume Index (BP MOD) 38 ml/m2 29-61 LV Systolic Volume (BP MOD) 38 ml 14-42 LV Systolic Volume Index (BP MOD) 12 ml/m2 8-24 LV EF (BP MOD) 69 % 54-74 LV Diastolic Length (4C) 9.5 cm LV Systolic Length (4C) 7.6 cm LV Stroke Volume (4C MOD) 116 ml RV Dimensions 2D/MM TAPSE 1.8 cm >=1.7 Atria Name Value Normal LA Dimensions LA Dimension (2D) 4.1 cm 2.7-3.8 LA Dimen Index (2D) 1.3 cm/m2 LA Volume (BP MOD) 66 ml LA Volume Index (BP MOD) 20 ml/m2 16-34 Report Signatures Finalized by Prakash Pickett on 03/26/2024 09:30 AM Procedure Note Prakash Pickett MD - 03/26/2024 Summary * The left ventricle is normal in size with normal systolic function andan estimated ejection fraction of 60-65% by visual estimate. Leftventricular wall motion is grossly normal, however endocardial definition is limited.The apical portion of the interventricular septum appears to be thinned out, however, it also appears to contract adequately. * There is mildly increased left ventricular wall thickness. * The left ventricular diastolic function is indeterminate. * Right ventricle is normal in size with normal systolic function. * Aortic valve is not well visualized with no stenosis, and trace regurgitation. * Mitral valve is normal, with no stenosis, and no regurgitation. * The ascending aorta is dilated measuring 3.6 cm with an index of 1.1 cm/m2. Patient Info Name: Anita Cisneros Age: 33 years : 1990 Gender: Female Ht: 69 in Wt: 440 lb BSA: 3.25 m2 HR: 87 bpm BP: 160 / 124 mmHg Heart Rhythm: Sinus Rhythm Exam Date: 03/23/2024 9:43 AM Patient Status: O/P Study Site: [facility] Primary Location: [facility] EStudy Info Technical Quality: Fair, Technically Difficult Exam Type: ECHO COMPLETE W CONTRAST Indications R06.02 - Shortness of breath Procedure(s) * A complete 2D, color Doppler, and spectral Doppler transthoracic echocardiogram was performed. * An Ultrasound Enhancing Agent (UEA) was utilized to enhanceendocardial definition and opacify the left ventricle. Contrast/Agitated Saline Contrast / Saline: Definity Amount: 2.00 ml Reaction to Contrast: yes Reaction Description: Mild back pain Reason for Technically Difficult Study: body habitus Staff Referring Physician: Prakash Pickett Ordering Provider: Prakash Pickett Attending Physician: Prakash Pickett Materials Branch Chief: Lazara Islas [facility] Left Ventricle The left ventricle is normal in size. Left ventricular systolic functionis normal with an estimated ejection fraction of 60-65% by visual estimate.There is mildly increased left ventricular wall thickness. The leftventricular diastolic function is indeterminate. Diastolic function is indeterminatedue to discordant parameters. Right Ventricle The right ventricle is normal in size. Right ventricular systolicfunction is normal. Left Atrium The left atrium is normal in size with a left atrial volume index of20 ml/m2 by BP MOD. Right Atrium The right atrium is normal in size. Atrial Septum Interatrial septum not well visualized. Aortic Valve Aortic valve is not well visualized with no stenosis, and trace regurgitation. Pulmonic Valve Pulmonic valve is not well visualized, with no stenosis, and no regurgitation. Mitral Valve Mitral valve is normal, with no stenosis, and no regurgitation. Tricuspid Valve Tricuspid valve is not well visualized, with no stenosis, and no regurgitation. Unable to assess pulmonary pressures due to a lack oftricuspid and pulmonic regurgitation. Inferior Vena Cava The inferior vena cava is not well visualized and therefore the rightatrial pressure is assumed to be 8 mmHg. Pulmonary Veins Systolic blunting in the pulmonary venous flow. Pericardium/Pleural There is no pericardial effusion. Aorta The aortic root at the sinus of Valsalva is dilated measuring 3.5 cmwith an index of 1.1 cm/m2. The ascending aorta is dilated measuring 3.6 cm withan index of 1.1 cm/m2. Measurements Left Ventricular Outflow Tract Name Value Normal LVOT 2D LVOT Diameter 2.0 cm LVOT Area 3.1 cm2 LVOT Doppler LVOT Peak Velocity 1.0 m/s LVOT Peak Gradient 4 mmHg Mitral Valve Name Value Normal MV Doppler MV PHT 56 ms MV Area (PHT) 3.93 cm2 4.00-5.00 MV Diastolic Function MV E Peak Velocity 0.6 m/sec MV A Peak Velocity 0.8 m/sec MV E/A 0.8 MV Decel Time (PW) 190 ms MV Annular TDI MV Septal e' Velocity 5 cm/s >=8 MV E/e' (Septal) 12 <=8 MV Lateral e' Velocity 3 cm/s >=10 MV E/e' (Lateral) 18 <=8 MV e' Average 4 cm/s MV E/e' (Average) 15 Tricuspid Valve Name Value Normal Estimated PAP/RSVP RA Pressure 8 mmHg <=5 Aorta Name Value Normal Ascending Aorta Ao Root Diameter (2D) 3.5 cm Ao Root Diam Index (2D) 1.1 cm/m2 Sinus of Valsalva Diameter 3.5 cm 2.4-3.6 Sinus of Valsalva Index 1.1 cm/m2 1.4-2.2 Asc Ao Diameter 3.6 cm 1.9-3.5 Asc Ao Diameter Index 1.1 cm/m2 1.0-2.2 Venous Name Value Normal IVC/SVC IVC Diameter 1.8 cm <=2.1 Aortic Valve Name Value Normal AV Doppler AV Peak Velocity 1.36 m/s AV Peak Gradient 7 mmHg AV Area (Cont Eq Dmitry) 2.26 cm2 AV DI (Dmitry) 0.72 AV Regurgitation 2D LVOT Area 3.14 cm2 Ventricles Name Value Normal LV Dimensions 2D/MM IVS Diastolic Thickness (2D) 1.2 cm 0.6-0.9 LVID Diastole (2D) 4.9 cm 3.8-5.2 LVPW Diastolic Thickness (2D) 1.2 cm 0.6-0.9 LVID Systole (2D) 3.4 cm 2.2-3.5 LV Mass (2D Cubed) 226 g 67-162 LV Mass Index (2D Cubed) 70 g/m2 43-95 Relative Wall Thickness (2D) 0.49 <=0.42 LV Fractional Shortening/Ejection Fraction 2D/MM LV Fractional Shortening (2D) 31 % 27-45 LV EF (2D Teicholz) 58 % 54-74 LV Diastolic Volume (4C MOD) 163 ml LV EF (4C MOD) 71 % LV Diastolic Volume (2C MOD) 81 ml LV EF (2C MOD) 65 % LV Diastolic Volume (BP MOD) 124 ml 46-106 LV Diastolic Volume Index (BP MOD) 38 ml/m2 29-61 LV Systolic Volume (BP MOD) 38 ml 14-42 LV Systolic Volume Index (BP MOD) 12 ml/m2 8-24 LV EF (BP MOD) 69 % 54-74 LV Diastolic Length (4C) 9.5 cm LV Systolic Length (4C) 7.6 cm LV Stroke Volume (4C MOD) 116 ml RV Dimensions 2D/MM TAPSE 1.8 cm >=1.7 Atria Name Value Normal LA Dimensions LA Dimension (2D) 4.1 cm 2.7-3.8 LA Dimen Index (2D) 1.3 cm/m2 LA Volume (BP MOD) 66 ml LA Volume Index (BP MOD) 20 ml/m2 16-34 Report Signatures Finalized by Prakash Pickett on 03/26/2024 09:30 AM us Prakash Pickett MD [facility] Final Result from Last 3 Months Insurance Advance Directives * Full Code (Latest Code Status on File) Date Activated Date Inactivated Comments 05/28/2024 11:55 AM 05/30/2024 5:51 PM Care Teams Program Management Professional Relationship Specialty Start Date End Date Leelee Dillon PCP - General 12/14/23
--- OUTSIDE RECORDS SUMMARY | 2024-06-18 16:53 | XMS_ITS ---
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 Name Role Phone Flip Medellin Primary Care Provider Allergies Allergen (clinical drug ingredient) Drug/Non Drug Allergy documented on EMR Reaction Allergy Type Onset Date Status Penicillin hives Drug Allergy Active Reason For Referral Reason Start individual the rapy Diagnosis 1 Bipolar 1 disorder ( F31.9) Referral Organization [facility]ly [facility], 1928–1983 Referring Provider First Name Flip Referring Provider Last Name Lacie Referring Provider Speciality Psychiatry Referred Provider Specialty Behavioral [facility] Clinical Notes Beth Grande 02:05:00 PM >TIER indicates client has already begun the process of intake for therapy. Referral Priority Routine REASON FOR VISIT 3 Month Psych F/U & Med Refill Medications Medication SIG (Take, Route, Frequency, Duration) Notes Start Date End Date Status hydrOXYzine HCl 25 MG 1-2 tablets as nee ded Orally three times a day Not-Shreyas ing Lurasidone HCl 60 MG 1 tablet in the candice sowmya with food Orally Once a day for 30 days Active Ozempic 0.5 mg Active Encounters Encounter Location Date Provider Diagnosis [facility] [address] [place] [address] [place] [address] 05/22/2024 Flip Medellin ADHD (attention deficit hyperactivity disorder), combined type F90.2 ; Bipolar 1 disorder F31.9 and Cannabis use disorder F12.90 Assessments Encounter Date Diagnosis (ICD Code) Assessment Notes Treatment Notes Treatment Clinical Notes Section Notes 05/22/2024 ADHD (attention deficit hyperactivity disorder), combined [...] 1 hospitalization for bobbi in 2020 at [facility] with diagnosis of Bipolar disorder. Denies any previous SA/HI or SIB or AVH. Reports passive SI when depressed. Has 1 son who is 8. Today's visit: Patient is a 33-year-old female who presents for a psychiatric follow-up over phone and is located in [place]. Previously seen Jan 2024 and during this [...] or be administered own oral medications per [facility] protocols. Provided informed consent with understanding of side effects, adverse effects, risks and benefits as well as alternative treatments as previously discussed and with the above recommended medications & other aspects of the treatment program. Agrees to return sooner if symptoms worsen or suicidal or homicidal ideations occur. 05/22/2024 Bipolar 1 disorder (ICD-10 - F31.9) 05/22/2024 Cannabis use disorder (ICD-10 - F12.90) Plan Of Treatment Medication Medication Name Sig Start Date Stop Date Notes Lurasidone HCl 60 MG 1 tablet in [...] 1 hospitalization for bobbi in 2020 at [facility] with diagnosis of Bipolar disorder. Denies any previous SA/HI or SIB or AVH. Reports passive SI when depressed. Has 1 son who is 8. Today's visit: Patient is a 33-year-old female who presents for a psychiatric follow-up over phone and is located in [place]. Previously seen Jan 2024 and during this [...] or be administered own oral medications per [facility] protocols. Provided informed consent with understanding of side effects, adverse effects, risks and benefits as well as alternative treatments as previously discussed and with the above recommended medications & other aspects of the treatment program. Agrees to return sooner if symptoms worsen or suicidal or homicidal ideations occur. Referrals Referral Date Details 05/22/2024 05/22/2024, Start in dividual therapy Next Appt Details Follow Up: 3 Months or PRN, Reason: med f/u Progress Notes * Anita CISNEROSDOB:1990 (33 yo F)Acc No.[id number]:05/22/2024 Patient: Anita MOSES Provider: JOVITA Watts :1990 A ge:33 Y S ex:Female Date:05/22/2024 Address:[facility] [place] [id number] Subjective: * Chief Complaints: * 3 Month Psych F/U & Med Refill * HPI: P sych F/U: Changes since last visit?: S rush she's doing good. New year is going okay having a lot of changes coming up soon. Having more anxiety than usual otherwiseit's been fine . Boyfriend buying a house and moving in with him and their son.Tuesday weight loss surgery, will be getting sleeve. Currently, on a liquid diet.Ozempic did not help. She's looking forward to the surgery and weight loss.Does feel nervous. States heart is good . Had another scan and it was fine .Sleep is wish it was better . Relies on marijuana nightly to sleep. Difficult not smoking this week. Denies any irritability. Energy level is prettygood . Concentration has been okay actually . Does report increase anxiety,noticing heart race accelerating . Buying a house is stress inducing . Denies any episodes of bobbi. Deniesany SI/HI. Denies any side effects frommedication.. D epression Screening: PHQ-9 L ittle interest or pleasure in doing things?Not at all F eeling down, depressed, or hopeless S everal days T rouble falling or staying asleep, or sleeping too much S ever F eeling tired or having little energy N ot at all P oor appetite or overeating N ot at all F eeling bad about yourself or that you are a failure, or have let yourself or your family down S ever T rouble concentrating on things, such as reading the newspaper or watching television S ever M oving or speaking so slowly that other people could have noticed; or the opposite, being so fidgety or restless that you have been moving around a lot more than usual N ot at all T houghts that you would be better off or of hurting yourself in some way N ot at all T otal Score 4 I nterpretation M inimal Depression Intervention D epression Screening Findings N egative S creening: [place] Suicide Severity Rating Scale (LF) D o you want to initiate with S creener form 1 . Wish to be : Have you wished you were or wished you could go to sleep and not wake up? N o 2 . Suicidal Thoughts: Have you actually had any thoughts of killing yourself? N o 6 . Suicide Behavior Question: Have you ever done anything,started to do anything, or prepared to end your life? N o I nterpretation: L ow Risk C SSRS Interpretation and Follow Up Plan: CSSRS Interpretation and Follow Up Plan C SSRS Screen documented using SF Y es R isk Disposition from SF L ow - No Follow Up Plan Required F ollow Up Plan N o Follow Up Plan required at this time. T imeframe of Screening T mayra * ROS: P sych ROS: Constitutional A [...] - healthy. . * Social History: P rimary Social History: L iving Arrangement L iving Arrangement: D ependent Living Alcohol Use A lcohol Use Frequency: N ever Illicit Substance Usage I llicit Substance Usage: Y es S ubstance Used: C annabis Employment Status E mployment Status: U nemployed * Medications: T akingLurasidone HCl 60 MG Tablet 1 tablet in the evening with food Orally Once a day Ozempic , Notes to Pharmacist: 0.5 mgTaking Lurasidone HCl 60 MG Tablet 1 tablet in the evening with food Orally Once a day Taking Ozempic , Notes to Pharmacist: 0.5 mgNot-TakinghydrOXYzine HCl 25 MG Tablet 1-2 tablets as needed Orally three times a day Medication List reviewed and reconciled with the patientNot-Taking hydrOXYzine HCl 25 MG Tablet 1-2 tablets as needed Orally three times a day Medication List reviewed and reconciled [...] ideation or thoughts of aggression. HALLUCINATIONS D oes not appear to be responding to internal stimuli. INSIGHT A dequate. JUDGMENT A dequate. FUND [...] DHD (attention deficit hyperactivity disorder), combined type Notes:History: Family hx of bipolar disorder in mother/grandmother possibly brother. Hx of trialing Trazodone 50 mg, Celexa 10 mg, Adderall 10 mg BID, Adderall XR 30 mg, olanzapine 10 mg, lithium 300 mg BID, Zoloft 50 mg, Lamictal 100 mg, Abilify 5 mg, Wellbutrin XL 150 mg, Lunesta 2 mg. 1 hospitalization for bobbi in 2020 at [facility] with diagnosis of Bipolar disorder. Denies any previous SA/HI or SIB or AVH. Reports passive SI when depressed. Has 1 son who is 8. Today's visit: Patient is a 33-year-old female who presents for a psychiatric follow-up over phone and is located in [place]. Previously seen Jan during this appt was continued on Latuda to 60 mg and stopped on atomoxetine (had self-discontinued).Previous PHQ-9score of 7, today is 5. Reports approved for gastric sleeve on Tuesday; understandably some anxiety about changes in her body and surgery. Reports mood stability on Latuda and wishes to continue taking as prescribed.Unable to complete AIMS due to nature of appt, denies any irregular muscle movements; would benefit from an in person appointment.No acute safety concerns at the time of this appt, she is agreeable to treatment plan and was provided an opportunity to ask questions. May self-administer medications or be administered own oral medications per [facility] protocols. Provided informed consent with understanding of side effects, adverse effects, risks and benefits as well as alternative treatments as previously discussed and with the above recommended medications & other aspects of the treatment program. Agrees to return sooner if symptoms worsen or suicidal or homicidal ideations occur. * Procedure Codes: * Follow Up: 3 Months or PRN (Reason: med f/u) * * Sign off status: Completed true * Provider: Toby Medellin, PMHNP Date: 05/22/2024 Generated for Horacio James/Bran on: 0 06/18/2024 04:52 PM CDT History and Physical Notes * HPI (History of Present Illness) Category Sub-Category Detail Notes Category Not es Depression Screening PHQ-9 Little inte rest or pleasure in doing things: Not at all Feeling down, depressed, or hopeless: Se veral days Trouble falling or staying asleep, or sl eeping too much: Several days Feeling tired or having little energy: N ot at all Poor appetite or overeating: Not at all Feeling bad about yourself o r that you are a failure, or have let yourself or your family down: Several days Trouble concentrating on thi ngs, such as reading the newspaper or watching television: Several days Moving or speaking so slowly that other people could have noticed; or the opposite, being so fidgety or restless that you have been moving around a lot more than usual: Not at all Thoughts that you would be b paul off or of hurting yourself in some way: Not at all Total Score: 4 Interpretation: Minimal Depression Intervention Depression Screening Findings: N egative Psych F/U Changes since last visit?: States she's doing good. New year is going okay having a lot of changes coming up soon. Having more anxiety than usual otherwise it's been fine . Boyfriend buying a house and moving in with him and their son. Tuesday weight loss surgery, will be getting sleeve. Currently, on a liquid diet. Ozempic did not help. She's looking forward to the surgery and weight loss. Does feel nervous. States heart is good . Had another scan and it was fine . Sleep is wish it was better . Relies on marijuana nightly to sleep. Difficult not smoking this week. Denies any irritability. Energy level is pretty good . Concentration has been okay actually . Does report increase anxiety, noticing heart race accelerating . Buying a house is stress inducing . Denies any episodes of bobbi. Denies any SI/HI. Denies any side effects from medication. Screening [place] Suicide Sev erity Rating Scale (LF) Do [...] end your life?: No Interpretation:: Low Risk CSSRS Interpretation and Follow Up Plan CSSRS Interpretation and Follow Up Plan CSSRS Screen documented using SF: Yes Risk Disposition from SF: Low - No Follo w Up Plan Required Follow Up Plan: No Follow Up Plan requir ed at this time. Timeframe of Screening: Today Examination Category Sub-Category Detail Notes Category Not [...] bassam ation or thoughts of aggression HALLUCINATIONS Does not appear to b e responding to internal stimuli INSIGHT Adequate JUDGMENT Adequate FUND OF KNOWLEDGE Adequate ABILITY TO PARTICIPATE IN TREATMENT Adeq uate WILLINGNESS TO PARTICIPATE IN TREATMENT Adequate LANGUAGE Appropriate - WDL Consultation Request Notes Referral Date Referring Provider Referred Provider Not es 05/22/2024 Flip Medellin , [facility] dual therapy
== END 2024-06-18 14:54 | disposition home or self-care (01) ==
LOC: ANHLAB 14:55
PROVIDERS: PCP Nurse Practitioner Family; Visit Provider Nurse Practitioner Family
DX: R39.9 Unspecified symptoms and signs involving the genitourinary system (principal)
CPT/HCPCS: 81001; 87086; 87186

== ENCOUNTER 2024-08-15 09:51 | Outpatient (CLI) | payer OTHER, SELFPAY ==
[2024-08-15 10:29] LABS: Basophils Percent Auto 0.2 % (0.2-1.2); Eosinophils Percent Auto 0.3 % (0-4.4); Hemoglobin 13.8 g/dL (12.0-15.0); Immature Granulocyte Absolute 0.03 K/mm3 (0.00-0.031); Immature Granulocyte Percent A 0.3 % (0-0.5); Lymphocytes Absolute Auto 2.08 K/mm3 (0.9-3.2); Lymphocytes Percent Auto 23.1 % (18.3-44.2); Mean Corpuscular HGB Conc 32.1 g/dl (32-36); Mean Corpuscular Hemoglobin 27.1 pg (26-34); Mean Corpuscular Volume 84.5 fl (80-100); Mean Platelet Volume 9.8 fl (7.4-10.4); Monocytes Absolute Auto 0.5 K/mm3 (0.1-0.6); Monocytes Percent Auto 5.6 % (2.6-8.5); Neutrophils Absolute Auto 6.3 K/mm3 (1.3-6.7); Neutrophils Percent Auto 70.5 % (45.5-73.1); Platelet Count Result 251 k/mm3 (150-375); Red Blood Count 5.09 M/mm3 (4.2-5.4)
[2024-08-15 10:52] LABS: Alanine Aminotransferase 34 U/L (6-35); Albumin Level 3.9 g/dL (3.5-5.1); Alkaline Phosphatase 42 U/L (38-126); Anion Gap 8 mmol/L (4-12); Aspartate Amino Transferase 33 U/L (14-36); Bilirubin,Total 0.7 mg/dL (0.2-1.3); Blood Urea Nitrogen 6 mg/dL (7-17); Calcium 9.1 mg/dL (8.4-10.2); Carbon Dioxide 24 mmol/L (22-30); Chloride 107 mmol/L (98-107); Cholesterol 151 mg/dL (0-200); Estimated Glomerular Filt Rate > 60; Glucose 93 mg/dL (65-110); HDL Direct 29 mg/dL; Potassium 4.3 mmol/L (3.4-5.0); Sodium 139 mmol/L (137-145); Total Protein 6.8 g/dL (6.3-8.2); Triglycerides 147 mg/dL (<150)
[2024-08-15 10:54] LABS: Hemoglobin A1C 5.4 % (<5.7)
--- OUTSIDE RECORDS SUMMARY | 2024-08-15 11:00 | XMS_ITS | Clinical Summary ---
Author Organization [facility] Address [address] [place] [address] Care Team Providers Care Deputy Administrator Name Role Phone Leelee Dillon Primary Care Provider Unavailabl e Source Comments [facility],non-owned Affiliates and Associated Physician Practices is amultiple site organization consisting of ambulatory clinics and hospital sitesin [place], [place], [place] and [place]. This disclosure is being madepursuant to the Care Everywhere program and may not contain all information available regarding this patient. Last updated 17.[facility] Allergies Active Allergy Reactions Criticality Noted Date [...] THE EVENING WITH FOOD 5 Active Multiple Vitamins-Minera ls (CENTRUM ULTRA WOMENS PO) Take 1 tablet by mouth once daily Active Ferrous Sulfate (IRON PO) Take 1 tablet by mouth once daily Active vitamin D, ergocalciferol, (Drisdol) 1.25 MG (57410 UT) capsuleIndicati ons:Vitamin D Deficiency Take 1 (one) capsule by mouth every 7 days Reasons: Vitamin D Deficiency 4 capsule 3 5 Active insulin lispro (HumaLOG;ADMelo g) 100 UNIT/ML pen Bariatric sliding scale in media very low dose Active calcium citrate (Citracal 950) 950 MG tablet Take by mouth once daily Active Probiotic Product (FilmLoop) capsuleIndicati ons:Bariatric surgery status Take 1 (one) capsule by mouth once daily 30 capsule 3 5 Active omeprazole (PriLOSEC) 40 MG capsuleIndicati ons:Bariatric surgery status Take 1 (one) capsule by mouth daily before breakfast for 90 days 90 capsule 5 08/17/19 25 Active acetaminophen (TYLENOL) 500 MG tabletIndicatio ns:Bariatric surgery status Pt is to take 2 tabs po every 8 hours for basal pain. May take additional 1 tab twice daily if needed. Pt to not exceed 4000mg daily. 40 tablet 5 Active Additional Information Patient not taking.Reported on 07/02/2024 ursodiol (Actigall) 300 MG capsuleIndicati ons:Bariatric surgery status Take 1 (one) capsule by mouth 2 times daily for 90 days Take 1 (one) capsule by mouth 2 times daily for 90 days Do Not start until 1 week post op. 180 capsule 5 08/17/19 25 Active hydrOXYzine HCl (Atarax) 10 MG tablet Take by mouth as needed for Itching Active lisinopril (Prinivil; Zestril) 40 MG tablet [...] TIMES DAILY 5 Active Blood Pressure Monitor [facility] [place] 1 Each once daily Check your blood pressure daily before taking your blood pressure medication Keep a log of your readings Do not take your blood pressure medicine if your reading is less than 120/80 5 Active metoprolol succinate XL 24hr (Toprol XL) 25 MG tablet Take 1 (one) tablet by mouth once daily 5 Active OneTouch UltraSoft 2 Lancets MISC 5 Active Active Problems Problem Noted Date Diagnosed Date Morbid obesity 05/28/2024 Hiatal hernia 05/28/2024 Encounters Date Type Department Care Team Description 08/10/[address] [facility] [address] [place] [address] Cuca Carias STUDY COORDINATOR-GROCERY BUYER Refill Request 07/16/2024 6:30 PM CDT - 07/18/2024 11:59 PM CDT Hospital Encounter [facility] [address] [place] [address] Quinten Agee MD Discharge Disposition: Home or Self Care 07/02/2024 1:30 PM CDT Video Visit [facility] [address] [place] [address] S/P laparoscopic sleeve gastrectomy 07/02/2024 1:00 PM CDT Video Visit [facility] [address] [place] [phone] Dayna Castillo APRN-GROCERY BUYER S/P laparoscopic sleeve gastrectomy ; History of repair of hiatal hernia 06/20/[address] [facility] [address] [place] [address] Cuca Carias STUDY COORDINATOR-GROCERY BUYER Refill Request 06/13/2024 9:45 AM CDT Video Visit [facility] [address] [place] [phone] S/P laparoscopic sleeve gastrectomy 06/11/[address] [facility] [address] [place] [phone] Cuca Carias STUDY COORDINATOR-GROCERY BUYER Refill Request 06/07/2024 9:00 AM CDT Office Visit [facility] - Internal Medicine [address], [address] [phone] Quinten Agee MD Sleepiness (Primary Dx); JOANNA (obstructive sleep apnea) 06/06/2024 1:30 PM CDT Video Visit [facility] [address] [place] [address] Cuca Carias STUDY COORDINATOR-GROCERY BUYER Status post laparoscopic sleeve gastrectomy ; History of repair of hiatal hernia 05/31/2024 Telephone [facility] [address] [place] [phone] Kate Dumont MD Post-Op 05/28/2024 8:24 AM CDT Anesthesia Event [facility] [address] [place] [address] Tam Arellano MD Heaney, Michael, MD 05/28/2024 7:45 AM CDT - 05/28/2024 10:10 AM CDT Surgery [facility] [address] [place] [address] Kate Dumont MD LAPAROSCOPIC SLEEVE GASTRECTOMY WITH HIATAL HERNIA REPAIR 05/28/2024 6:02 AM CDT - 05/30/2024 4:00 PM CDT Hospital Encounter [facility] [address] [place] [address] Kate Dumont MD Surgery General Discharge Disposition: Home or Self Care 05/28/2024 Travel 05/24/2024 11:15 AM CDT Video Visit [facility] [address] [place] [phone] Kate Dumont MD Morbid obesity due to excess calories 05/24/2024 Telephone [facility] [address] [place] [phone] Cuca Carias APRN-JANELLE Question 05/22/2024 Telephone [facility] [address] [place] [phone] Kate Dumont MD Bariatric Surgery Pre-op Instruction 05/21/2024 2:10 PM CDT Video Visit [facility] [address] [place] [phone] Cuca Carias, STUDY COORDINATOR-GROCERY BUYER Sushma Sherwood, BrianD Encounter for pre-bariatric surgery counseling and education 05/21/2024 12:00 PM CDT - 05/21/2024 11:59 PM CDT Hospital Encounter [facility] [address] [place], [place] [address] Kate Dumont MD Discharge Disposition: Home or Self Care 05/21/2024 Telephone [facility] [address] [place] [phone] Kate Dumont MD Hypertension 05/21/2024 Travel 05/21/2024 Telephone [facility] [address] [place] [phone] Kate Dumont MD Bariatric Surgery Pre-op Instruction 05/21/2024 Telephone [facility] - Diabetes Education [address] [place] [address] Ronald Byers, online communications manager 05/18/2024 Telephone [facility] [address] [place] [phone] Cuca Carias, STUDY COORDINATOR-GROCERY BUYER Pre Op Call from Last 3 Months Family History Medical [...] Date Recorded Patient Health Questionnaire-2 Score 0 07/02/2024 Comments No Sex and Gender Information Value Date Recorded Sex Assigned at Not on file Legal Sex Female 12:14 PM ABSTRACT MAKER Gender Identity Not on file Sexual Orientation [...] 21% 05/30/2024 7 :06 AM CDT Weight 177.8 kg (392 lb) 07/02/2024 1:33 PM CDT Height 175.3 cm (5' 9.02) 07/02/2024 1:33 PM CD T Body Mass Index 57.86 07/02/2024 1:33 PM CDT Plan of Treatment Upcoming Encounters Date Type Department Care Team (Late st Contact Info) Description 09/05/2024 11:00 AM CDT Clinical Support [facility] [address] [place] [address] 09/05/2024 11:30 AM CDT Office Visit [facility] [address] [place] [address] Cuca Carias, STUDY COORDINATOR-GROCERY BUYER [address] [place] [address] 10/09/2024 11:45 AM CDT Office Visit [facility] [address] [facility], [address] [place] [address] Prakash Pickett MD [address] [facility] [address] [place] [address] 11/30/2024 10:00 AM CDT Clinical Support [facility] [address] [place] [address] 11/30/2024 10:30 AM CDT Office Visit [facility] [address] [place] [phone] Cuca Carias, STUDY COORDINATOR-GROCERY BUYER [address] [facility] [place] [address] 05/29/2025 11:00 AM CDT Office [facility] [address] [place] [facility] [place] [phone] Cuca Carias, STUDY COORDINATOR-GROCERY BUYER [address] [facility] [place] [address] 05/29/2025 11:30 AM CDT Clinical Support [facility] [address] [place] [facility] [place] [phone] Health Maintenance Due Date Last Done Comments HIV SCREENING 09/21/2007 HEPATITIS C SCREENING 09/16/2010 DTAP/TDAP/TD VACCINES (1 - Tdap) 09/21/2011 HEPATITIS B VACCINE (1 of 3 - 19+ 3-dose series) 09/21/2011 PNEUMOCOCCAL VACCINE (1 of 2 - PCV) 09/21/2011 COVID-19 VACCINE (4 - season) 2023 12/26/2020, 06/19/2020, 05/29/2020 INFLUENZA VACCINE (Season Ended) 2024 12/24/2021, 12/18/2020, 10/17/2019, Additional history exists PAP SMEAR 08/23/2026 08/24/2023, 06/2 07/2023, 04/24/2021 ZOSTER VACCINE (1 of 2) 2042 DEPRESSION [...] this topic Medical Devices Implanted Type Area Certified Dialysis Technician Device Identifier Shelf Expiration Date Model / Serial / Lot Kit Tissue Clsr Duo Tssl 1 Prefl Syr - [id number] Implanted:Qty: 1 on 05/28/2024 by Kate Dumont MD at [facility] 01/27/2025 [id number] / [id number] / [id number] Procedures Procedure Name Priority Date/Time Associated Diagnosis Comments HOME SLEEP STUDY Routine 07/16/2024 12:0 0 PM CDT Sleepiness APHERESIS/TRANSFUSIO N ORDER 06/01/2024 3:27 PM CDT CARDIAC RHYTHM [...] 12:28 PM CDT PHOSPHORUS BLOOD Routine 05/28/2024 12:0 8 PM CDT Morbid obesity Hiatal hernia MAGNESIUM [...] AM CDT Morbid obesity (HCC) Hiatal hernia ME LAP SLEEVE GASTRECTOMY 05/28/2024 8:09 AM CDT Morbid obesity Hiatal hernia Special Needs ARRIVAL TIME: 0600 Abdominal Binder: 62/[address] Dumont HCG URINE QUALITATIVE Routine 05/28/2024 6:20 AM CDT GLUCOSE - POINT OF CARE Routine 05/28/2024 6:19 AM CDT BLOOD TYPE VERIFICATION Routine 05/21/2024 1:03 PM CDT TYPE + SCREEN PANEL Routine 05/21/2024 1 2:52 PM CDT Pre-op testing from Last 3 Months Results * HOME SLEEP STUDY (07/16/2024 12:00 PM CDT) 07/16/2024 12:0 0 PM CDT Narrative Procedure Note Quinten Agee MD - 07/18/2024 11:59 PM CDT [facility] Disorders Center All Night Sleep Study/Polysomnography Patient: ANITA MOORE Patient Type: CSN: [id number] Bday/Age: 07 1990 33 Stn/Rm/Bed: Sex/Race: F Unit #: [id number] Patient Adrs: [id number] Prim Phys: Attend Phys: [facility]//Zip: [place] [address] Admit Date: July 16, 2024 Disch To: Disch Date: DATE OF SERVICE: 07/16/2024 INDICATION: 33-year-old female who weighs 392 pounds, height is 5 feet 9inches, BMI is 58.1. The patient had a home sleep study with a WatchPAT device monitoring theperipheral arterial tone, pulse rate, pulse oximetry, actigraphy,respiratory effort, and snoring. The study was started at 9:24 p.m. and ended at 6:54 a.m. with a totalrecording time of 9 hours and 29 minutes. Total sleep time was 8 hours and 7 minutes. REM percentage was 12.3%. AHI based on the AASM guidelines with the SpO2 drop of 3% was 54.2. AHI based on CMS guidelines with a SpO2 drop of 4% was 48. Mean SpO2 was 94%, SpO2 grace was 77%. SpO2 equal to or less than 88%lasted for 36.2 minutes. IMPRESSION AND RECOMMENDATIONS: AHI of 48 and SpO2 grace of 77% isconsistent with severe sleep apnea syndrome. The patient is advised not to drive long distance till CPAP titration isstarted. Please schedule her for CPAP titration. Till she gets the CPAP titration because of the severe sleep apnea, sheshould be started on auto CPAP with a setting of 420 cm. Quinten Agee M.D., F.C.C.PChanel [facility] Board Certified Sleep Medicine AR/MODL /[id number] cc: Quinten Agee M.D., F.C.C.P. QUINTEN AGEE M.D., F.C.C.P. POLYSOMNOGRAPHY REPORT us Quinten Agee MD SLEEP CENTER ORDERABLES Final Re sult * APHERESIS/TRANSFUSION ORDER (06/01/2024 3:27 PM CDT) Narrative 06/01/2024 3:27 PM CDT Ordered by an unspecified provider. us Scanned Document NURSING - VITAL SIGNS AND ASSES SMENT Final Result * CARDIAC RHYTHM STRIP ORDER (06/01/2024 3:27 PM CDT) Narrative 06/01/2024 3:27 PM CDT Ordered by an unspecified provider. us Scanned Document CARDIAC SERVICES ORDERABLES Cooper randy Result - Final * GLUCOSE - POINT OF CARE (05/30/2024 12:08 PM CDT) Only the most recent of11 resultswithin the time period is included. [facility] Glucose WB/POC 108 70 - 125 mg/dL 05/30/2024 5:03 PM CDT [facility] Specimen Type Cap Fingerstick 2024 5:03 PM CDT [facility] Blood BLOOD SPECIMEN / Unknown 05/30/2024 12:08 PM CDT 05/30/2024 5:03 PM CDT us Kate Dumont MD LAB - POINT OF CARE JUN MAZARIEGOS Final Result Performing Organization Address City/State/[facility] Co de Phone Number [facility] [address] * (ABNORMAL) CBC W AUTO DIFFERENTIAL (05/30/2024 5:45 AM CDT) Only the most recent of3 resultswithin the time period is included. WBC 11.5(H) 4.0 - 10.7 x10E9/L 05/30/2024 6:01 AM T [facility] RBC Count 5.07 3.90 - 5.20 x10E12/L 05/30/2024 6:01 AM T [facility] Hemoglobin 13.8 11.9 - 15.8 g/dL 05/30/2024 6:01 AM [facility] Hematocrit 41.3 34.8 - 46.1 % 05/30/2024 6:01 AM [facility] MCV 81.5 80.0 - 98.0 fL 05/30/2024 6:01 AM [facility] MCH 27.2 26.7 - 33.6 pg 05/30/2024 6:01 AM [facility] MCHC 33.4 31.7 - 36.3 g/dL 05/30/2024 6:01 AM [facility] RDW-CV 14.8 11.3 - 14.8 % 05/30/2024 6:01 AM T [facility] Platelet Count 310 150 - 420 x10E9/L 05/30/2024 6:01 AM [facility] MPV 9.4 7.8 - 11.4 fL 05/30/2024 6:01 AM T [facility] Neutrophil % 68.3 41.0 - 74.0 % 05/30/2024 6:01 AM [facility] Lymphocyte % 24.5 17.0 - 47.0 % 05/30/2024 6:01 AM T [facility] Monocyte % 6.1 3.0 - 11.0 % 05/30/2024 6:01 AM T [facility] Eosinophil % 0.2 0.0 - 7.0 % 05/30/2024 6:01 AM T [facility] Basophil % 0.3 0.0 - 1.6 % 05/30/2024 6:01 AM T [facility] Immature Granulocytes % 0.6 0.0 - 1.0 % 05/30/2024 6:01 AM T [facility] Neutrophil Absolute 7.85(H) 1.60 - 7.50 x10E9/L 05/30/2024 6:01 AM T [facility] Lymphocyte Absolute 2.81 1.00 - 4.40 x10E9/L 05/30/2024 6:01 AM T [facility] Monocyte Absolute 0.70 0.15 - 1.00 x10E9/L 05/30/2024 6:01 AM [facility] Eosinophil Absolute 0.02 0.00 - 0.60 x10E9/L 05/30/2024 6:01 AM [facility] Basophil Absolute 0.04 0.00 - 0.13 x10E9/L 05/30/2024 6:01 AM [facility] Blood BLOOD SPECIMEN / Unknown Lab Venipuncture / Unknown 05/30/2024 5:45 AM CDT 05/30/2024 5:57 AM CDT us Kate Dumont MD LAB - HEMATOLOGY ORDERAB LES Final Result Performing Organization Address City/State/[facility] Co de Phone Number [facility] [address] * (ABNORMAL) COMPREHENSIVE METABOLIC PANEL (05/30/2024 5:45 AM CDT) Only the most recent of3 resultswithin the time period is included. [facility] Glucose 106 70 - 125 mg/dL 05/30/2024 6:38 AM CDT [facility] Sodium 137 136 - 145 mmol/L 05/30/2024 6:38 AM T [facility] Potassium 3.8 3.4 - 5.1 mmol/L 05/30/2024 6:38 AM [facility] Chloride 107 98 - 107 mmol/L 05/30/2024 6:38 AM [facility] CO2 21(L) 22 - 29 mmol/L 05/30/2024 6:38 AM [facility] Calcium 8.54 8.4 - 10.2 mg/dL 05/30/2024 6:38 AM [facility] Anion Gap 9 6 - 16 mmol/L 05/30/2024 6:38 AM [facility] BUN 8.1(L) 9.8 - 20.1 mg/dL 05/30/2024 6:38 AM [facility] Creatinine 0.61 0.57 - 1.11 mg/dL 05/30/2024 6:38 AM [facility] Alkaline Phosphatase 41 40 - 150 U/L 05/30/2024 6:38 AM [facility] ALT 121(H) <=55 U/L 05/30/2024 6:38 AM [facility] AST 68(H) 5 - 34 U/L 05/30/2024 6:38 AM [facility] Protein Total 6.8 6.4 - 8.3 gm/dL 05/30/2024 6:38 AM [facility] Albumin 3.4 3.4 - 4.8 gm/dL 05/30/2024 6:38 AM [facility] Globulin Total 3.4 2.6 - 4.0 gm/dL 05/30/2024 6:38 AM [facility] Albumin/Globulin Ratio 1.0 0.9 - 1.6 05/30/2024 6:38 AM [facility] Bilirubin Total 0.5 0.2 - 1.2 mg/dL 05/30/2024 6:38 AM [facility] eGFR >90 >90 mL/min/1.7 3m2 05/30/2024 6:38 AM [facility] Comment:The GFR result was c alculated using the updated CKD-EPI Creatinine Equation (2020). Blood BLOOD SPECIMEN / Unknown Lab Venipuncture / Unknown 05/30/2024 5:45 AM CDT 05/30/2024 5:57 AM T Kate Dumont MD LAB - CHEMISTRY ORDERABL ES Final Result Performing Organization Address City/[facility]/ZIP Co de Phone Number [facility] [address] * PHOSPHORUS BLOOD (05/30/2024 5:45 AM CDT) Only the most recent of3 resultswithin the time period is included. Phosphorus 2.5 2.5 - 4.5 mg/dL 05/30/2024 6:38 AM CDT [facility] Blood BLOOD SPECIMEN / Unknown Lab Venipuncture / Unknown 05/30/2024 5:45 AM CDT 05/30/2024 5:57 AM CDT Kate Dumont MD LAB - CHEMISTRY ORDERABL ES Final Result Performing Organization Address [facility] de Phone Number [facility] [address] [place] [address] * MAGNESIUM BLOOD (05/30/2024 5:45 AM CDT) Only the most recent of4 resultswithin the time period is included. Magnesium 1.7 1.6 - 2.6 mg/dL 05/30/2024 6:18 AM CDT [facility] Blood BLOOD SPECIMEN / Unknown Lab Venipuncture / Unknown 05/30/2024 5:45 AM CDT 05/30/2024 5:57 AM CDT Kate Dumont MD LAB - CHEMISTRY ORDERABL ES Final Result Performing Organization Address [facility] Co de Phone Number [facility] [address] [place] [address] * (ABNORMAL) HEMOGLOBIN A1C (05/29/2024 5:25 AM CDT) Hemoglobin A1c 6.0(H) 4.2 - 5.6 % 05/29/2024 6:02 AM CDT [facility] Estimated Average Glucose 126 mg/dL 05/29/2024 6:02 AM CDT [facility] Blood BLOOD SPECIMEN / Unknown Lab Venipuncture / Unknown 05/29/2024 5:25 AM CDT 05/29/2024 5:47 AM CDT [facility] - 05/29/2024 6:02 AM CDT HbA1c [...] ORDERABL ES Final Result Performing Organization Address City/State/[facility] Co de Phone Number [facility] [address] * GROSS + MICRO EXAM (ILL) (05/28/2024 9:49 AM CDT) Case Report Surgical Pathology Report Case: [id number] Authorizing Provider: Kate Dumont MD Collected: 05/28/2024 09:49 AM Ordering Location: [facility] Received: 05/29/2024 09:27 AM [facility] - [facility] Pathologist: Alexandro García MD Specimen: Stomach Resect Sub, Stomach Remnent 05/30/2024 10:12 AM CDT [facility] Final Diagnosis A. Partial stomach, sleeve gastrectomy: - Body/fundus segment of stomach, with no significant histopathologic abnormality 05/30/2024 10:12 AM CDT [facility] at 1012 CDT Microscopic Description and Comment Microscopic examination is performed and substantiates the above diagnosis. 05/30/2024 10:12 AM T [facility] Clinical History Morbid obesity. Hiatal hernia 05/30/2024 10:12 AM [facility] Gross Description A. The requisition and specimen(s) are identified with the patient's name, Anita Moore. Received in formalin labeled stomach remnant, is a stapled portion of stomach, 20.5 x 4.5 x 2.2 cm, demonstrating purple hitchcock and smooth serosa with scant attached yellow-hitchcock perigastric adipose tissue. Opening reveals pink-hitchcock to focally hemorrhagic mucosa with prominent rugal folds, no lesions or masses grossly identified. The wall thickness is 0.1 cm. Ballet Soloist sections are submitted in cassettes A1-A2 with sections subjacent to the staple line in A1. AW 05/30/2024 10:12 AM [facility] Pathologist Location at [facility] 05/30/2024 10:12 AM [facility] Disclaimer The performance characteristics of all immunohistochemical and indirect immunofluorescence stains (if any) cited in this report were determined by the Histopathology Laboratory of [facility]. Some of these tests were developed by [...] H&E slides and special stains prepared at [facility], [place]. [address] (CLIA# [id number]) unless otherwise specified. This case was interpreted by the [facility] Department of Pathology. When applicable, select reference laboratory testing is performed at the [facility], [address] [place] [address]. 05/30/2024 10:12 AM [facility] Embedded Images 05/30/2024 10:12 AM [facility] Pathology/Cytolo gy SPECIMEN FROM STOMACH OBTAINED BY PARTIAL GASTRECTOMY / Unknown 05/28/2024 9:49 AM CDT 05/29/2024 9:27 AM CDT Comment:Pre-op diagnosis: Morbid obesity (HCC) [E66.01] Hiatal hernia [K44.9] Kate Dumont MD LAB - PATHOLOGY/CYTOLOGY ORDERABLES Final Result [facility] [address] * HCG URINE QUALITATIVE (05/28/2024 6:20 AM CDT) hCG Qualitative Urine Negative Negative 05/28/2024 6:39 AM CDT [facility] Specific [place] UA >=1.030 1.005 - 1.030 05/28/2024 6:39 AM CDT [facility] Urine URINE / Unknown Collection / Unknown 05/28/2024 6:20 AM CDT 05/28/2024 6:24 AM CDT Cuca Carias STUDY COORDINATOR-GROCERY BUYER LAB - URINALYSIS ORDERAB LES Final Result [facility] [address] [place] [address] * BLOOD TYPE VERIFICATION (05/21/2024 1:03 PM CDT) ABO Rh A POS 05/21/2024 1:3 5 PM CDT [facility] Blood Bank BLOOD SPECIMEN / Unknown Lab Venipuncture / Unknown 05/21/2024 1:03 PM CDT 05/21/2024 1:05 PM CDT Edson Low MD LAB - BLOOD BANK ORDERABLES Fi nal Result [facility] [address] * TYPE + SCREEN PANEL (05/21/2024 12:52 PM CDT) ABO Rh A POS 05/21/2024 1:34 PM CDT [facility] Antibody Screen NEG 1:34 PM CDT [facility] Blood Bank BLOOD SPECIMEN / Unknown Lab Venipuncture / Unknown 05/21/2024 12:52 PM CDT 05/21/2024 12:58 PM CDT us Edson Low MD LAB - BLOOD BANK ORDERABLES Fi nal Result [facility] [address] [place] [address], [facility] from Last 3 Months Insurance Advance Directives * Full Code (Latest Code Status on File) Date Activated Date Inactivated Comments 05/28/2024 11:55 AM 05/30/2024 5:51 PM Care Teams Deputy Administrator Relationship Specialty Start Date End Date Leelee Dillon PCP - General 12/14/23
--- OUTSIDE RECORDS SUMMARY | 2024-08-15 11:00 | XMS_ITS | Encounter Summary ---
Author Organization [facility] Address [address] 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 (HCC) Kate Dumont MD [address] [place] [address] Phone: tel: fax: [facility] - [facility] [address] [place] [address] Phone: tel: Referral ID Status Reason Start Date Expiration Date V isits Requested Visits Authorized [id number] Closed Specialty Services Required 05/03/2024 05/03/2025 5 5 Scheduling Instructions Surgery date 05/28/24 EMAN Reason for Visit * Reason Onset Date Comments Surgery Scheduling 05/03/2024 Encounter Details Date Type Department Care Team (Late st Contact Info) Description 05/03/2024 Telephone [facility] [address] [place] [address] Kate Dumont MD [address] [place] [address] Surgery Scheduling Social History Tobacco [...] on file Legal Sex Female 12:14 PM KNIF[place]AN Gender Identity Not on file Sexual Orientation Not on file documented as of this encounter Functional Status * Is person deaf or have serious hearing difficulty? Answer Date of Assessment Author No 04/06/2024 12:32 PM [place] Jolie Max RN * Is person blind or have serious difficulty seeing? Answer Date of Assessment Author No 04/06/2024 12:32 PM [place] Jolie Max RN * Does person have serious difficulty walking/climbing stairs? Answer Date of Assessment Author No 04/06/2024 12:32 PM [place] Jolie Max RN * Does person have difficulty dressing/bathing? Answer Date of Assessment Author No 04/06/2024 12:32 PM [place] Jolie Max RN * Does person have difficulty doing errands alone? Answer Date of Assessment Author No 04/06/2024 12:32 PM [place] Jolie Max RN * Over the past 2 weeks, how often have you been bothered by any of the following problems? Question Answer Date of Assessment Author Little interest or pleasure in doing things Not at all 07/02/2024 12:59 PM Janay Cedillo RN Feeling down, depressed, or hopeless Not at all 07/02/2024 12:59 PM José Miguel Parr RN Patient Health Questionnaire-2 Score 0 07/02/2024 12:59 PM Janay Parr RN documented as of this encounter Mental Status * Does person have difficulty concentrating/remembering/making decisions? Answer Entry Date Author No 04/06/2024 12:32 PM [place] Jolie Max RN documented in this encounter Miscellaneous Notes * Telephone Encounter - Deana Hooker LPN - 05/03/2024 3:53 PM [place]AN Diabetes ed ordered. EMAN * Telephone Encounter - Norma France CMA - 05/03/2024 3:26 PM KNIFEMAN Surgery Scheduled Called patient and surgery is scheduled for 05/28/24 in [place]. Patient aware of all preop appointments and instructions have been sent to them through [id number]. Pt v/u and will call us with any additional questions. Yes DM education needed EMAN documented in this encounter Plan of Treatment Upcoming Encounters Date Type Department Care Team (Late st Contact Info) Description 09/05/2024 11:00 AM CDT Clinical Support [facility] [address] [place] [phone] 09/05/2024 11:30 AM CDT Office Visit [facility] [address] [place] [phone] Cuca Carias, TECHNOLOGY TRAINING ASSOCIATE-FURNACE LOADER [address] [place] [address] 10/09/2024 11:45 AM CDT Office Visit [facility] [address] [place] [address] Prakash Pickett MD [address] [place] [phone] 11/30/2024 10:00 AM CDT Clinical Support [facility] [address] [place] [phone] 11/30/2024 10:30 AM CDT Office Visit [facility] [address] [place] [phone] Cuca Carias, TECHNOLOGY TRAINING ASSOCIATE-FURNACE LOADER [address] [place] [address] 05/29/2025 11:00 AM CDT Office Visit [facility] [address] [place] [phone] Cuca Carias, TECHNOLOGY TRAINING ASSOCIATE-FURNACE LOADER [address], [place] [address] 05/29/2025 11:30 AM CDT Clinical Support [facility] [address] [place] [phone] Scheduled Referrals Name Type Priority Associated Diagnoses Orde r Schedule AMB REFERRAL TO DIABETES SELF-MGT EDUCATION/TRAININ G Outpatient Referral Routine Type 2 diabetes mellitus without complication, unspecified whether detention insulin use 5 Occurrences starting 05/03/2024 until 05/03/2025 documented as of this encounter Visit Diagnoses Diagnosis Type 2 diabetes mellitus without complication, unspecified whether detention insulin use (HCC)- Primary documented in this encounter Care Teams Big Data Engineer Relationship Specialty Start Date End Date Leelee Dillon PCP - General 12/14/23 documented as of this encounter
--- OUTSIDE RECORDS SUMMARY | 2024-08-15 11:00 | XMS_ITS | Clinical Summary ---
Author Organization [facility] Address [address] [place] [phone] Care Team Providers Care Timber Grader Name Role Phone Unavailable Primary Care Provider Unavailabl e Social History Tobacco Use Types Packs/Day Years Used Date Smoking Tobacco: Never Assessed Comments Unknown Sex and Gender Information Value Date Recorded Sex Assigned at Not on file Legal Sex Female 1:08 PM PALLIATIVE CARE PHYSICIAN Gender Identity Not on file Sexual [...] patient's age to complete this topic Insurance PREFERRED
--- OUTSIDE RECORDS SUMMARY | 2024-08-15 11:00 | XMS_ITS | CONTINUITY OF CARE DOCUMENT ---
Author Name yordyericmarion Address Unknown Organization [facility] Address [address] [place] [address] Phone [phone] Care Team Providers Care English Language Learner Teacher Name Role Phone Julio Cesar KO, Aislinn Unavailable [phone] ALEXANDRO KO, ELTON Unavailable Unavailable EDEL KO, LISA Unavailable [phone] INSURANCE PROVIDERS Payer name Policy type / Coverage type Amarjit red libertarian ID [facility] [id number]
[2024-08-15 11:02] LABS: LDL Cholesterol Direct 72 mg/dL
== END 2024-08-15 09:52 | disposition home or self-care (01) ==
LOC: ANHLAB 09:52
PROVIDERS: PCP Nurse Practitioner Family; Visit Provider Nurse Practitioner Family
DX: Z13.21 Encounter for screening for nutritional disorder (principal); I10 Essential (primary) hypertension; E88.818 Other insulin resistance; E11.69 Type 2 diabetes mellitus with other specified complication; E66.01 Morbid (severe) obesity due to excess calories; Z68.45 Body mass index [BMI] 70 or greater, adult
CPT/HCPCS: 36415; 80053; 80061; 83036; 85025